=== PATIENT | male | born 1960 | race Caucasian/White ===

== ENCOUNTER → 2021-05-17 16:29 | Outpatient (CLI) | payer OTHER, SELFPAY ==
[2021-05-17 18:12] LABS: PSA,Total - Annual Screen 0.73 ng/mL (0.00-4.00)
== END ==
PROVIDERS: PCP Internal Medicine Infectious Disease; Visit Provider Urology
DX: Z12.5 Encounter for screening for malignant neoplasm of prostate (principal)
CPT/HCPCS: 36415; 84153; G0103

== ENCOUNTER 2022-04-07 04:18 | Inpatient (IN) | payer OTHER, SELFPAY ==
[2022-04-07] VITALS (7 sets, daily range): BP systolic 121–140; BP diastolic 79–97; PULSE 107–137; RESP 18–20; TEMP 36.3–37.3; O2SAT 97–99; BMI 42.3
--- NOTE | 2022-04-07 04:15 | US_ITS ---
STUDY: RENAL ULTRASOUND - COMPLETE REASON FOR EXAM: Male, 61 years old. MAXI on CKD TECHNIQUE: Ultrasound evaluation of the kidneys was performed with real-time and static hansen-scale imaging. COMPARISON: None. FINDINGS: RIGHT KIDNEY: Normal location of the right kidney, which is normal in size. The right kidney measures 12.9 cm x 5.2 cm x 5.3 cm. There is a normal cortex of the right kidney. The renal cortex measures 1.7 cm. There is no right renal mass or cyst. There are no right renal calculi. There is no right hydronephrosis. DISTAL RIGHT URETER: There is non-visualization of the distal right ureter. There is no demonstrated right ureterovesical junction calculus. There is a visualized right ureteral jet. LEFT KIDNEY: Normal location of the left kidney, which is normal in size. The left kidney measures 13.1 cm x 6.2 cm x 6.7 cm. There is a normal cortex of the left kidney. The renal cortex measures 2.0 cm. There is a 1.3 cm x 1.8 cm x 1.6 cm left renal cyst. There are no left renal calculi. There is no left hydronephrosis. DISTAL LEFT URETER: There is non-visualization of the distal left ureter. There is no demonstrated left ureterovesical junction calculus. There is a visualized left ureteral jet. BLADDER: The distended urinary bladder has a volume of 168 ml. There is a normal wall thickness of the distended urinary bladder. There is no demonstrated mass within the urinary bladder. There are no demonstrated bladder calculi. US/Kidney and Bladder IMPRESSION: There is a 1.3 cm x 1.8 cm x 1.6 cm left renal cyst. Electronically Signed: Sergio Pollard MD at 10:54 EDT ,
--- NOTE | 2022-04-07 04:15 | VDLE_ITS ---
Reason For Study: Pulmonary embolism RIGHT LEFT GSV is normal. GSV is normal. CFV is compressible, spontaneous, phasic, CFV is compressible, spontaneous, phasic, competent and demonstrates normal competent, and demonstrates normal augmentation. augmentation. FV is compressible, spontaneous, phasic, FV is compressible, spontaneous, phasic, competent and demonstrates normal competent and demonstrates normal augmentation. augmentation. POP V is compressible, spontaneous, phasic, POP V is compressible, spontaneous, phasic, competent and demonstrates normal competent and demonstrates normal augmentation. augmentation. T/P Trunk is compressible. T/P Trunk is compressible. PTV is compressible. PTV is compressible. RT PerV is compressible. LT PerV is compressible. Procedure This is a venous duplex using B-mode, color flow and spectral Doppler. Exam performed portable in patient room. A preliminary report was called and/or faxed to [facility]. VL/Venous Duplex US - Ezra Extrem Interpretation Summary No evidence for acute deep venous thrombosis bilateral lower extremities with p atent and compressible bilateral great saphenous veins. Ordering Physician: Kaykay Marshall Referring Physician: Basil Romero Performed By: Mikaela Hull RVT
[2022-04-07] MEDS: Acetaminophen 325 MG Tablet 650 MG PO ×2 (10:07→16:02)
[2022-04-07] MEDS: oxyCODONE 5 MG Tablet PO ×2 (10:07→16:02)
[2022-04-07] MEDS: 0.9% Normal Saline 1,000 ML 125 ML IV ×2 (10:10→19:26)
[2022-04-07 10:55] LABS: Urine Sodium 30 mmol/L (Not Establ.)
--- NOTE | 2022-04-07 11:17 | PCM.HP.STD ---
HPI - General General Date of Admission: 04/07/22 Date of Service: 04/07/22 Chief Complaint: Shortness of breath, mainly dyspnea on exertion, low-grade fever, generalized weakness and hematuria, direct admit from [facility] in ED HPI Narrative GAMA AGUILERA, is a 61 M who is being directly admitted in PCU from [facility] ED for generalized weakness, shortness of breath dyspnea on exertion, low-grade fever and generalized weakness for about 4 days. He also has blood in the urine for last 2 days. Patient had recent right hip replacement on 03/29/2022, surgical scar is healed, no discharge, no tenderness or hematoma. 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 He denies chest pain, tightness or pressure. Denies history of MS coronary artery disease or coronary angiogram or cardiac stent. No prior echo. Patient also having low-grade fever and has mild cough for 3 to 4 days. He has swelling of both dorsum of hand, forearm and elbow point. Patient has history of gout and is pearly white nodules on inside of right hand finger. Patient also has swelling of right great toe and ankle. Patient denies nausea vomiting diarrhea. No hematemesis, hematochezia or melena or bright red rectal bleed. Patient had history of hesitancy, difficulties initiation of urine, weak stream and has seen Dr. Burgos about a year ago. As per , he had cystoscopy and was normal. UA done in March shows WBC 11-15, 1+ urine bacteria and a 25. Patient denies burning micturition. Labs done in the troponin reviewed and discussed in assessment plan. Twelve-lead EKG no acute evidence of ischemia. The patient is further admitted in PCU. [facility] Medical History Chronic anemia CKD (chronic kidney disease), stage III HTN (hypertension) Morbid obesity Venous stasis Home Medications cholecalciferol (vitamin D3) 50 mcg (2,000 unit) tablet (Vitamin D3) 1 tab DAILY Check with primary doctor 04/07/22 [History Last Taken Unknown] furosemide 40 mg tablet 1 tab BID Check with primary doctor 04/07/22 [History Last Taken Unknown] losartan 50 mg tablet 1 tab DAILY Check with primary doctor 04/07/22 [History Last Taken Unknown] metolazone 5 mg tablet 1 tab DAILY Check with primary doctor 04/07/22 [History Last Taken Unknown] potassium chloride 10 mEq tablet,extended release 2 tab PO DAILY Check with primary doctor 04/07/22 [History Last Taken Unknown] sildenafil (pulm.hypertension) 20 mg tablet 1 tab DAILY Check with primary doctor 04/07/22 [History Last Taken Unknown] Allergy/AdvReac Type Severity Reaction Status Date / Time Sulfa (Sulfonamide Allergy Intermediate Hives Verified 04/07/22 04:09 Antibiotics) Family History Father Prostate cancer Diabetes Hypertension Grandfather Prostate cancer Mother Diabetes Hypertension Other Colon cancer Surgical History History of right hip replacement History of umbilical hernia repair Social History household members: spouse Smoking Status: Never smoker alcohol intake: never substance use type: does not use ROS ROS Narrative Constitutional: Reports fatigue and weakness. Morbid obesity. HEENT: Reports systems reviewed and no addt'l complaints, except as documented Respiratory/Chest: As mentioned in HPI Gastrointestinal: Denies coffee ground emesis, hematemesis or vomiting Genitourinary: Denies burning urination. Hematuria. History of lower Moshe tract symptoms as mentioned in HPI but no dysuria Musculoskeletal: Pain over both arms, right ankle. ROM limited. Recent right hip replacement. Neurologic: Denies seizure-like activity. No focal weakness. skin: No ulcer. No rash Endocrinology: Reports systems reviewed and no addt'l complaints, except as documented Hematologic/Lymphatic: Bilateral lymphedema. Leg swelling. Rest 14 ROS are negative except as mentioned in HPI Vital Signs Vital Signs Vital Signs: 04/07/22 09:05 Temperature 99.2 F H Temperature Source Oral Pulse Rate 132 H Respiratory Rate 19 H Blood Pressure 124/79 H Blood Pressure Mean 94 Blood Pressure Source Monitor Blood Pressure Position Semi-Fowlers Blood Pressure Location Right Arm Pulse Ox 99 Oxygen Delivery Method Room Air Weight Weight: 295 lb 6.711 oz Body Mass Index (BMI) 42.3 Physical Exam Narrative Physical exam General: Alert, Oriented x3, Cooperative, morbid obesity BMI 42.4 kg/m?. HEENT: Atraumatic, PERRLA, EOMI, Normocephalic Oral: Deep oropharyngeal structures not clearly visualized. No obvious ulcer Mucosal Lesions/ Ulcerations Neck: Supple, No JVD, Negative Carotid Bruits Lungs: Air entry diminished in bilateral lung bases. No crepitation/rhonchi Cardiovascular: Sinus tachycardia, Normal S1, Normal S2, No murmurs Abdomen: Abdominal binder present. History of incisional hernia repair. Bowel Sounds Present, Soft, Non Tender, flat abdomen : Recent decrease in urine output in last 2 days. No renal angle tenderness. No suprapubic tenderness. Extremities: Bilateral lower extremity pitting edema, Capillary Refill Less than 3 Seconds Skin: White chalky nodules over medial aspect of right third finger, right great toe. Musculoskeletal: Tenderness over hand, both elbow joints, right ankle and right great toe. Induration of both forearms. Status post right hip replacement, surgical scar well-healed Neurological: Cranial nerves II-XII grossly intact, DTR 2+/4 and Symmetrical, Neuro grossly intact Psych/Mental Status: flat affect Results Lab / Micro Data Labs: Laboratory Results - last 24 hr 04/07/22 10:24: Ur Random Sodium 30 04/07/22 10:24: Urine Creatinine 82.40 Radiology Impression Renal Ultrasound 04/07/22 04:15 IMPRESSION: There is a 1.3 cm x 1.8 cm x 1.6 cm left renal cyst. Electronically Signed: Sergio Pollard MD at 10:54 EDT , Assessment & Plan Assessment/Plan (1) MAXI (acute kidney injury): PLAN: This is a 61-year-old patient woman admitted directly from ED for multiple acute issues including shortness of breath, dyspnea on mild exertion, low-grade fever, generalized weakness and swelling, severe anemia and acute kidney injury on CKD: 1. Acute normocytic normochromic anemia with history of chronic anemia: In ED, hemoglobin 7.2, MCV 84, platelet 560,000. Patient has mild hematuria. Stool for occult blood negative. Patient had 1 unit of PRBC transfusion in [place] ED. labs CBC CMP are ordered. GI is consulted. No prior history of GI bleed, PUD or chronic GI condition. Protonix 40 mg IV twice daily. 2. Acute kidney injury on CKD stage III, unclear type: Suspected mostly due to diuretic furosemide, anemia or related to recent surgery. Admission BUN/creatinine 50/4.7, prior baseline about 1.8-2.3. IV fluid, hold nephrotoxic medications. Renal and bladder ultrasound. Urine random sodium 30. Kidney and bladder ultrasound done reported normal size of kidneys. Distended neobladder 168 mL. Normal wall thickness. No mass. Kidney and bladder ultrasound done reported normal size of kidneys. Distended neobladder 168 mL. Normal wall thickness. No mass. Electrical Controls Assembler is consulted 3. Dyspnea on exertion, generalized leg swelling edema on furosemide, suspicion of heart failure: 2D echo is ordered. Preliminary venous duplex of lower extremity negative for DVT. Patient has sinus tachycardia. VQ scan ordered. Modified Wells criteria for PE calculated, 3.0 moderate risk 2. VQ scan ordered. BNP ordered 4. Low-grade fever unclear etiology possible gout exacerbation: Patient does not have clear-cut focus of infection. UA shows WBC 11-15, 1+ urine bacteria nitrite negative, LE 25. As per , his fever is less than 100 Fahrenheit at home. Patient has history of gout. Started on Solu-Medrol 40 mg 1 dose and then prednisone 40 mg daily from tomorrow and low-dose allopurinol 100 mg daily. Patient has leukocytosis 12.7 thousand with left shift but may be from inflammatory reason. Chest x-ray right basilar atelectasis with no acute cardiopulmonary findings. CT with right hip showed no evidence of fluid collections, abscess or seroma. Mild right hip stranding. Patient had IV Rocephin 2 g empirically from ED physician. Repeat chest x-ray. Continue empiric ceftriaxone 2 g daily. Patient is vaccinated boosted with COVID-19. 5. Hypertension: Blood pressure in normal range. 6. Recent right hip replacement: PT and OT ordered. 7. Morbid obesity: BMI 42.4 kg/m?. Assistant Fitness Manager consult. Weight loss counseling done. 8. VTE prophylaxis: Pharmacological pulse contraindicated in view of acute anemia. Bilateral SCDs discontinue if platelet count drops less than 50,000 or hemoglobin less than 8 g% Living will/advanced directive/end of life care: Patient does have living will or advanced directive. His is power of workers compensation defense attorney for health. After discussion of benefits/risks procedures involved with full code, DNR CC arrest and DNR CC, the patient opted for full code. Patient and his do want artificial life support including intubation, tube feed, ventilator and/chest compression, central venous catheter, vasopressor and DC shock if needed Total time spent in [id number] encounter in discussion of advanced directive 16 minutes. Charges/Coding Multi Select Codes Visit Charges Visit Charges: 49502 Init Hosp Hospitalists' Procedures Procedures: 20403 Advncd Care Plan 30 Min
[2022-04-07 11:40] LABS: Absolute Lymphocyte Count 0.93 X10^3/uL (0.83-4.51); Absolute Neutrophil Count 11.8 X10^3/uL (2.0-7.7); Basophil# 0.03 X10^3/uL; Basophil% 0.2 % (0-1); Hematocrit 23.5 % (40-54); Hemoglobin 7.5 g/dL (13.0-16.5); Lymphocyte # 0.93 X10^3/ul (0.83-4.51); Lymphocyte % 6.7 % (19-41); Mean Corp Hgb Conc 31.9 g/dL (32-36); Mean Corpuscular Hgb 27.5 pg (27.0-32.0); Mean Corpuscular Volume 86.1 fL (80-94); Mean Platelet Vol. 8.6 fl (6.2-12.0); Monocyte% 7.2 % (0-10); NRBC Flagged by Analyzer 0 % (0-5); Neutrophil # 11.77 X10^3/uL (2.7-7.7); Neutrophil % 84.5 % (47-70); Platelet Count 408 K/mm3 (150-450); RBC Distribution Width CV 16.2 % (11.6-14.6); RBC Distribution Width SD 50.8 fl (35.1-43.9); Red Blood Count 2.73 M/mm3 (4.6-6.2); White Blood Count 13.9 K/mm3 (4.4-11.0)
--- NOTE | 2022-04-07 11:53 | NM_ITS ---
CLINICAL: Male, 61 years old. Intermediate suspicion of PE -- SHORT OF BREATH, RECENT HIP REPLACEMENT -- FEVER -- BLOOD IN URINE NUCLEAR VENTILATION/PERFUSION - LUNG TECHNIQUE: The patient was administered 5.2 mCi of Tc MAA followed by a perfusion lung scan. The patient was administered 50 mCi of Tc DTPA aerosol followed by a ventilation lung scan. Comparison made to prior chest radiograph dated . COMPARISON STUDIES : Comparison is made with prior chest radiograph dated 04/07/2022. FINDINGS: The pulmonary perfusion study demonstrates uniform perfusion throughout both lung alarcon. There are no demonstrated segmental or subsegmental perfusion defects The ventilation study demonstrates uniform ventilation throughout both lung alarcon. There are no segmental or subsegmental ventilation abnormalities. NM/Lung Scan Vent/Perf IMPRESSION: Normal 99m Tc MAA pulmonary perfusion Tc DTPA aerosol ventilation imaging survey, according to revised PIOPED interpretive criteria. Electronically Signed: Sergio Pollard MD at 13:14 EDT ,
[2022-04-07 11:57] LABS: ALB/GLOB Ratio 0.4 RATIO (0.9-2.4); AST(SGOT) 16 U/L (15-37); Alanine Aminotransfer ALT/SGPT 11 U/L (16-61); Albumin, Serum 1.9 g/dL (3.2-5.0); Alkaline Phosphatase 112 U/L (45-117); Anion Gap 13 (5-15); BUN 50 mg/dL (7-18); BUN/Creat Ratio 10.5 RATIO (10-20); Chloride 100 mmol/L (98-107); Creatinine, Serum 4.76 mg/dL (0.70-1.30); EST Glomerular Filtration Rate 13 mL/min (>60); Est Glom Filt Rate - Afr Amer 16 mL/min (>60); Estimated Creatinine Clearance 16.61 ml/min; Globulin 4.6 g/dL (2.2-4.2); Glucose 138 mg/dL (74-106); Potassium 3.6 mmol/L (3.5-5.1); Protein, Total 6.5 g/dL (6.4-8.2); Sodium Level 131 mmol/L (136-145)
[2022-04-07 11:58] LABS: Troponin-I HS 20 pg/mL (3.0-78.0)
[2022-04-07 12:19] LABS: Procalcitonin 1.89 ng/mL (0.00-0.09)
[2022-04-07 12:34] LABS: BNP,B-Type NATRIURETIC PEPTIDE 179.5 pg/mL (0-100)
--- NOTE | 2022-04-07 13:01 | RAD_ITS ---
STUDY: X-RAY CHEST REASON FOR EXAM: Male, 61 years old. Fever TECHNIQUE: Single AP portable view of the chest. COMPARISON: None. FINDINGS: EKG electrodes are seen. Mild elevation of the right hemidiaphragm. There is no demonstrated pleural abnormality. Normal size heart. Normal mediastinum and nargis. Normal visualized pulmonary arteries. There is atherosclerotic tortuosity of the aortic arch and descending thoracic aorta. There are diffuse degenerative changes of the visualized thoracic spine. Normal visualized ribs, clavicles, and shoulders. There is no demonstrated abnormality of the visualized soft tissue structures of the upper abdomen. RAD/Chest 1 View (Portable) IMPRESSION: No acute abnormality is seen. Electronically Signed: Sergio Pollard MD at 13:17 EDT ,
--- NOTE | 2022-04-07 14:15 | CASEMGMT ---
CHARLENE GONZALEZ assessment: Face to Face with patient for initial transition planning/care coordination assessment. CHARLENE GONZALEZ introduced self and role at [facility], pt/ voice understanding and consent to assessment. Pt is sitting up in bed in no distress on room air. Pt falls to sleep when not stimulated verbally and answers most questions for pt.? Care providers, pharmacy,?and demographics verified/updated. ? Presentation: Pt direct admit from [facility] for SOB, weakness, fever Admitting dx: MAXI, anemia, fever PCP: Nick Specialists: Ortho, pt s/p hip replacement 5 weeks ago Preferred Pharmacy: [facility] Insurance: [employer] Prescription Benefit:?[employer] Living Will/HPOA: Pt does have LW/HPOA and is aware that they are not on file at [facility]. states that she is pt's HPOA. LNOK: Mora Alessio, Living Arrangements: Pt lives with in 1 story home and states no concerns at home. Pt is independent with ADL's. Transportation: Pt drives self and states no transportation concerns. DME/HHC: Pt has the following DME: cane, WW, crutches, grab bars, and shower chair. states no need for any further DME and states pt had not been using these anymore up until this week. Pt had [facility] s/p recent surgery and has not been to SNF. states no concerns with pt going home at time of discharge. 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 Pt does not smoke cigarettes or drink ETOH. voices no further concerns/needs. CM to follow for any further discharge planning/needs. Advised pt/ to ask for CM if any further questions/concerns/needs arise, voices understanding. Pt Goal: Home Plan: [place] CHARLENE GONZALEZ
[2022-04-07] MEDS: Allopurinol 100 MG Tablet PO (14:57)
[2022-04-07 15:09] LABS: Troponin-I HS 19 pg/mL (3.0-78.0)
--- NOTE | 2022-04-07 15:43 | CON.PCM.RE_ITS ---
Assessment & Plan Assessment/Plan (1) MAXI (acute kidney injury): (2) Acute anemia: (3) FUO (fever of unknown origin): (4) Acidosis: (5) Hyponatremia: PLAN: Plan Assessment Very pleasant 61-year-old gentleman underlying history of hypertension with multiple hernia surgery admitted to the hospital due to myalgia, low-grade fever. Nephrology is consulted for acute kidney injury #1 acute kidney injury on chronic kidney disease -No available labs were reviewed but documented prior serum creatinine was 1.8 mg/dL prior to admission -Currently serum creatinine is up to 4.5 mg/dL with an EGFR of 13 mils per minute. This is in conjunction with what appears to be gross hematuria according to patient and -Does have some mild uremic symptoms mainly being fatigue #2 volume -Patient was on multiple diuretics at home according to his edema is much improved. Chest x-ray is unremarkable Plan -Patient has acute kidney injury with mild symptoms of uremia. His decline from history is rather very rapid. He has hematuria in conjunction with a serum albumin level of 1.9. This raises possibility of acute GN versus nephrotic syndrome -We will send complements, phospholipase A2 receptor antibody in conjunction with ANCA's and anti-GBM -Repeat urinalysis with urine protein creatinine ratio -Repeat bladder scan might need Warren catheter for accurate I's and O's -If no improvement in renal function patient will need renal placement therapy followed by renal biopsy on Sunday for definitive diagnosis Discussed with in detail. All questions were answered Please call [phone] with any concerns HPI Consult Data Date of Consult: 04/07/22 HPI Narrative Reason for Consultation: Acute kidney injury on chronic kidney disease HPI Narrative: GAMA AGUILERA, is a 61 M who presents from outside hospital due to constellation of generalized weakness, low-grade fever in conjunction with hematuria. 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 Apparently patient was doing relatively well until about 2 weeks ago. He states that he has been having intermittent hematuria for about 1 month. Weakness myalgia poor appetite has been going on over the past few weeks. In the past he did have hematuria and was seen by urology who did a cystoscopy apparently was unremarkable. In reviewing outside records it appears that his serum creatinine prior was 1.8 mg/dL daphney to 4.5 mg/dL at outside hospital and today creatinine of 4.7 mg/dL His urine output is very marginal. Currently denies any chest discomfort. Complains of arm being swollen [facility] Medical History Chronic anemia CKD (chronic kidney disease), stage III HTN (hypertension) Morbid obesity Venous stasis Home Medications cholecalciferol (vitamin D3) 50 mcg (2,000 unit) tablet (Vitamin D3) 1 tab DAILY Check with primary doctor 04/07/22 [History Last Taken Unknown] furosemide 40 mg tablet 1 tab BID Check with primary doctor 04/07/22 [History Last Taken Unknown] losartan 50 mg tablet 1 tab DAILY Check with primary doctor 04/07/22 [History Last Taken Unknown] metolazone 5 mg tablet 1 tab DAILY Check with primary doctor 04/07/22 [History Last Taken Unknown] potassium chloride 10 mEq tablet,extended release 2 tab PO DAILY Check with primary doctor 04/07/22 [History Last Taken Unknown] sildenafil (pulm.hypertension) 20 mg tablet 1 tab DAILY Check with primary doctor 04/07/22 [History Last Taken Unknown] Allergy/AdvReac Type Severity Reaction Status Date / Time Sulfa (Sulfonamide Allergy Intermediate Hives Verified 04/07/22 04:09 Antibiotics) Family History Father Prostate cancer Diabetes Hypertension Grandfather Prostate cancer Mother Diabetes Hypertension Other Colon cancer Surgical History History of right hip replacement History of umbilical hernia repair Social History household members: spouse Smoking Status: Never smoker alcohol intake: never substance use type: does not use ROS ROS Narrative 12 review system is negative other than stated above Physical Exam Narrative Patient is awake fatigued ill-appearing able to follow some simple commands Normocephalic atraumatic extra muscles intact Oral mucosa slightly dry Neck is supple Breath sounds are diminished S1-S2 tachycardic No Warren catheter chronic skin changes in lower extremity Does have abdominal binder No focal deficit Lab / Micro Data Attestation: I reviewed the patient's lab results. Result Diagrams: 04/07/22 11:35 04/07/22 11:35 Labs: Laboratory Results - last 24 hr 04/07/22 10:24: Ur Random Sodium 30 04/07/22 10:24: Urine Creatinine 82.40 04/07/22 11:35: WBC 13.9 H, RBC 2.73 L, Hgb 7.5 L, Hct 23.5 L, MCV 86.1, MCH 27.5, MCHC 31.9 L, RDW Std Deviation 50.8 H, RDW Coeff of Singh 16.2 H, Plt Count 408, MPV 8.6, Immature Gran % (Auto) 1.400 H, Neut % (Auto) 84.5 H, Lymph % ( Auto) 6.7 L, [place] % (Auto) 7.2, Eos % (Auto) 0.0, Baso % (Auto) 0.2, Absolute Neuts (auto) 11.8 H, Absolute Lymphs (auto) 0.93, Nucleated RBC % 0 04/07/22 11:35: Sodium 131 L, Potassium 3.6, Chloride 100, Carbon Dioxide 18.0 L , Anion Gap 13, BUN 50 H, Creatinine 4.76 H, Estim Creat Clear Calc 16.61, Est GFR (MDRD) Af Amer 16 L, Est GFR (MDRD) Non-Af 13 L, BUN/Creatinine Ratio 10.5, Glucose 138 H, Calcium 9.0, Total Bilirubin 0.70, AST 16, ALT 11 L, Alkaline Phosphatase 112, Total Protein 6.5, Albumin 1.9 L, Globulin 4.6 H, Albumin/Globulin Ratio 0.4 L 04/07/22 11:35: Procalcitonin 1.89 H 04/07/22 11:35: Troponin I High Sens 20 04/07/22 11:35: B-Natriuretic Peptide 179.5 H 04/07/22 13:50: Troponin I High Sens 19 Radiology Impression Renal Ultrasound 04/07/22 04:15 IMPRESSION: There is a 1.3 cm x 1.8 cm x 1.6 cm left renal cyst. Electronically Signed: Sergio Pollard MD at 10:54 EDT , Venous Doppler Study 04/07/22 04:15 Interpretation Summary No evidence for acute deep venous thrombosis bilateral lower extremities with patent and compressible bilateral great saphenous veins. Ordering Physician: Kaykay Marshall Referring Physician: Basil Romero Performed By: Mikaela Hull RVT Lung Scan-VQ NM 04/07/22 11:53 IMPRESSION: Normal 99m Tc MAA pulmonary perfusion Tc DTPA aerosol ventilation imaging survey, according to revised PIOPED interpretive criteria. Electronically Signed: Sergio Pollard MD at 13:14 EDT , Chest X-Ray 04/07/22 13:01 IMPRESSION: No acute abnormality is seen. Electronically Signed: Sergio Pollard MD at 13:17 EDT ,
--- NOTE | 2022-04-07 15:55 | VDUE_ITS ---
Reason For Study: SWELLING Right Proximal Right jugular vein is spontaneous, widely patent, phasic, with no intraluminal echogenicity noted. Right subclavian vein is spontaneous, widely patent, phasic, with no intraluminal echogenicity noted. Right Lower Arm Right radial vein is compressible. Right ulnar vein is compressible. Right Arm Right axillary vein is spontaneous, patent, phasic, competent, compressible and demonstrates augmentation. Right brachial vein is compressible. Right cephalic vein is compressible. Right basilic vein is compressible. VL/Venous Duplex US, Unilateral Interpretation Summary Deep veins of the right upper extremity are patent and compressible segmentally . There is no evidence of deep vein thrombosis. The superficial veins of the right upper extr emity, the basilic and cephalic veins, are patent and compressible. There is no evidence of right upper extremity superficial thrombophlebitis involving the veins imaged. Ordering Physician: Ernesto Cain Referring Physician: Kaykay Marshall Performed By: Hanane Peters, CALI, RVT ?
[2022-04-07 16:47] LABS: Hematocrit 24.4 % (40-54); Hemoglobin 7.8 g/dL (13.0-16.5)
[2022-04-07 17:22] LABS: CPK Total, Creatine Kinase 59 U/L (39-308); Phosphorus 5.9 mg/dL (2.5-4.9); Troponin-I HS 20 pg/mL (3.0-78.0); Uric Acid 11.5 mg/dL (3.5-7.2)
[2022-04-07 22:17] LABS: Hematocrit 23.4 % (40-54); Hemoglobin 7.4 g/dL (13.0-16.5)
[2022-04-08] VITALS (12 sets, daily range): BP systolic 128–154; BP diastolic 86–94; PULSE 79–119; RESP 16–20; TEMP 36.7–37.1; O2SAT 94–100
[2022-04-08 05:59] LABS: Absolute Lymphocyte Count 1.26 X10^3/uL (0.83-4.51); Absolute Neutrophil Count 12.8 X10^3/uL (2.0-7.7); Basophil# 0.01 X10^3/uL; Basophil% 0.1 % (0-1); Hematocrit 22.8 % (40-54); Hemoglobin 7.3 g/dL (13.0-16.5); Lymphocyte # 1.26 X10^3/ul (0.83-4.51); Lymphocyte % 8.4 % (19-41); Mean Corpuscular Hgb 28.1 pg (27.0-32.0); Mean Corpuscular Volume 87.7 fL (80-94); Mean Platelet Vol. 8.9 fl (6.2-12.0); Monocyte# 0.81 X10^3/uL; Monocyte% 5.4 % (0-10); NRBC Flagged by Analyzer 0 % (0-5); Neutrophil # 12.79 X10^3/uL (2.7-7.7); Platelet Count 418 K/mm3 (150-450); RBC Distribution Width SD 51.8 fl (35.1-43.9)
[2022-04-08 06:33] LABS: ALB/GLOB Ratio 0.4 RATIO (0.9-2.4); AST(SGOT) 16 U/L (15-37); Alanine Aminotransfer ALT/SGPT 14 U/L (16-61); Albumin, Serum 1.7 g/dL (3.2-5.0); Alkaline Phosphatase 119 U/L (45-117); Anion Gap 12 (5-15); BUN 61 mg/dL (7-18); BUN/Creat Ratio 11.9 RATIO (10-20); Calcium,Total 9.1 mg/dL (8.5-10.1); Chloride 101 mmol/L (98-107); Creatinine, Serum 5.12 mg/dL (0.70-1.30); EST Glomerular Filtration Rate 12 mL/min (>60); Est Glom Filt Rate - Afr Amer 15 mL/min (>60); Estimated Creatinine Clearance 15.45 ml/min; Globulin 4.7 g/dL (2.2-4.2); Glucose 123 mg/dL (74-106); Potassium 4.2 mmol/L (3.5-5.1); Protein, Total 6.4 g/dL (6.4-8.2); Sodium Level 131 mmol/L (136-145)
--- NOTE | 2022-04-08 09:20 | PCM.PN.HOSP ---
Subjective Subjective Follow-up for multiple acute medical conditions severe anemia, generalized swelling, shortness of breath, acute kidney injury and possible gouty exacerbation Objective Data Objective Data Vital Signs: Vital Signs Temp Pulse Resp BP Pulse Ox O2 Del Method 98.0 F 98 20 H 128/94 H 98 Room Air 04/08/22 08:28 04/08/22 08:28 04/08/22 08:28 04/08/22 08:28 04/08/22 08:28 04/08/22 08:28 Oxygen Delivery Method Room Air Weight: 296 lb 15.402 oz Body Mass Index (BMI) 42.3 Intake & Output: Intake and Output for Last 24 Hours 04/06/22 04/07/22 04/08/22 23:59 23:59 23:59 Intake Total 2326.25 / 2326.25 776.75 / 776.75 Output Total 450 / 450 Balance 2326.25 / 2326.25 326.75 / 326.75 Lab / Micro Data Result Diagrams: 04/08/22 05:17 04/08/22 05:17 Labs: Laboratory Results - last 24 hr 04/07/22 10:24: Ur Random Sodium 04/07/22 10:24: Urine Creatinine 82.40 04/07/22 11:35: WBC 13.9 H, RBC 2.73 L, Hgb 7.5 L, Hct 23.5 L, MCV 86.1, MCH 27.5, MCHC 31.9 L, RDW Std Deviation 50.8 H, RDW Coeff of Singh 16.2 H, Plt Count 408, MPV 8.6, Immature Gran % (Auto) 1.400 H, Neut % (Auto) 84.5 H, Lymph % (Auto) 6.7 L, [place] % (Auto) 7.2, Eos % (Auto) 0.0, Baso % (Auto) 0.2, Absolute Neuts (auto) 11.8 H, Absolute Lymphs (auto) 0.93, Nucleated RBC % 0 04/07/22 11:35: Sodium 131 L, Potassium 3.6, Chloride 100, Carbon Dioxide 18.0 L, Anion Gap 13, BUN 50 H, Creatinine 4.76 H, Estim Creat Clear Calc 16.61, Est GFR (MDRD) Af Amer 16 L, Est GFR (MDRD) Non-Af 13 L, BUN/Creatinine Ratio 10.5, Glucose 138 H, Calcium 9.0, Total Bilirubin 0.70, AST 16, ALT 11 L, Alkaline Phosphatase 112, Total Protein 6.5, Albumin 1.9 L, Globulin 4.6 H, Albumin/Globulin Ratio 0.4 L 04/07/22 11:35: Procalcitonin 1.89 H 04/07/22 11:35: Troponin I High Sens 20 04/07/22 11:35: B-Natriuretic Peptide 179.5 H 04/07/22 13:50: Troponin I High Sens 19 04/07/22 14:10: COVID-19 (TAE) Negative 04/07/22 16:30: Troponin I High Sens 20 04/07/22 16:30: Hgb 7.8 L, Hct 24.4 L 04/07/22 16:30: Uric Acid 11.5 H, Phosphorus 5.9 H, Total Creatine Kinase 59 04/07/22 22:00: Hgb 7.4 L, Hct 23.4 L 04/08/22 05:17: WBC 15.0 H, RBC 2.60 L, Hgb 7.3 L, Hct 22.8 L, MCV 87.7, MCH 28.1, MCHC 32.0, RDW Std Deviation 51.8 H, RDW Coeff of Singh 16.0 H, Plt Count 418, MPV 8.9, Immature Gran % (Auto) 1.100 H, Neut % (Auto) 85.0 H, Lymph % (Auto) 8.4 L, [place] % (Auto) 5.4, Eos % (Auto) 0.0, Baso % (Auto) 0.1, Absolute Neuts (auto) 12.8 H, Absolute Lymphs (auto) 1.26, Nucleated RBC % 0 04/08/22 05:17: Sodium 131 L, Potassium 4.2, Chloride 101, Carbon Dioxide 18.0 L, Anion Gap 12, BUN 61 H, Creatinine 5.12 H, Estim Creat Clear Calc 15.45, Est GFR (MDRD) Af Amer 15 L, Est GFR (MDRD) Non-Af 12 L, BUN/Creatinine Ratio 11.9, Glucose 123 H, Calcium 9.1, Total Bilirubin 0.30, AST 16, ALT 14 L, Alkaline Phosphatase 119 H, Total Protein 6.4, Albumin 1.7 L, Globulin 4.7 H, Albumin/Globulin Ratio 0.4 L Micro: Microbiology 04/07/22 14:10 Mucosa - Nasopharyngeal Respiratory Panel (PCR) - Final Radiography Diagnostic Testing: Radiology Impression Renal Ultrasound 04/07/22 04:15 IMPRESSION: There is a 1.3 cm x 1.8 cm x 1.6 cm left renal cyst. Electronically Signed: Sergio Pollard MD at 10:54 EDT , Venous Doppler Study 04/07/22 04:15 Interpretation Summary No evidence for acute deep venous thrombosis bilateral lower extremities with patent and compressible bilateral great saphenous veins. Ordering Physician: Kaykay Marshall Referring Physician: Basil Romero Performed By: Mikaela Hull Giana Lung Scan-VQ NM 04/07/22 11:53 IMPRESSION: Normal 99m Tc MAA pulmonary perfusion Tc DTPA aerosol ventilation imaging survey, according to revised PIOPED interpretive criteria. Electronically Signed: Sergio Pollard MD at 13:14 EDT , Chest X-Ray 04/07/22 13:01 IMPRESSION: No acute abnormality is seen. Electronically Signed: Sergio Pollard MD at 13:17 EDT , Physical Exam Narrative mild improvement in shortness of breath. Upper extremities are still swollen. Venous duplex upper extremity ordered. Urine output class, Warren catheter ordered Physical exam General: Alert, Oriented x3, Cooperative, morbid obesity BMI 42.4 kg/m?. HEENT: Atraumatic, PERRLA, EOMI, Normocephalic Oral: Deep oropharyngeal structures not clearly visualized. No obvious ulcer Mucosal Lesions/ Ulcerations Neck: Supple, No JVD, Negative Carotid Bruits Lungs: Air entry diminished in bilateral lung bases. No crepitation/rhonchi Cardiovascular: Sinus tachycardia, Normal S1, Normal S2, No murmurs Abdomen: Abdominal binder present. History of incisional hernia repair. Bowel Sounds Present, Soft, Non Tender, flat abdomen : Recent decrease in urine output in last 2 days. No renal angle tenderness. No suprapubic tenderness. Extremities: Bilateral lower extremity pitting edema, Capillary Refill Less than 3 Seconds Skin: White chalky nodules over medial aspect of right third finger, right great toe. Musculoskeletal: Tenderness over hand, forearms, both elbow joints, right ankle and right great toe. Induration of both forearms. Status post right hip replacement, surgical scar well-healed Neurological: Cranial nerves II-XII grossly intact, DTR 2+/4 and Symmetrical, Neuro grossly intact Psych/Mental Status: flat affect Assessment & Plan Assessment/Plan (1) MAXI (acute kidney injury): PLAN: This is a 61-year-old patient woman admitted directly from ED for multiple acute issues including shortness of breath, dyspnea on mild exertion, low-grade fever, generalized weakness and swelling, severe anemia and acute kidney injury on CKD: 1. Acute normocytic normochromic anemia with history of chronic anemia: In ED, hemoglobin 7.2, MCV 84, platelet 560,000. Patient has mild hematuria. Stool for occult blood negative. Patient had 1 unit of PRBC transfusion in [place] ED. labs CBC CMP are ordered. GI is consulted. No prior history of GI bleed, PUD or chronic GI condition. Protonix 40 mg IV twice daily. 04/08: Hemoglobin is stable between 7 to 8 g%. No acute external bleeding. Discussed with the GI. No acute indication for transfusion until hemoglobin drops less than 7 2. Acute kidney injury on CKD stage III, unclear type: Suspected mostly due to diuretic furosemide, anemia or related to recent surgery. Admission BUN/creatinine 50/4.7, prior baseline about 1.8-2.3. IV fluid, hold nephrotoxic medications. Renal and bladder ultrasound. Urine random sodium 30. Kidney and bladder ultrasound done reported normal size of kidneys. Distended neobladder 168 mL. Normal wall thickness. No mass. Kidney and bladder ultrasound done reported normal size of kidneys. Distended neobladder 168 mL. Normal wall thickness. No mass. Wire Border Assembler is consulted 04/08: Discussed with the jig fitter. Suspicion of RPGN. Urine for protein, creatinine and osmolality ordered. Warren cath patient ordered. SPEP and immunofixation pending. Urine random protein 218 mg, protein creatinine ratio 2.4 g. UA done in ED, WBC 11-15, mild hematuria. Repeat UA ordered. Discussed with the jig fitter. Possible RPGN, plan for kidney biopsy on Sunday. 3. Dyspnea on exertion, generalized leg swelling edema on furosemide, suspicion of heart failure: 2D echo is ordered. venous duplex of lower extremity negative for DVT. Patient has sinus tachycardia. VQ scan ordered. Modified Wells criteria for PE calculated, 3.0 moderate risk 2. BNP 179 04/08: VQ scan reported normal. Venous duplex upper extremities ordered. 4. Low-grade fever unclear etiology possible gout exacerbation: Patient does not have clear-cut focus of infection. UA shows WBC 11-15, 1+ urine bacteria nitrite negative, LE 25. As per , his fever is less than 100 Fahrenheit at home. Patient has history of gout. Started on Solu-Medrol 40 mg 1 dose and then prednisone 40 mg daily from tomorrow and low-dose allopurinol 100 mg daily. Patient has leukocytosis 12.7 thousand with left shift but may be from inflammatory reason. Chest x-ray right basilar atelectasis with no acute cardiopulmonary findings. CT with right hip showed no evidence of fluid collections, abscess or seroma. Mild right hip stranding. Patient had IV Rocephin 2 g empirically from ED physician. Repeat chest x-ray. Continue empiric ceftriaxone 2 g daily. Patient is vaccinated boosted with COVID-19. 04/08: Uric acid is high. Phosphorus 5.9. Allopurinol dose increased 200 mg twice daily. 5. Hypertension: Blood pressure in normal range. 6. Recent right hip replacement: PT and OT ordered. 7. Morbid obesity: BMI 42.4 kg/m?. Aircraft Systems Repairer consult. Weight loss counseling done. 8. VTE prophylaxis: Pharmacological pulse contraindicated in view of acute anemia. Bilateral SCDs discontinue if platelet count drops less than 50,000 or hemoglobin less than 8 g% Total time of the visit including total time spent in counseling or coordination of care, (more than 50% of the total time, spent in obtaining medical information from nurses and other ancillary care providers,explaining to the patient about labs, imaging, diagnosis and management), discussion with consultants jig fitter and patient access associate, review of labs and imaging is 45 minutes. Living will/advanced directive/end of life care: Patient does have living will or advanced directive. His is power of sales and in home delivery specialist for health. After discussion of benefits/risks procedures involved with full code, DNR CC arrest and DNR CC, the patient opted for full code. Patient and his do want artificial life support including intubation, tube feed, ventilator and/chest compression, central venous catheter, vasopressor and DC shock if needed Charges/Coding Visit Charges Inpatient E&M: 84090 [facility] Hosp L3
--- NOTE | 2022-04-08 10:51 | DCINST_ITS ---
Discharge Instructions Diet Discharge Diet: No restrictions Activity Discharge Activity: Return to Normal Activity and May Not Drive Follow Up Care Test Results: Test results from this visit will be discussed in further detail at your follow- up appointment, if applicable. Discharge Plan Admission Admit Date/Time: 04/07/22 04:18 Attending Provider: Grzegorz Ortiz Primary Care Provider: Basil Romero Consulting Providers: Kaykay Marshall ; Ernesto Cain Discharge Orders/Prescriptions Prescriptions: No Action losartan 50 mg tablet 1 tab DAILY Label Comments: 1 tablet by mouth once a day furosemide 40 mg tablet 1 tab BID Label Comments: 1 tablet by mouth twice a day metolazone 5 mg tablet 1 tab DAILY Label Comments: TAKE 1 TABLET BY MOUTH ONCE DAILY potassium chloride 10 mEq tablet extended release 2 tab PO DAILY Label Comments: 2 tablet by mouth once a day sildenafil (pulm.hypertension) 20 mg tablet 1 tab DAILY Label Comments: TAKE 1 TABLET BY MOUTH NEEDED cholecalciferol (vitamin D3) [Vitamin D3] 50 mcg (2,000 unit) tablet 1 tab DAILY Label Comments: 1 tablet by mouth once a day Referrals / Follow Up: Basil Romero MD [Primary Care Provider] -
[2022-04-08] MEDS: Allopurinol 100 MG Tablet PO ×2 (10:54→15:54)
[2022-04-08] MEDS: Lidocaine Jelly 2% 20 ML Syringe (URO-JET) 1 APPLIC TOPICAL (10:54)
[2022-04-08] MEDS: predniSONE 20 MG Tablet 40 MG PO (10:54)
[2022-04-08] MEDS: 0.9% Saline Lock 10 ML Syringe IV ×2 (11:34→21:09)
[2022-04-08 12:11] LABS: Protein, Urine (Random) 218.2 mg/dL (<11.9); Protein:Creat Ratio 2474 mg/g CRE (0-200); Urine Chloride 26 mmol/L (Not Establ.); Urine Sodium 25 mmol/L (Not Establ.)
[2022-04-08 12:12] LABS: Protein, Urine (Random) 218.2 mg/dL (<11.9)
[2022-04-08 12:13] LABS: Osmolality, Urine 342 mOsm/KG
--- NOTE | 2022-04-08 13:11 | PN.RENAL_ITS ---
Subjective Subjective Follow-up acute kidney injury chronic kidney disease -No acute events overnight, Warren catheter placed -No improvement renal function Objective Data Objective Data Vital Signs: Vital Signs Temp Pulse Resp BP Pulse Ox O2 Del Method 98.0 F 98 20 H 128/94 H 98 Room Air 04/08/22 08:28 04/08/22 08:28 04/08/22 08:28 04/08/22 08:28 04/08/22 08:28 04/08/22 08:28 Oxygen Delivery Method Room Air Weight: 134.7 kg Body Mass Index (BMI) 42.3 Intake & Output: Intake and Output for Last 24 Hours 04/06/22 04/07/22 04/08/22 23:59 23:59 23:59 Intake Total 2326.25 / 2326.25 886.75 / 886.75 Output Total 450 / 450 Balance 2326.25 / 2326.25 436.75 / 436.75 Lab / Micro Data Attestation: I reviewed the patient's lab results. Result Diagrams: 04/08/22 05:17 04/08/22 05:17 Labs: Laboratory Results - last 24 hr 04/07/22 11:17: U Random Total Protein 218.2 H, Ur Random Sodium 25, Urine Creatinine 88.20, Protein/Creatinin Ratio 2474 H, Urine Potassium 42.0, Urine Chloride 26 04/07/22 13:50: Troponin I High Sens 19 04/07/22 14:10: COVID-19 (TAE) Negative 04/07/22 16:30: Troponin I High Sens 20 04/07/22 16:30: Hgb 7.8 L, Hct 24.4 L 04/07/22 16:30: Uric Acid 11.5 H, Phosphorus 5.9 H, Total Creatine Kinase 59 04/07/22 22:00: Hgb 7.4 L, Hct 23.4 L 04/08/22 05:17: WBC 15.0 H, RBC 2.60 L, Hgb 7.3 L, Hct 22.8 L, MCV 87.7, MCH 28.1, MCHC 32.0, RDW Std Deviation 51.8 H, RDW Coeff of Singh 16.0 H, Plt Count 418, MPV 8.9, Immature Gran % (Auto) 1.100 H, Neut % (Auto) 85.0 H, Lymph % (Auto) 8.4 L, [place] % (Auto) 5.4, Eos % (Auto) 0.0, Baso % (Auto) 0.1, Absolute Neuts (auto) 12.8 H, Absolute Lymphs (auto) 1.26, Nucleated RBC % 0 04/08/22 05:17: Sodium 131 L, Potassium 4.2, Chloride 101, Carbon Dioxide 18.0 L , Anion Gap 12, BUN 61 H, Creatinine 5.12 H, Estim Creat Clear Calc 15.45, Est GFR (MDRD) Af Amer 15 L, Est GFR (MDRD) Non-Af 12 L, BUN/Creatinine Ratio 11.9, Glucose 123 H, Calcium 9.1, Total Bilirubin 0.30, AST 16, ALT 14 L, Alkaline Phosphatase 119 H, Total Protein 6.4, Albumin 1.7 L, Globulin 4.7 H, Albumin/Globulin Ratio 0.4 L 04/08/22 11:17: Urine Osmolality 342, U Random Total Protein 218.2 H, Urine Creatinine 91.50 Micro: Microbiology 04/07/22 10:24 Urine, Clean Catch Urine Culture - Preliminary Culture exhibits no growth. 04/07/22 14:10 Mucosa - Nasopharyngeal Respiratory Panel (PCR) - Final Radiography Diagnostic Testing: Radiology Impression Venous Doppler Study 04/07/22 04:15 Interpretation Summary No evidence for acute deep venous thrombosis bilateral lower extremities with patent and compressible bilateral great saphenous veins. Ordering Physician: Kaykay Marshall Referring Physician: Basil Romero Performed By: Mikaela Hull RVT Lung Scan-VQ NM 04/07/22 11:53 IMPRESSION: Normal 99m Tc MAA pulmonary perfusion Tc DTPA aerosol ventilation imaging survey, according to revised PIOPED interpretive criteria. Electronically Signed: Sergio Pollard MD at 13:14 EDT , Chest X-Ray 04/07/22 13:01 IMPRESSION: No acute abnormality is seen. Electronically Signed: Sergio Pollard MD at 13:17 EDT , Physical Exam Narrative Awake responsive answers questions appropriately follows commands S1-S2 regular Breath sounds are equal Abdomen distended Right upper extremity swollen Warren catheter present with dark yellow urine Assessment & Plan Assessment/Plan (1) MAXI (acute kidney injury): (2) Acute anemia: (3) FUO (fever of unknown origin): (4) Acidosis: (5) Hyponatremia: PLAN: Plan Assessment Very pleasant 61-year-old gentleman underlying history of hypertension with multiple hernia surgery admitted to the hospital due to myalgia, low-grade fever. Nephrology is consulted for acute kidney injury #1 acute kidney injury on chronic kidney disease -No available labs were reviewed but documented prior serum creatinine was 1.8 mg/dL prior to admission -Currently serum creatinine is up to 4.5 mg/dL with an EGFR of 13 mils per minute. This is in conjunction with what appears to be gross hematuria according to patient and -Does have some mild uremic symptoms mainly being fatigue -Serum creatinine worsened to 5.1 mg/dL today -GN work-up sent awaiting results #2 volume -Not expanded on exam #3 anemia -Hemoglobin 7.3, paraproteinemia pending #4 acidemia -Mild secondary to renal dysfunction #5 hyperuricemia -Should improve with improvement renal function #6 mild hyponatremia -Again secondary to acute kidney injury asymptomatic Plan -No major improvement in renal function -We will plan a renal biopsy on Sunday followed by renal placement therapy Discussed with in detail. All questions were answered Please call [phone] with any concerns
--- NOTE | 2022-04-08 14:25 | ECHOCS_ITS ---
Reason For Study: CHF Procedure This was a 2D Doppler, Color Flow transthoracic echocardiogram. The study was technically difficult. Contrast injection was performed. Exam performed portable in patient room. Left Ventricle Normal LV size. Left ventricular systolic function is normal. The estimated ejection fraction is 60 %. No regional wall motion abnormalities noted. Right Ventricle Normal RV size. Normal systolic function. Atria Normal left atrium. Normal right atrium. Mitral Valve Mitral valve not well visualized. Tricuspid Valve Normal tricuspid valve. Aortic Valve The aortic valve is not well visualized. Pulmonic Valve The pulmonic valve is not well visualized. Great Vessels Normal aortic root. The pulmonary is not well visualized. Pericardium/Pleural No pericardial effusion. Medication Diluted definity 2ml given slow IV push to enhance endocardial definition. MMode/2D Measurements & Calculations Ao root diam: 3.8 cm LAV(MOD-sp2): 66.2 ml LVAd ap4: 40.1 cm2 LVLd ap4: 8.7 cm EDV(MOD-sp4): 146.4 ml EDV(sp4-el): 157.3 ml LVAs ap4: 28.4 cm2 LVLs ap4: 8.3 cm ESV(MOD-sp4): 79.3 ml ESV(sp4-el): 82.5 ml EF(MOD-sp4): 45.9 % EF(sp4-el): 47.6 % SV(MOD-sp4): 67.1 ml SV(sp4-el): 74.8 ml LA dimension(2D): 4.5 cm Doppler Measurements & Calculations MV E max blas: 155.7 cm/sec Ao V2 max: 177.8 cm/sec LV V1 max: 130.5 cm/sec Ao max P.7 mmHg LV V1 max P.8 mmHg Ao V2 mean: 125.9 cm/sec LV V1 mean P.6 mmHg Ao mean P.2 mmHg LV V1 mean: 86.4 cm/sec Ao V2 VTI: 28.3 cm LV V1 VTI: 24.9 cm PA V2 max: 113.8 cm/sec ECHO/Echo Complete W/ Contrast Interpretation Summary Normal LV size. Left ventricular systolic function is normal. The estimated ejection fraction is 60 %. Contrast injection was performed. The study was technically limited. The study was technically difficult. Ordering Physician: Grzegorz Ortiz Referring Physician: Kaykay Marshall Performed By: Liya Whitley RCS
--- NOTE | 2022-04-08 16:39 | PCM.CONS.GEN ---
Assessment & Plan Assessment/Plan (1) Acute anemia: PLAN: The differential diagnosis for acute anemia would be hemolysis, gastrointestinal loss secondary to AVMs, gastritis associated with hypoalbuminemia, atrophic gastritis secondary to weight loss, less likely autoimmune disease such as celiac sprue. He should undergo an upper endoscopy and possibly capsule endoscopy and colonoscopy to evaluate his GI tract. He was explained alternatives, risk, benefits including outstanding bleeding, infection, sepsis, perforation, need for emergent . He will have an ASA of 3. HPI Consult Data Date of Consult: 04/08/22 HPI Narrative Reason for Consultation: Anemia HPI Narrative: GAMA AGUILERA, is a 61 M who presented from an outside hospital with generalized weakness, shortness of breath dyspnea on exertion, low-grade fever and generalized weakness for about 4 days.? He did also complained of hematuria.? Patient had recent right hip replacement on 03/29/2022, surgical scar is healed, no discharge, no tenderness or hematoma. He has a past medical history of hypertension, uncontrolled gout, CKD stage III, pulmonary hypertension from unknown cause (he does not have a previous echocardiogram), and anemia. He has been having low-grade fevers and intermittent cough for the last few days. He was COVID-negative. His main complaint is that he is having a lot of swelling on all extremities. Denies history of [place] coronary artery disease or coronary angiogram or cardiac stent.? Patient denies nausea vomiting diarrhea.? No hematemesis, hematochezia or melena or bright red rectal bleed.? Patient had history of hesitancy, difficulties initiation of urine, weak stream and has seen Dr. Burgos about a year ago.? As per , he had cystoscopy and was normal.? UA done in March shows WBC 11-15, 1+ urine bacteria and a 25.? Patient denies burning micturition.? I was consulted to do the patient worsening anemia. [facility] Medical History Chronic anemia CKD (chronic kidney disease), stage III HTN (hypertension) Morbid obesity Venous stasis Home Medications cholecalciferol (vitamin D3) 50 mcg (2,000 unit) tablet (Vitamin D3) 1 tab DAILY Check with primary doctor 04/07/22 [History Last Taken Unknown] furosemide 40 mg tablet 1 tab BID Check with primary doctor 04/07/22 [History Last Taken Unknown] losartan 50 mg tablet 1 tab DAILY Check with primary doctor 04/07/22 [History Last Taken Unknown] metolazone 5 mg tablet 1 tab DAILY Check with primary doctor 04/07/22 [History Last Taken Unknown] potassium chloride 10 mEq tablet,extended release 2 tab PO DAILY Check with primary doctor 04/07/22 [History Last Taken Unknown] sildenafil (pulm.hypertension) 20 mg tablet 1 tab DAILY Check with primary doctor 04/07/22 [History Last Taken Unknown] Allergy/AdvReac Type Severity Reaction Status Date / Time Sulfa (Sulfonamide Allergy Intermediate Hives Verified 04/07/22 04:09 Antibiotics) Family History Father Prostate cancer Diabetes Hypertension Grandfather Prostate cancer Mother Diabetes Hypertension Other Colon cancer Surgical History History of right hip replacement History of umbilical hernia repair Social History household members: spouse Smoking Status: Never smoker alcohol intake: never substance use type: does not use ROS ROS Narrative Constitutional: Reports fatigue and weakness. Morbid obesity. HEENT: Reports systems reviewed and no addt'l complaints, except as documented Respiratory/Chest: As mentioned in HPI Gastrointestinal: Denies coffee ground emesis, hematemesis or vomiting Genitourinary: Denies burning urination. Hematuria. History of lower [place] tract symptoms as mentioned in HPI but no dysuria Musculoskeletal: Pain over both arms, right ankle. ROM limited. Recent right hip replacement. Neurologic: Denies seizure-like activity. No focal weakness. skin: No ulcer. No rash Endocrinology: Reports systems reviewed and no addt'l complaints, except as documented Hematologic/Lymphatic: Bilateral lymphedema. Leg swelling. Rest 14 ROS are negative except as mentioned in HPI Physical Exam Narrative Awake responsive answers questions appropriately follows commands S1-S2 regular Breath sounds are equal Abdomen distended Right upper extremity swollen Warren catheter present with dark yellow urine Lab / Micro Data Result Diagrams: 04/08/22 05:17 04/08/22 05:17 Labs: Laboratory Results - last 24 hr 04/07/22 11:17: U Random Total Protein 218.2 H, Ur Random Sodium 25, Urine Creatinine 88.20, Protein/Creatinin Ratio 2474 H, Urine Potassium 42.0, Urine Chloride 26 04/07/22 14:10: COVID-19 (TAE) Negative 04/07/22 16:30: Troponin I High Sens 20 04/07/22 16:30: Hgb 7.8 L, Hct 24.4 L 04/07/22 16:30: Uric Acid 11.5 H, Phosphorus 5.9 H, Total Creatine Kinase 59 04/07/22 22:00: Hgb 7.4 L, Hct 23.4 L 04/08/22 05:17: WBC 15.0 H, RBC 2.60 L, Hgb 7.3 L, Hct 22.8 L, MCV 87.7, MCH 28.1, MCHC 32.0, RDW Std Deviation 51.8 H, RDW Coeff of Singh 16.0 H, Plt Count 418, MPV 8.9, Immature Gran % (Auto) 1.100 H, Neut % (Auto) 85.0 H, Lymph % (Auto) 8.4 L, [place] % (Auto) 5.4, Eos % (Auto) 0.0, Baso % (Auto) 0.1, Absolute Neuts (auto) 12.8 H, Absolute Lymphs (auto) 1.26, Nucleated RBC % 0 04/08/22 05:17: Sodium 131 L, Potassium 4.2, Chloride 101, Carbon Dioxide 18.0 L, Anion Gap 12, BUN 61 H, Creatinine 5.12 H, Estim Creat Clear Calc 15.45, Est GFR (MDRD) Af Amer 15 L, Est GFR (MDRD) Non-Af 12 L, BUN/Creatinine Ratio 11.9, Glucose 123 H, Calcium 9.1, Total Bilirubin 0.30, AST 16, ALT 14 L, Alkaline Phosphatase 119 H, Total Protein 6.4, Albumin 1.7 L, Globulin 4.7 H, Albumin/Globulin Ratio 0.4 L 04/08/22 11:17: Urine Osmolality 342, U Random Total Protein 218.2 H, Urine Creatinine 91.50 Micro: Microbiology 04/07/22 10:24 Urine, Clean Catch Urine Culture - Preliminary Culture exhibits no growth. 04/07/22 14:10 Mucosa - Nasopharyngeal Respiratory Panel (PCR) - Final Charges/Coding Visit Charges Inpatient E&M: 59275 Init Hosp L2
[2022-04-09] VITALS (17 sets, daily range): BP systolic 127–149; BP diastolic 82–99; PULSE 92–119; RESP 16–20; TEMP 36.4–37; O2SAT 95–99; BMI 42.6; BMI 43.5
--- NOTE | 2022-04-09 05:55 | EKG12_ITS ---
Test Reason : AM EKG Blood Pressure : / mmHG Vent. Rate : 108 BPM Atrial Rate : 108 BPM P-R Int : 178 ms QRS Dur : 090 ms QT Int : 320 ms P-R-T Axes : 056 000 033 degrees QTc Int : 428 ms Sinus tachycardia Otherwise normal ECG When compared with ECG of 03-JAN-2004 07:49, No significant change was found Confirmed by RITU JENNINGS, MILTON ([id number]), purchase request editor KRISTAN HERNANDEZ ([id number]) on 04/11/2022 10:12:46 AM Referred By: Kaykay Marshall Confirmed By:MILTON CHANEY MD
[2022-04-09 06:45] LABS: Absolute Lymphocyte Count 2.12 X10^3/uL (0.83-4.51); Absolute Neutrophil Count 13.6 X10^3/uL (2.0-7.7); Basophil# 0.02 X10^3/uL; Basophil% 0.1 % (0-1); Hematocrit 22.9 % (40-54); Hemoglobin 7.3 g/dL (13.0-16.5); Lymphocyte # 2.12 X10^3/ul (0.83-4.51); Lymphocyte % 12.4 % (19-41); Mean Corp Hgb Conc 31.9 g/dL (32-36); Mean Corpuscular Hgb 27.4 pg (27.0-32.0); Mean Corpuscular Volume 86.1 fL (80-94); Mean Platelet Vol. 8.6 fl (6.2-12.0); Monocyte% 6.4 % (0-10); NRBC Flagged by Analyzer 0 % (0-5); Neutrophil # 13.56 X10^3/uL (2.7-7.7); Platelet Count 491 K/mm3 (150-450); RBC Distribution Width CV 15.9 % (11.6-14.6); RBC Distribution Width SD 50.2 fl (35.1-43.9); Red Blood Count 2.66 M/mm3 (4.6-6.2); White Blood Count 17.2 K/mm3 (4.4-11.0)
[2022-04-09 07:27] LABS: ALB/GLOB Ratio 0.4 RATIO (0.9-2.4); AST(SGOT) 24 U/L (15-37); Alanine Aminotransfer ALT/SGPT 22 U/L (16-61); Albumin, Serum 1.7 g/dL (3.2-5.0); Alkaline Phosphatase 99 U/L (45-117); Anion Gap 12 (5-15); BUN 76 mg/dL (7-18); Calcium,Total 8.6 mg/dL (8.5-10.1); Chloride 103 mmol/L (98-107); Creatinine, Serum 5.06 mg/dL (0.70-1.30); EST Glomerular Filtration Rate 12 mL/min (>60); Est Glom Filt Rate - Afr Amer 15 mL/min (>60); Estimated Creatinine Clearance 15.63 ml/min; Globulin 4.3 g/dL (2.2-4.2); Glucose 105 mg/dL (74-106); Potassium 3.7 mmol/L (3.5-5.1); Sodium Level 132 mmol/L (136-145)
[2022-04-09] MEDS: 0.9% Saline Lock 10 ML Syringe IV ×4 (08:17→17:36)
[2022-04-09] MEDS: oxyCODONE 5 MG Tablet PO ×2 (08:17→13:11)
[2022-04-09] MEDS: Acetaminophen 325 MG Tablet 650 MG PO ×2 (08:17→13:11)
--- NOTE | 2022-04-09 09:16 | VDUE_ITS ---
Reason For Study: swelling Right Proximal Left Proximal Right jugular vein is spontaneous, widely Left jugular vein is spontaneous, widely patent, phasic, with no intraluminal patent, phasic, with no intraluminal echogenicity noted. echogenicity noted. Right subclavian vein is spontaneous, widely Left subclavian vein is spontaneous, widely patent, phasic, with no intraluminal patent, phasic, with no intraluminal echogenicity noted. echogenicity noted. Right Lower Arm Left Arm Right radial vein is compressible. Left axillary vein is spontaneous, patent, Right ulnar vein is compressible. phasic, competent, compressible and Right Arm demonstrates augmentation. Right axillary vein is spontaneous, patent, Left brachial vein is compressible. phasic, competent, compressible and Left cephalic vein is compressible. demonstrates augmentation. Left basilic vein is compressible. Right brachial vein is compressible. Left Lower Arm Right cephalic vein is compressible. Left radial vein is compressible. Right basilic vein is compressible. Left ulnar vein is compressible. Prelim to the pt's RN. VL/Venous Duplex US - Ezra Extrem Interpretation Summary No evidence for acute deep vein thrombosis bilateral upper extremities with pat ent and compressible bilateral cephalic and basilic veins Ordering Physician: Grzegorz Ortiz Performed By: Jose Manuel Hamm RVT ?
[2022-04-09 09:52] LABS: Platelet Count 541 K/mm3 (150-450); RET-HE 27.1 pg (30-35); Reticulocyte Count 1.24 % (0.5-1.5)
[2022-04-09] MEDS: Lactated Ringers 1,000 ML 15 ML IV (10:15)
[2022-04-09 10:27] LABS: Ferritin 1759 ng/mL (26-388); Iron 49 ug/dL (65-175); Iron Binding Capacity,Total 154 ug/dL (250-450); PERCENT IRON SATURATION 31.8 % (15.0-55.0)
--- NOTE | 2022-04-09 10:33 | OP.EGD_ITS ---
Patient Name: Nicholas Mccallum Procedure Date: 04/09/2022 10:00 AM Date of : 1960 Age: 61 Procedure: Upper GI endoscopy Indications: Iron deficiency anemia Providers: Ralph Romero DO Referring MD: Kaykay Marshall Medicines: Monitored Anesthesia Care Patient Profile: This is a 61 year old male. Refer to note in patient chart for documentation of history and physical. Complications: No immediate complications. Procedure: Pre-Anesthesia Assessment: - Prior to the procedure, a History and Physical was performed, and patient medications and allergies were reviewed. The risks and benefits of the procedure and the sedation options and risks were discussed with the patient. All questions were answered and informed consent was obtained. Patient identification and proposed procedure were verified by the physician in the pre-procedure area. Mental Status Examination: alert and oriented. Airway Examination: normal oropharyngeal airway and neck mobility. Respiratory Examination: clear to auscultation. CV Examination: normal. Prophylactic Antibiotics: The patient does not require prophylactic antibiotics. Prior Anticoagulants: The patient has taken no previous anticoagulant or antiplatelet agents. After reviewing the risks and benefits, the patient was deemed in satisfactory condition to undergo the procedure. The anesthesia plan was to use moderate sedation / analgesia (conscious sedation). Immediately prior to administration of medications, the patient was re-assessed for adequacy to receive sedatives. The heart rate, respiratory rate, oxygen saturations, blood pressure, adequacy of pulmonary ventilation, and response to care were monitored throughout the procedure. The physical status of the patient was re-assessed after the procedure. After obtaining informed consent, the endoscope was passed under direct vision. Throughout the procedure, the patient's blood pressure, pulse, and oxygen saturations were monitored continuously. The gastroscope was introduced through the mouth, and advanced to the second part of duodenum. The upper GI endoscopy was accomplished without difficulty. The patient tolerated the procedure well. Scope In: 10:24:59 AM Scope Out: 10:27:30 AM Total Procedure Duration Time 0 hours 2 minutes 31 seconds Findings: The examined esophagus was normal. Localized mildly erythematous mucosa without bleeding was found in the prepyloric region of the stomach. Localized mildly erythematous mucosa without active bleeding and with no stigmata of bleeding was found in the duodenal bulb. Impression: - Normal esophagus. - Erythematous mucosa in the prepyloric region of the stomach. - Erythematous duodenopathy. - No specimens collected. Recommendation: - Return patient to hospital [facility] for ongoing care. - Resume previous diet. - Continue present medications. Procedure Code(s): --- Professional --- 88365, Esophagogastroduodenoscopy, flexible, transoral; diagnostic, including collection of specimen(s) by brushing or washing, when performed (separate procedure) CPT copyright 2017 [employer]. All rights reserved. The codes documented in this report are preliminary and upon loan processor review may be revised to meet current compliance requirements. Ralph Romero DO 04/09/2022 10:33:01 AM This report has been signed electronically. Number of Addenda: 1 Note Initiated On: 04/09/2022 10:00 AM Addendum Number: 1 Addendum Date: 06/14/2022 6:02:52 AM MAC was used as sedation for this procedure. Ralph Romero DO 06/14/2022 6:03:00 AM This report has been signed electronically.
--- NOTE | 2022-04-09 10:35 | OP.CCLET_ITS ---
06/14/2022 Basil Romero [address] [place] [address] Re : Upper GI endoscopy procedure for Nicholas Mccallum Dear Dr. Romero This procedure was performed on Saturday, April 09, 2022. My impressions and recommendations are as follows: Impressions : - Normal esophagus. - Erythematous mucosa in the prepyloric region of the stomach. - Erythematous duodenopathy. - No specimens collected. Recommendations : - Return patient to hospital [facility] for ongoing care. - Resume previous diet. - Continue present medications. My findings are described in the full procedure note, which is enclosed. If I can be of further assistance, please feel free to contact me at . Sincerely, Ralph Romero, 04/09/2022 10:33:01 AM This report has been signed electronically.
[2022-04-09] MEDS: Allopurinol 100 MG Tablet PO ×2 (12:12→17:29)
[2022-04-09] MEDS: predniSONE 20 MG Tablet 40 MG PO (12:12)
--- NOTE | 2022-04-09 13:19 | PN.HOSP_ITS ---
Subjective Subjective Follow-up for multiple acute issues including acute anemia, acute kidney failure on CKD, musculoskeletal pain. Patient went for EGD the morning. Shortness of breath mild better. Patient complain of pain in lower legs and forearms. Knee and ankle joint pain. No chest pain Objective Data Objective Data Vital Signs: Vital Signs Temp Pulse Resp BP Pulse Ox O2 Del Method O2 Flow Rate 97.6 F L 112 H 18 129/83 H 96 Room Air 2 04/09/22 11:04/09/22 11:04/09/22 11:04/09/22 11:04/09/22 11:04/09/22 11:04/09/22 10:50 Oxygen Flow Rate (L/min) 2 Oxygen Delivery Method Room Air Weight: 303 lb 5.697 oz Body Mass Index (BMI) 43.5 Intake & Output: Intake and Output for Last 24 Hours 04/07/22 04/08/22 04/09/22 23:59 23:59 23:59 Intake Total 2326.25 / 2326.25 1586.75 / 1586.75 880 / 880 Output Total 1750 / 1750 1750 / 1750 Balance 2326.25 / 2326.25 -163.25 / -163.25 -870 / -870 Lab / Micro Data Result Diagrams: 04/09/22 06:33 04/09/22 06:33 Labs: Laboratory Results - last 24 hr 04/09/22 06:33: WBC 17.2 H, RBC 2.66 L, Hgb 7.3 L, Hct 22.9 L, MCV 86.1, MCH 27.4, MCHC 31.9 L, RDW Std Deviation 50.2 H, RDW Coeff of Singh 15.9 H, Plt Count 491 H, MPV 8.6, Immature Gran % (Auto) 2.100 H, Neut % (Auto) 79.0 H, Lymph % (Auto) 12.4 L, [place] % (Auto) 6.4, Eos % (Auto) 0.0, Baso % (Auto) 0.1, Absolute Neuts (auto) 13.6 H, Absolute Lymphs (auto) 2.12, Nucleated RBC % 0 04/09/22 06:33: Sodium 132 L, Potassium 3.7, Chloride 103, Carbon Dioxide 17.0 L , Anion Gap 12, BUN 76 H, Creatinine 5.06 H, Estim Creat Clear Calc 15.63, Est GFR (MDRD) Af Amer 15 L, Est GFR (MDRD) Non-Af 12 L, BUN/Creatinine Ratio 15.0, Glucose 105, Calcium 8.6, Total Bilirubin 0.30, AST 24, ALT 22, Alkaline Phosphatase 99, Total Protein 6.0 L, Albumin 1.7 L, Globulin 4.3 H, Albumin/Globulin Ratio 0.4 L 04/09/22 06:33: Retic Count 1.24, Immature Retic Fraction 34.70 H, Retic Hgb Equivalent 27.1 L 04/09/22 06:33: Iron 49 L, TIBC 154 L, Iron Saturation 31.8, Ferritin 1759 H Micro: Microbiology 04/07/22 10:24 Urine, Clean Catch Urine Culture - Final Culture exhibits no growth. 04/07/22 14:00 Blood Culture (Wb) - Right Hand Blood Culture - Preliminary No growth in 48 hours. 04/07/22 13:50 Blood Culture (Wb) - Right Forearm Blood Culture - Preliminar y No growth in 48 hours. 04/09/22 03:45 Stool Stool Occult Blood (JOVAN) - Final 04/07/22 14:10 Mucosa - Nasopharyngeal Respiratory Panel (PCR) - Final Radiography Diagnostic Testing: Radiology Impression Venous Doppler Study 04/07/22 15:55 Interpretation Summary Deep veins of the right upper extremity are patent and compressible segmentally. There is no evidence of deep vein thrombosis. The superficial veins of the right upper extremity, the basilic and cephalic veins, are patent and compressible. There is no evidence of right upper extremity superficial thrombophlebitis involving the veins imaged. Ordering Physician: Ernesto Cain Referring Physician: Kaykay Marshall Performed By: Hanane Peters, RDCS, RVT ? Physical Exam Narrative mild improvement in shortness of breath. Upper extremities are still swollen. Venous duplex upper extremity ordered. Urine output class, Warren catheter. UOP: 1750 ml Physical exam General: Alert, Oriented x3, Cooperative, morbid obesity BMI 42.4 kg/m?. HEENT: Atraumatic, PERRLA, EOMI, Normocephalic Oral: Deep oropharyngeal structures not clearly visualized. No obvious ulcer Mucosal Lesions/ Ulcerations Neck: Supple, No JVD, Negative Carotid Bruits Lungs: Air entry diminished in bilateral lung bases. No crepitation/rhonchi Cardiovascular: Sinus tachycardia, Normal S1, Normal S2, No murmurs Abdomen: Abdominal binder present. History of incisional hernia repair. Bowel Sounds Present, Soft, Non Tender, flat abdomen : Recent decrease in urine output in last 2 days. No renal angle tenderness. No suprapubic tenderness. Extremities: Bilateral lower extremity pitting edema, Capillary Refill Less than 3 Seconds Skin: White chalky nodules over medial aspect of right third finger, right great toe. Musculoskeletal: Tenderness over hand, forearms, both elbow joints, right ankle and right great toe. Forearms are softer. Status post right hip replacement, surgical scar well-healed Neurological: Cranial nerves II-XII grossly intact, DTR 2+/4 and Symmetrical, Neuro grossly intact Psych/Mental Status: flat affect Assessment & Plan Assessment/Plan (1) MAXI (acute kidney injury): PLAN: This is a 61-year-old patient woman admitted directly from ED for multiple acute issues including shortness of breath, dyspnea on mild exertion, low-grade fever, generalized weakness and swelling, severe anemia and acute kidney injury on CKD: 1. Acute normocytic normochromic anemia with history of chronic anemia: In ED, hemoglobin 7.2, MCV 84, platelet 560,000. Patient has mild hematuria. Stool for occult blood negative. Patient had 1 unit of PRBC transfusion in [place] ED. labs CBC CMP are ordered. GI is consulted. No prior history of GI bleed, PUD or chronic GI condition. Protonix 40 mg IV twice daily. 04/08: Hemoglobin is stable between 7 to 8 g%. No acute external bleeding. Discussed with the GI. No acute indication for transfusion until hemoglobin drops less than 7 04/09: Hemoglobin 7.3. Iron profile suggestive of anemia of chronic disease/chronic kidney disease. Immature reticulocyte fraction high. Patient given IV iron. Underwent EGD which shows erythematous mucosa and duodenopathy. Continue PPI. 2. Acute kidney injury on CKD stage III, unclear type: Suspected mostly due to diuretic furosemide, anemia or related to recent surgery. Admission BUN/creatinine 50/4.7, prior baseline about 1.8-2.3. IV fluid, hold nephrotoxic medications. Renal and bladder ultrasound. Urine random sodium 30. Kidney and bladder ultrasound done reported normal size of kidneys. Distended neobladder 168 mL. Normal wall thickness. No mass. Kidney and bladder ultrasound done reported normal size of kidneys. Distended neobladder 168 mL. Normal wall thickness. No mass. Screw Remover is consulted 04/08: Discussed with the medical engineer. Suspicion of RPGN. Urine for protein, creatinine and osmolality ordered. Warren cath patient ordered. SPEP and immunofixation pending. Urine random protein 218 mg, protein creatinine ratio 2.4 g. UA done in ED, WBC 11-15, mild hematuria. Repeat UA ordered. Discussed with the medical engineer. Possible RPGN, plan for kidney biopsy on Sunday. 04/09: No significant decrease in creatinine. Bicarb is low, 17. Started on sodium bicarbonate tablet. 3. Dyspnea on exertion, generalized leg swelling edema on furosemide, suspicion of heart failure: 2D echo is ordered. venous duplex of lower extremity negative for DVT. Patient has sinus tachycardia. VQ scan ordered. Modified Wells criteria for PE calculated, 3.0 moderate risk 2. BNP 179 04/08: VQ scan reported normal. Venous duplex upper extremities ordered. 04/09: Venous duplex of right upper extremity reported normal with no evidence of DVT or superficial thrombophlebitis of basilic vein or cephalin veins. Echo pending 4. Low-grade fever unclear etiology possible gout exacerbation: Patient does not have clear-cut focus of infection. UA shows WBC 11-15, 1+ urine bacteria nitrite negative, LE 25. As per , his fever is less than 100 Fahrenheit at home. Patient has history of gout. Started on Solu-Medrol 40 mg 1 dose and then prednisone 40 mg daily from tomorrow and low-dose allopurinol 100 mg daily. Patient has leukocytosis 12.7 thousand with left shift but may be from inflammatory reason. Chest x-ray right basilar atelectasis with no acute cardiopulmonary findings. CT with right hip showed no evidence of fluid collections, abscess or seroma. Mild right hip stranding. Patient had IV Rocephin 2 g empirically from ED physician. Repeat chest x-ray. Continue empiric ceftriaxone 2 g daily. Patient is vaccinated boosted with COVID-19. 04/08: Uric acid is high. Phosphorus 5.9. Allopurinol dose increased 100 mg twice daily. 04/09) dose increased to 100 mg 3 times daily 5. Hypertension: Blood pressure in normal range. 6. Recent right hip replacement: PT and OT ordered. 7. Morbid obesity: BMI 42.4 kg/m?. Loading Supervisor consult. Weight loss counseling done. 8. VTE prophylaxis: Pharmacological pulse contraindicated in view of acute anemia. Bilateral SCDs discontinue if platelet count drops less than 50,000 or hemoglobin less than 8 g% Total time of the visit including total time spent in counseling or coordination of care, (more than 50% of the total time, spent in obtaining medical in formation from nurses and other ancillary care providers,explaining to the patient about labs, imaging, diagnosis and management), discussion with consultants medical engineer and talent acquisition coordinator, review of labs and imaging is 45 minutes. Living will/advanced directive/end of life care: Patient does have living will or advanced directive. His is power of estate attorney for health. After discus bishop of benefits/risks procedures involved with full code, DNR CC arrest and DNR CC, the patient opted for full code. Patient and his do want artificial life support including intubation, tube feed, ventilator and/chest compression, central venous catheter, vasopressor and DC shock if needed Charges/Coding Visit Charges Inpatient E&M: 34598 [facility] L3
[2022-04-09 15:16] LABS: Mucous, Urine 0 SEEN /hpf (<or=2+)
[2022-04-09 15:18] LABS: Color, Urine Yellow (Yellow); Glucose, Dipstick Normal (Normal); Ketone-Dipstick Negative (Negative); Leukocyte Esterase-Dipstick 25 /ul (Negative); Nitrite-Dipstick Negative (Negative); Occult Blood-Urine 250 /ul (Negative); Protein-Dipstick 100 mg/dl (Negative); Specific Gravity, Urine 1.015 (1.002-1.030); Urine Bilirubin Dipstick Negative (Negative); Urine Clarity Cloudy (Clear); Urine Urobilinogen Normal (Normal)
[2022-04-09 15:42] LABS: Bacteria 2+ /hpf (None Seen); Coarse Granular Cast 10-25 SEEN /lpf (0-5 /lpf); Red Blood Cells-Urine 50-100 SEEN /hpf (0-5); Squamous Epithelial Cells - UA 0-5 SEEN /hpf (0-5); White Blood Cells 25-50 SEEN /hpf (0-5)
[2022-04-09] MEDS: Sodium Bicarbonate 650 MG Tablet PO ×3 (15:42→21:26)
[2022-04-09] MEDS: HYDROmorphone 1 MG/ML Syringe IV (17:28)
[2022-04-09] MEDS: Ondansetron 4 MG/2 ML Vial IV (17:36)
--- NOTE | 2022-04-09 17:40 | PN.RENAL_ITS ---
Subjective Subjective chart reviewed -no improvement in renal function -non oliguric -plan would to proceed with renal biopsy for definitive diagnosis -subnephrotic range proteinuria, GN workup still pending -supportive care, and possible need of CRYSTAL REPORT DEVELOPER early next week -will follow please call [phone] with any concerns Objective Data Objective Data Vital Signs: Vital Signs Temp Pulse Resp BP Pulse Ox O2 Del Method O2 Flow Rate 98.0 F 112 H 18 138/84 H 96 Room Air 2 04/09/22 17:25 04/09/22 17:25 04/09/22 17:25 04/09/22 17:25 04/09/22 17:25 04/09/22 17:25 04/09/22 10:50 Oxygen Flow Rate (L/min) 2 Oxygen Delivery Method Room Air Weight: 137.6 kg Body Mass Index (BMI) 43.5 Intake & Output: Intake and Output for Last 24 Hours 04/07/22 04/08/22 04/09/22 23:59 23:59 23:59 Intake Total 2326.25 / 2326.25 1586.75 / 1586.75 1150 / 1150 Output Total 1750 / 1750 1750 / 1750 Balance 2326.25 / 2326.25 -163.25 / -163.25 -600 / -600 Lab / Micro Data Result Diagrams: 04/09/22 06:33 04/09/22 06:33 Labs: Laboratory Results - last 24 hr 04/08/22 11:17: Urine Color Yellow, Urine Clarity Cloudy, Urine pH 5.0, Ur Specific [place] 1.015, Urine Protein 100 H, Urine Glucose (UA) Normal, Urine Ketones Negative, Urine Occult Blood 250 H, Urine Nitrite Negative, Urine Bilirubin Negative, Urine Urobilinogen Normal, Ur Leukocyte Esterase 25 H, Urine RBC 50-100 SEEN, Urine WBC 25-50 SEEN, Ur Squamous Epith Cells 0-5 SEEN, Urine Bacteria 2+, Coarse Granular Casts 10-25 SEEN, Urine Mucus 0 SEEN 04/09/22 06:33: WBC 17.2 H, RBC 2.66 L, Hgb 7.3 L, Hct 22.9 L, MCV 86.1, MCH 27.4, MCHC 31.9 L, RDW Std Deviation 50.2 H, RDW Coeff of Singh 15.9 H, Plt Count 491 H, MPV 8.6, Immature Gran % (Auto) 2.100 H, Neut % (Auto) 79.0 H, Lymph % (Auto) 12.4 L, [place] % (Auto) 6.4, Eos % (Auto) 0.0, Baso % (Auto) 0.1, Absolute Neuts (auto) 13.6 H, Absolute Lymphs (auto) 2.12, Nucleated RBC % 0 04/09/22 06:33: Sodium 132 L, Potassium 3.7, Chloride 103, Carbon Dioxide 17.0 L , Anion Gap 12, BUN 76 H, Creatinine 5.06 H, Estim Creat Clear Calc 15.63, Est GFR (MDRD) Af Amer 15 L, Est GFR (MDRD) Non-Af 12 L, BUN/Creatinine Ratio 15.0, Glucose 105, Calcium 8.6, Total Bilirubin 0.30, AST 24, ALT 22, Alkaline Phosphatase 99, Total Protein 6.0 L, Albumin 1.7 L, Globulin 4.3 H, Albumin/Globulin Ratio 0.4 L 04/09/22 06:33: Retic Count 1.24, Immature Retic Fraction 34.70 H, Retic Hgb Equivalent 27.1 L 04/09/22 06:33: Iron 49 L, TIBC 154 L, Iron Saturation 31.8, Ferritin 1759 H Micro: Microbiology 04/07/22 10:24 Urine, Clean Catch Urine Culture - Final Culture exhibits no growth. 04/07/22 14:00 Blood Culture (Wb) - Right Hand Blood Culture - Preliminary No growth in 48 hours. 04/07/22 13:50 Blood Culture (Wb) - Right Forearm Blood Culture - Preliminary No growth in 48 hours. 04/09/22 03:45 Stool Stool Occult Blood (JOVAN) - Final 04/07/22 14:10 Mucosa - Nasopharyngeal Respiratory Panel (PCR) - Final
[2022-04-10] VITALS (18 sets, daily range): BP systolic 129–161; BP diastolic 84–107; PULSE 88–124; RESP 16–27; TEMP 36.4–37.2; O2SAT 96–100
[2022-04-10 06:25] LABS: Absolute Lymphocyte Count 1.79 X10^3/uL (0.83-4.51); Absolute Neutrophil Count 11.3 X10^3/uL (2.0-7.7); Basophil# 0.02 X10^3/uL; Basophil% 0.1 % (0-1); Hematocrit 22.7 % (40-54); Hemoglobin 7.1 g/dL (13.0-16.5); Lymphocyte # 1.79 X10^3/ul (0.83-4.51); Lymphocyte % 12.5 % (19-41); Mean Corp Hgb Conc 31.3 g/dL (32-36); Mean Corpuscular Hgb 27.2 pg (27.0-32.0); Mean Platelet Vol. 8.9 fl (6.2-12.0); Monocyte# 0.87 X10^3/uL; Monocyte% 6.1 % (0-10); NRBC Flagged by Analyzer 0 % (0-5); Neutrophil # 11.28 X10^3/uL (2.7-7.7); Neutrophil % 78.5 % (47-70); Platelet Count 520 K/mm3 (150-450); RBC Distribution Width CV 16.1 % (11.6-14.6); RBC Distribution Width SD 51.1 fl (35.1-43.9); Red Blood Count 2.61 M/mm3 (4.6-6.2); White Blood Count 14.4 K/mm3 (4.4-11.0)
[2022-04-10 06:52] LABS: ALB/GLOB Ratio 0.4 RATIO (0.9-2.4); AST(SGOT) 32 U/L (15-37); Alanine Aminotransfer ALT/SGPT 35 U/L (16-61); Albumin, Serum 1.7 g/dL (3.2-5.0); Alkaline Phosphatase 135 U/L (45-117); Anion Gap 12 (5-15); BUN 76 mg/dL (7-18); BUN/Creat Ratio 16.6 RATIO (10-20); Calcium,Total 8.9 mg/dL (8.5-10.1); Chloride 103 mmol/L (98-107); Creatinine, Serum 4.59 mg/dL (0.70-1.30); EST Glomerular Filtration Rate 14 mL/min (>60); Est Glom Filt Rate - Afr Amer 17 mL/min (>60); Estimated Creatinine Clearance 17.23 ml/min; Globulin 4.3 g/dL (2.2-4.2); Glucose 90 mg/dL (74-106); Potassium 3.9 mmol/L (3.5-5.1); Sodium Level 135 mmol/L (136-145)
--- NOTE | 2022-04-10 07:45 | CT_ITS ---
PROCEDURE: ULTRASOUND GUIDED RANDOM RENAL BIOPSY. CLINICAL HISTORY: Male, 61 years old presenting with acute renal injury. MAXI -- ORDER CHANGED FROM U/S PER RADIOLOGIST PREFERENCE requested CONSENT: Time-Out Called: Yes Consent form signed: YES PT-PTT Levels Checked: Yes PROCEDURE: CT-guided percutaneous right renal biopsy. CONSENT: Informed, written consent was obtained from the patient, prior to procedure and following discussion of risks, benefits, alternatives and personnel. Patient oriented dose modulation technique utilized. SEDATION: VERSED 2 mg and FENTANYL 100 mcg intravenous. PERFORMING PHYSICIAN: Rogelio Lowery MD The procedure, risks, alternatives and complications were explained to the patient and written informed consent was obtained. Patient was positioned supine on the CT table. A timeout procedure was obtained. Limited axial CT images of the abdomen were obtained and demonstrated bilateral kidneys, the decision was made to biopsy the lower pole of the right kidney.. An access site was marked on the patient''s skin overlying the posterolateral aspect of the lower pole of the right kidney after which the overlying skin was prepared in standard, sterile fashion. The skin was anesthetized with lidocaine and a small skin incision was made. Under CT fluoroscopic guidance a 17-gauge coaxial introducer needle was intermittently advanced into the lower pole of the right kidney. An 18 gauge coaxial core biopsy needle was then inserted through the needle and 5 core biopsy specimens were obtained and sent to lab for analysis. Bleeding ensued after the last biopsy. Gelfoam embolization of the biopsy site and access tract was then performed after which the access needle was removed and sterile dressing was applied. Follow-up imaging demonstrated no significant progression of the perirenal hematoma, prominent increased attenuation in the perirenal space and the posterior aspect of the right kidney consistent to the Gelfoam. Follow-up hemoglobin and hematocrit levels will be obtained. The patient tolerated the procedure well with no immediate complications and was transferred to recovery in stable condition. CT/Biopsy/Inj or Needle Placement IMPRESSION: Technically successful random percutaneous CT biopsy of the lower pole of the right kidney, five 18-gauge core biopsy specimens obtained and sent to lab for analysis. Electronically Signed: Rogelio Lowery MD at 13:48 EDT Reading Location ID and State: [facility] / [place] Tel , Service support ,
[2022-04-10] MEDS: 0.9% Saline Lock 10 ML Syringe IV (07:56)
[2022-04-10] MEDS: HYDROmorphone 0.5 MG/0.5 ML SYRINGE IV (07:56)
[2022-04-10] MEDS: predniSONE 20 MG Tablet 40 MG PO (07:57)
[2022-04-10] MEDS: Allopurinol 100 MG Tablet PO ×3 (07:57→17:10)
[2022-04-10] MEDS: Sodium Bicarbonate 650 MG Tablet PO ×4 (07:57→20:35)
[2022-04-10] MEDS: Ondansetron 4 MG/2 ML Vial IV (08:02)
[2022-04-10 09:07] LABS: International Normalized Ratio 1.3; Prothrombin Time (Protime)PT. 15.9 SECONDS (11.7-14.9)
[2022-04-10 09:08] LABS: Partial Thromboplast Time 38.2 Seconds (24.1-36.2)
[2022-04-10] MEDS: fentaNYL 100 MCG/2 ML Ampul IV ×2 (10:55→11:10)
[2022-04-10] MEDS: Midazolam 2 MG/2 ML Syringe IV ×2 (10:55→11:10)
[2022-04-10] MEDS: Lidocaine 2% (10 ml mdv) 10 ML Vial 8 ML INFILT (11:10)
--- NOTE | 2022-04-10 11:30 | KID_PTH ---
PATIENT: GAMA AGUILERA LOC: [facility] U#:[id number] AGE/SX: 61/M ROOM: [facility] RE04/07/[address]: Dr. Grzegorz Ortiz MD : 1960 BED: 1 DIS: 04/13/2022 SPEC #: [id number] RECD: 04/10/22 12:09 STATUS: ED REChelo #: [id number] NATALIE: 04/10/22 11:[address]: Ernesto Cain DEPT: SURGICAL PATHOLOGY RECD BY: Yocasta Thompson ENTERED: 04/10/22 12:20 SP TYPE: KIDNEY OTHR DR: MD Dr. Sergio Newby MD Dr. Prakash Chand, MD Dr. Vinh Nguyen, MD Dr. Yasser Omran, MD Tissues: Kidney, NOS Procedures: Electron Microscopy (ACH) Fluorescent Antibody (ACH) Sp St Grp II Kidney (ACH) Kidney Biopsy (ACH) Fluorescent antibody (ACH) add'l Comments: @ Ordering doctor for ADELAIDE edited from to @ by JESSICA at 04/11/2215 @ Submitting doctor edited from to @ by JESSICA at 04/11/22 0915 HEADER OPERATION: CT-guided left kidney biopsy PRE-OP DIAGNOSIS: Acute kidney injury TISSUE SUBMITTED: Kidney 18-gauge core x5 MICROSCOPIC DIAGNOSIS Left kidney, CT-guided biopsies: Focal increased mesangium with granular IgA and C3 immunofluorescence and paramesangial deposits. Mild interstitial fibrosis. Thickened arterioles. See comment. COMMENT Correlate clinically with history and onset of symptoms. Correlate with any serologies. The findings of IgA ad C3 mesangial immunofluorescence with paramesangial deposits are supportive of IgA nephropathy. Winn classification scaring is essentially zero and shows no evidence of significant endocapillary proliferation, segmental scarring or crescent formation. Mesangial expansion is in less than 50% of glomeruli. Interstitial fibrosis is less than 25%. CLINICAL INFORMATION: CT-guided left kidney biopsy. Acute kidney injury. 61-year-old with underlying hypertension, admitted due to myalgia and low-grade fever. Serum creatinine up to 4.6. Gross hematuria. Venous stasis, morbid obesity, chronic anemia, chronic kidney disease stage III. 1.8 cm left renal cyst. MICROSCOPIC DESCRIPTION Light microscopy examined with H&E, PAS, Miles silver and trichrome stains yields renal cortex with 20 glomeruli. The majority of the glomeruli show open capillary loops. There is focal mesangial expansion. There is no evidence of significant global glomerulosclerosis. No evidence of significant segmental scarring or crescent formation. The interstitium shows mild patchy lymphocytic infiltrate. The trichrome stain shows approximately 15% cortical fibrosis. There is focal associated tubule atrophy. The tubules show mild injury. Examination of the vessels/arterioles shows intimal layer thickening. There is no evidence of vasculitis. Congo red stain shows no evidence of amyloid deposition or accumulation. There is focal renal capsule. Special stain positive controls are reviewed and deemed adequate. Slides reviewed with Dr. Benedict who concurs. IMMUNOFLUORESCENCE: Tissue frozen and submitted for immunofluorescence evaluation yields 5 glomeruli. IgA and C3 show 2+ granular glomerular mesangial signal. There is background glomerular and cortex signal with IgG and albumin. Landen, lambda, IgM, C1q. and fibrin are negative. Positive and negative immunofluorescence controls are reviewed and deemed adequate. ELECTRON MICROSCOPY: Toluidine blue semithin sections yields three open glomeruli. Ultrastructure examination shows scattered paramesangial and mesangial deposits. There is mild associated mesangial matrix expansion. The podocyte foot processes show hypertrophic and microvillous changes. The glomerular basement membrane shows areas of variable thickening and convolution all changes. Tubules show mild degenerative change. GROSS DESCRIPTION The specimen is sent entirely to [facility] for diagnosis. Received in polytransport medium in a conical tube labeled with the patient?s name, medical record number and designation ?CT-guided left kidney biopsy? are four cores of ludwig renal tissue measuring from 1.1 cm in length up to 1.8 cm in length; each approximately 0.1 cm in width. Glomeruli are seen under the dissecting microscope. The specimen is divided for electron microscopy, immunofluorescence and light microscopy.
[2022-04-10 12:40] LABS: Hematocrit 23.6 % (40-54); Hemoglobin 7.4 g/dL (13.0-16.5)
[2022-04-10 14:12] LABS: ANTINUCLEAR ANTIBODIES DIRECT Negative (Negative)
[2022-04-10 15:03] LABS: Hematocrit 25.6 % (40-54); Hemoglobin 8.1 g/dL (13.0-16.5)
[2022-04-10] MEDS: oxyCODONE 5 MG Tablet PO (15:15)
[2022-04-11] VITALS (10 sets, daily range): BP systolic 130–150; BP diastolic 63–97; PULSE 89–123; RESP 16–18; TEMP 36.4–37.2; O2SAT 96–98
[2022-04-11] MEDS: HYDROmorphone 0.5 MG/0.5 ML SYRINGE IV ×4 (01:27→22:08)
[2022-04-11] MEDS: oxyCODONE 5 MG Tablet PO ×4 (03:26→23:54)
[2022-04-11] MEDS: Acetaminophen 325 MG Tablet 650 MG PO ×3 (04:42→15:49)
[2022-04-11 06:28] LABS: Hematocrit 22.7 % (40-54); Hemoglobin 7.3 g/dL (13.0-16.5); Mean Corp Hgb Conc 32.2 g/dL (32-36); Mean Corpuscular Hgb 27.5 pg (27.0-32.0); Mean Corpuscular Volume 85.7 fL (80-94); Mean Platelet Vol. 8.5 fl (6.2-12.0); POSITIVE COUNT YES; POSITIVE MORPHOLOGY YES; Platelet Count 496 K/mm3 (150-450); RBC Distribution Width CV 16.2 % (11.6-14.6); RBC Distribution Width SD 50.7 fl (35.1-43.9); Red Blood Count 2.65 M/mm3 (4.6-6.2); White Blood Count 15.6 K/mm3 (4.4-11.0)
[2022-04-11 06:39] LABS: Differential Indicated MANUAL DIFF
[2022-04-11 06:46] LABS: Lymphocyte 13 % (19-41); Monocyte 5 % (0-10); Myelocyte 2 % (0-0); Neutrophil-Segmented 80 % (47-70); Platelet Estimate ADEQUATE (ADEQ); Total Cells Counted 100 (MANUAL DIFF)
[2022-04-11 06:47] LABS: Absolute Lymphocyte Count 2.03 X10^3/uL (0.83-4.51); Absolute Neutrophil Count 12.5 X10^3/uL (2.0-7.7); Hypochromasia 1+; Lymphocyte # 2.03 X10^3/ul (0.83-4.51)
[2022-04-11 07:02] LABS: Albumin, Serum 1.7 g/dL (3.2-5.0); BUN 72 mg/dL (7-18); BUN/Creat Ratio 18.3 RATIO (10-20); Calcium,Total 8.7 mg/dL (8.5-10.1); Chloride 102 mmol/L (98-107); Creatinine, Serum 3.94 mg/dL (0.70-1.30); EST Glomerular Filtration Rate 17 mL/min (>60); Est Glom Filt Rate - Afr Amer 20 mL/min (>60); Estimated Creatinine Clearance 20.07 ml/min; Glucose 102 mg/dL (74-106); Phosphorus 4.8 mg/dL (2.5-4.9); Potassium 3.4 mmol/L (3.5-5.1); Sodium Level 134 mmol/L (136-145)
[2022-04-11] MEDS: Sodium Bicarbonate 650 MG Tablet PO ×3 (08:27→22:08)
[2022-04-11] MEDS: predniSONE 20 MG Tablet 40 MG PO (08:27)
[2022-04-11] MEDS: Allopurinol 100 MG Tablet PO ×4 (08:27→18:04)
[2022-04-11] MEDS: 0.9% Saline Lock 10 ML Syringe IV ×2 (08:28→22:09)
--- NOTE | 2022-04-11 10:31 | PCM.PN.REN ---
Subjective Subjective Following for MAXI Patient is resting in bed, at bedside. No overnight events. Denies any complaints. States he was thirsty yesterday and drank around 5 pitchers of water and ice. No nausea, vomiting or diarrhea. States has okay appetite. Objective Data Objective Data Vital Signs: Vital Signs Temp Pulse Resp BP Pulse Ox O2 Del Method O2 Flow Rate 98.3 F 123 H 18 130/63 H 96 Room Air 2 04/11/22 09:10 04/11/22 09:10 04/11/22 09:10 04/11/22 09:10 04/11/22 09:10 04/11/22 09:10 04/09/22 10:50 Oxygen Flow Rate (L/min) 2 Oxygen Delivery Method [1150] Room Air Oxygen Delivery Method [1145] Room Air Oxygen Delivery Method [10] Room Air Oxygen Delivery Method [9] Room Air Oxygen Delivery Method [8] Room Air Oxygen Delivery Method [7] Room Air Oxygen Delivery Method [6] Room Air Oxygen Delivery Method [5] Room Air Oxygen Delivery Method [4] Room Air Oxygen Delivery Method [3] Room Air Oxygen Delivery Method [2] Room Air Oxygen Delivery Method [1 ( Room Air Initial Baseline)] Oxygen Delivery Method Room Air Weight: 136.9 kg Body Mass Index (BMI) 43.5 Intake & Output: Intake and Output for Last 24 Hours 04/09/22 04/10/22 04/11/22 23:59 23:59 23:59 Intake Total 1620 / 1680 980 / 980 160 / 160 Output Total 2300 / 3400 4025 / 4025 600 / 600 Balance -680 / -1720 -3045 / -3045 -440 / -440 Lab / Micro Data Result Diagrams: 04/11/22 06:10 04/11/22 06:10 Labs: Laboratory Results - last 24 hr 04/08/22 05:17: EARLE Screen Negative, GOLDEN-1 Antibody Not Reportable, SS-A/Ro IgG Antibody Not Reportable, SS-B/La IgG Antibody Not Reportable, Sm (Salvador) Antibody Not Reportable, PRESSURE TESTER OPERATOR Antibody Not Reportable, Scl-70 Scleroderma Ab Not Reportable, Double Strand DNA Ab Not Reportable, Centromere B Antibody Not Reportable 04/10/22 12:30: Hgb 7.4 L, Hct 23.6 L 04/10/22 14:51: Hgb 8.1 L, Hct 25.6 L 04/11/22 06:10: WBC 15.6 H, RBC 2.65 L, Hgb 7.3 L, Hct 22.7 L, MCV 85.7, MCH 27.5, MCHC 32.2, RDW Std Deviation 50.7 H, RDW Coeff of Singh 16.2 H, Plt Count 496 H, MPV 8.5, Neut % (Auto) Not Reportable, Absolute Neuts (auto) 12.5 H, Absolute Lymphs (auto) 2.03, Total Counted 100, Neutrophils % (Manual) 80 H, Lymphocytes % (Manual) 13 L, Monocytes % (Manual) 5, Myelocytes % 2 H, Diff Path Review January, Platelet Estimate ADEQUATE, Hypochromasia 1+ 04/11/22 06:10: Sodium 134 L, Potassium 3.4 L, Chloride 102, Carbon Dioxide 19.0 L, BUN 72 H, Creatinine 3.94 H, Estim Creat Clear Calc 20.07, Est GFR (MDRD) Af Amer 20 L, Est GFR (MDRD) Non-Af 17 L, BUN/Creatinine Ratio 18.3, Glucose 102, Calcium 8.7, Phosphorus 4.8, Albumin 1.7 L Micro: Microbiology 04/07/22 10:24 Urine, Clean Catch Urine Culture - Final Culture exhibits no growth. 04/07/22 14:00 Blood Culture (Wb) - Right Hand Blood Culture - Preliminary No growth in 48 hours. 04/07/22 13:50 Blood Culture (Wb) - Right Forearm Blood Culture - Preliminary No growth in 48 hours. 04/09/22 03:45 Stool Stool Occult Blood (JOVAN) - Final 04/07/22 14:10 Mucosa - Nasopharyngeal Respiratory Panel (PCR) - Final Radiography Diagnostic Testing: Radiology Impression Echocardiogram 04/08/22 14:25 Interpretation Summary Normal LV size. Left ventricular systolic function is normal. The estimated ejection fraction is 60 %. Contrast injection was performed. The study was technically limited. The study was technically difficult. Ordering Physician: Grzegorz Ortiz Referring Physician: Kaykay Marshall Performed By: Liya Whitley RCS Biopsy CT 04/10/22 07:45 IMPRESSION: Technically successful random percutaneous CT biopsy of the lower pole of the right kidney, five 18-gauge core biopsy specimens obtained and sent to lab for analysis. Electronically Signed: Rogelio Lowery MD at 13:48 EDT , Physical Exam Narrative Alert and oriented x3, no apparent distress S1-S2 regular Breath sounds clear anteriorly and posteriorly. No wheezes, rhonchi or rales noted Abdomen distended, soft, positive bowel sounds Edema noted bilateral lower legs and feet. Trace edema noted bilateral hands Coffey catheter present with clear yellow urine Assessment & Plan Assessment/Plan (1) MAXI (acute kidney injury): (2) Acute anemia: (3) FUO (fever of unknown origin): (4) Acidosis: (5) Hyponatremia: PLAN: Plan Assessment Very pleasant 61-year-old gentleman underlying history of hypertension with multiple hernia surgeries admitted to the hospital due to myalgia, low-grade fever. Nephrology is consulted for acute kidney injury #1 acute kidney injury on chronic kidney disease -No available labs were reviewed but documented serum creatinine was 1.8 mg/dL prior to admission -Serum creatinine peaked 5.12 mg/dL on 04/08 and today his creatinine has improved to 3.94 mg/dL. Per patient's patient had gross hematuria at home. -GN work-up sent awaiting results #2 volume -Overall acceptable. Per patient's he is on multiple diuretics at home. Patient does have some edema in his lower legs and feet but per patient and this is better than what it has been in the past. Currently diuretics are on hold. -Per I&O patient is net negative 2Liters -Bps acceptable, not on any antihypertensives #3 anemia -Hemoglobin 7.3, paraproteinemia pending #4 acidemia -Mild secondary to renal dysfunction #5 hyperuricemia -Uric acid was 11.5. Should improve with improvement renal function. On prednisone and allopurinol #6 mild hyponatremia -secondary to acute kidney injury, asymptomatic. Sodium 134 Plan -Overall there has been some improvement in kidney function. Creatinine peaked 5.12mgdL and today is 3.94 mg/dL, estimated GFR 17 mL/min. Patient has good urine output, 4 L urine output yesterday. Patient has Coffey. 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 -continue holding lasix, losartan and metolazone -Patient had kidney biopsy on 04/10. Results pending. -UA on 04/08 occult blood 250, protein 100. Urine protein/creatinine ratio 2.4 g. -EARLE screen is negative, rest of serologies pending. -can do voiding trials and remove coffey -blood cultures and urine cx no growth to date -Reviewed plan with patient and . Questions answered. -Discussed with Dr. Ortiz.
[2022-04-11] MEDS: Potassium Chloride Oral Tablet 20 MEQ 40 MEQ PO (11:18)
--- NOTE | 2022-04-11 13:13 | NURSING ---
Gave report to Bonita CHANG
--- NOTE | 2022-04-11 14:32 | PCM.PN.HOSP ---
Subjective Subjective Patient came to bed after renal biopsy, left side. Seen and examined. Patient making about 2.3 L of urine output. Objective Data Objective Data Vital Signs: Vital Signs Temp Pulse Resp BP Pulse Ox O2 Del Method O2 Flow Rate 98.3 F 123 H 18 130/63 H 96 Room Air 2 04/11/22 09:10 04/11/22 09:10 04/11/22 09:10 04/11/22 09:10 04/11/22 09:10 04/11/22 09:10 04/09/22 10:50 Oxygen Flow Rate (L/min) 2 Oxygen Delivery Method [1150] Room Air Oxygen Delivery Method [1145] Room Air Oxygen Delivery Method [10] Room Air Oxygen Delivery Method [9] Room Air Oxygen Delivery Method [8] Room Air Oxygen Delivery Method [7] Room Air Oxygen Delivery Method [6] Room Air Oxygen Delivery Method [5] Room Air Oxygen Delivery Method [4] Room Air Oxygen Delivery Method [3] Room Air Oxygen Delivery Method [2] Room Air Oxygen Delivery Method [1 ( Room Air Initial Baseline)] Oxygen Delivery Method Room Air Weight: 301 lb 13.005 oz Body Mass Index (BMI) 43.5 Intake & Output: Intake and Output for Last 24 Hours 04/09/22 04/10/22 04/11/22 23:59 23:59 23:59 Intake Total 1620 / 1680 980 / 980 660 / 660 Output Total 2300 / 3400 4025 / 4025 1250 / 1250 Balance -680 / -1720 -3045 / -3045 -590 / -590 Lab / Micro Data Result Diagrams: 04/11/22 06:10 04/11/22 06:10 Labs: Laboratory Results - last 24 hr 04/08/22 05:17: GOLDEN-1 Antibody Not Reportable, SS-A/Ro IgG Antibody Not Reportable, SS-B/La IgG Antibody Not Reportable, Sm (Salvador) Antibody Not Reportable, CREWMAN ARMOURED PERSONNEL CARRIER M113 Antibody Not Reportable, Scl-70 Scleroderma Ab Not Reportable, Double Strand DNA Ab Not Reportable, Centromere B Antibody Not Reportable 04/10/22 14:51: Hgb 8.1 L, Hct 25.6 L 04/11/22 06:10: WBC 15.6 H, RBC 2.65 L, Hgb 7.3 L, Hct 22.7 L, MCV 85.7, MCH 27.5, MCHC 32.2, RDW Std Deviation 50.7 H, RDW Coeff of Singh 16.2 H, Plt Count 496 H, MPV 8.5, Neut % (Auto) Not Reportable, Absolute Neuts (auto) 12.5 H, Absolute Lymphs (auto) 2.03, Total Counted 100, Neutrophils % (Manual) 80 H, Lymphocytes % (Manual) 13 L, Monocytes % (Manual) 5, Myelocytes % 2 H, Diff Path Review January foll, Platelet Estimate ADEQUATE, Hypochromasia 1+ 04/11/22 06:10: Sodium 134 L, Potassium 3.4 L, Chloride 102, Carbon Dioxide 19.0 L, BUN 72 H, Creatinine 3.94 H, Estim Creat Clear Calc 20.07, Est GFR (MDRD) Af Amer 20 L, Est GFR (MDRD) Non-Af 17 L, BUN/Creatinine Ratio 18.3, Glucose 102, Calcium 8.7, Phosphorus 4.8, Albumin 1.7 L Micro: Microbiology 04/07/22 10:24 Urine, Clean Catch Urine Culture - Final Culture exhibits no growth. 04/07/22 14:00 Blood Culture (Wb) - Right Hand Blood Culture - Preliminary No growth in 48 hours. 04/07/22 13:50 Blood Culture (Wb) - Right Forearm Blood Culture - Preliminary No growth in 48 hours. 04/09/22 03:45 Stool Stool Occult Blood (JOVAN) - Final 04/07/22 14:10 Mucosa - Nasopharyngeal Respiratory Panel (PCR) - Final Radiography Diagnostic Testing: Radiology Impression Echocardiogram 04/08/22 14:25 Interpretation Summary Normal LV size. Left ventricular systolic function is normal. The estimated ejection fraction is 60 %. Contrast injection was performed. The study was technically limited. The study was technically difficult. Ordering Physician: Grzegorz Ortiz Referring Physician: Kaykay Marshall Performed By: Liya Whitley RCS Physical Exam Narrative mild improvement in shortness of breath. Upper extremities are still swollen. Venous duplex upper extremity ordered. Urine output class, Warren catheter. UOP: 1750 ml Physical exam General: Alert, Oriented x3, Cooperative, morbid obesity BMI 42.4 kg/m?. HEENT: Atraumatic, PERRLA, EOMI, Normocephalic Oral: Deep oropharyngeal structures not clearly visualized. No obvious ulcer Mucosal Lesions/ Ulcerations Neck: Supple, No JVD, Negative Carotid Bruits Lungs: Air entry diminished in bilateral lung bases. No crepitation/rhonchi Cardiovascular: Sinus tachycardia, Normal S1, Normal S2, No murmurs Abdomen: Abdominal binder present. History of incisional hernia repair. Bowel Sounds Present, Soft, Non Tender, flat abdomen : Urine dark yellow about 2.3 L. Left renal biopsy dressing is dry. Mild tenderness. No hematoma. Extremities: Bilateral lower extremity pitting edema, Capillary Refill Less than 3 Seconds Skin: White chalky nodules over medial aspect of right third finger, right great toe. Musculoskeletal: Tenderness over hand, forearms, both elbow joints, right ankle and right great toe. Very restricted ROM at knee and hip joints. Forearms are softer. Status post right hip replacement, surgical scar well-healed Neurological: Cranial nerves II-XII grossly intact, DTR 2+/4 and Symmetrical, Neuro grossly intact Psych/Mental Status: flat affect Assessment & Plan Assessment/Plan (1) MAXI (acute kidney injury): PLAN: This is a 61-year-old patient woman admitted directly from ED for multiple acute issues including shortness of breath, dyspnea on mild exertion, low-grade fever, generalized weakness and swelling, severe anemia and acute kidney injury on CKD: 1. Acute normocytic normochromic anemia with history of chronic anemia: In ED, hemoglobin 7.2, MCV 84, platelet 560,000. Patient has mild hematuria. Stool for occult blood negative. Patient had 1 unit of PRBC transfusion in [place] ED. labs CBC CMP are ordered. GI is consulted. No prior history of GI bleed, PUD or chronic GI condition. Protonix 40 mg IV twice daily. 04/08: Hemoglobin is stable between 7 to 8 g%. No acute external bleeding. Discussed with the GI. No acute indication for transfusion until hemoglobin drops less than 7 04/09: Hemoglobin 7.3. Iron profile suggestive of anemia of chronic disease/chronic kidney disease. Immature reticulocyte fraction high. Patient given IV iron. Underwent EGD which shows erythematous mucosa and duodenopathy. Continue PPI. 04/10: Hemoglobin 8.1. No active bleeding. 2. Acute kidney injury on CKD stage III, unclear type: Suspected mostly due to diuretic furosemide, anemia or related to recent surgery. Admission BUN/creatinine 50/4.7, prior baseline about 1.8-2.3. IV fluid, hold nephrotoxic medications. Renal and bladder ultrasound. Urine random sodium 30. Kidney and bladder ultrasound done reported normal size of kidneys. Distended neobladder 168 mL. Normal wall thickness. No mass. Kidney and bladder ultrasound done reported normal size of kidneys. Distended neobladder 168 mL. Normal wall thickness. No mass. Coding Technician is consulted 04/08: Discussed with the senior quality technician. Suspicion of RPGN. Urine for protein, creatinine and osmolality ordered. Warren cath patient ordered. SPEP and immunofixation pending. Urine random protein 218 mg, protein creatinine ratio 2.4 g. UA done in ED, WBC 11-15, mild hematuria. Repeat UA ordered. Discussed with the senior quality technician. Possible RPGN, plan for kidney biopsy on Sunday. 04/09: No significant decrease in creatinine. Bicarb is low, 17. Started on sodium bicarbonate tablet. 04/10: Patient making good amount of urine about 2.3 L. Discussed with the senior quality technician. Does not think patient will need renal replacement therapy. 3. Dyspnea on exertion, generalized leg swelling edema on furosemide, suspicion of heart failure: 2D echo is ordered. venous duplex of lower extremity negative for DVT. Patient has sinus tachycardia. VQ scan ordered. Modified Wells criteria for PE calculated, 3.0 moderate risk 2. BNP 179 04/08: VQ scan reported normal. Venous duplex upper extremities ordered. 04/09: Venous duplex of right upper extremity reported normal with no evidence of DVT or superficial thrombophlebitis of basilic vein or cephalin veins. 04/10: Echo EF 60%. Technically difficult study. 4. Low-grade fever unclear etiology possible gout exacerbation: Patient does not have clear-cut focus of infection. UA shows WBC 11-15, 1+ urine bacteria nitrite negative, LE 25. As per , his fever is less than 100 Fahrenheit at home. Patient has history of gout. Started on Solu-Medrol 40 mg 1 dose and then prednisone 40 mg daily from tomorrow and low-dose allopurinol 100 mg daily. Patient has leukocytosis 12.7 thousand with left shift but may be from inflammatory reason. Chest x-ray right basilar atelectasis with no acute cardiopulmonary findings. CT with right hip showed no evidence of fluid collections, abscess or seroma. Mild right hip stranding. Patient had IV Rocephin 2 g empirically from ED physician. Repeat chest x-ray. Continue empiric ceftriaxone 2 g daily. Patient is vaccinated boosted with COVID-19. 04/08: Uric acid is high. Phosphorus 5.9. Allopurinol dose increased 100 mg twice daily. 04/09 dose increased to 100 mg 3 times daily 5. Hypertension: Blood pressure in normal range. 6. Recent right hip replacement: PT and OT ordered. 7. Morbid obesity: BMI 42.4 kg/m?. Center Maker Hand consult. Weight loss counseling done. 8. VTE prophylaxis: Pharmacological pulse contraindicated in view of acute anemia. Bilateral SCDs discontinue if platelet count drops less than 50,000 or hemoglobin less than 8 g% Total time of the visit including total time spent in counseling or coordination of care, (more than 50% of the total time, spent in obtaining medical information from nurses and other ancillary care providers,explaining to the patient about labs, imaging, diagnosis and management), discussion with consultants senior quality technician and facilities project manager, review of labs and imaging is 45 minutes. Living will/advanced directive/end of life care: Patient does have living will or advanced directive. His is power of litigation attorney associate for health. After discussion of benefits/risks procedures involved with full code, DNR CC arrest and DNR CC, the patient opted for full code. Patient and his do want artificial life support including intubation, tube feed, ventilator and/chest compression, central venous catheter, vasopressor and DC shock if needed Charges/Coding Visit Charges Inpatient E&M: 12651 Subs Hosp L2
--- NOTE | 2022-04-11 14:42 | PCM.PN.HOSP ---
Subjective Subjective Follow-up for acute kidney injury, shortness of breath and generalized swelling and musculoskeletal pain. Objective Data Objective Data Vital Signs: Vital Signs Temp Pulse Resp BP Pulse Ox O2 Del Method O2 Flow Rate 98.3 F 123 H 18 130/63 H 96 Room Air 2 04/11/22 09:10 04/11/22 09:10 04/11/22 09:10 04/11/22 09:10 04/11/22 09:10 04/11/22 09:10 04/09/22 10:50 Oxygen Flow Rate (L/min) 2 Oxygen Delivery Method [1150] Room Air Oxygen Delivery Method [1145] Room Air Oxygen Delivery Method [10] Room Air Oxygen Delivery Method [9] Room Air Oxygen Delivery Method [8] Room Air Oxygen Delivery Method [7] Room Air Oxygen Delivery Method [6] Room Air Oxygen Delivery Method [5] Room Air Oxygen Delivery Method [4] Room Air Oxygen Delivery Method [3] Room Air Oxygen Delivery Method [2] Room Air Oxygen Delivery Method [1 ( Room Air Initial Baseline)] Oxygen Delivery Method Room Air Weight: 301 lb 13.005 oz Body Mass Index (BMI) 43.5 Intake & Output: Intake and Output for Last 24 Hours 04/09/22 04/10/22 04/11/22 23:59 23:59 23:59 Intake Total 1620 / 1680 980 / 980 660 / 660 Output Total 2300 / 3400 4025 / 4025 1250 / 1250 Balance -680 / -1720 -3045 / -3045 -590 / -590 Lab / Micro Data Result Diagrams: 04/11/22 06:10 04/11/22 06:10 Labs: Laboratory Results - last 24 hr 04/08/22 05:17: GOLDEN-1 Antibody Not Reportable, SS-A/Ro IgG Antibody Not Reportable, SS-B/La IgG Antibody Not Reportable, Sm (Salvador) Antibody Not Reportable, CORN PRESS OPERATOR Antibody Not Reportable, Scl-70 Scleroderma Ab Not Reportable, Double Strand DNA Ab Not Reportable, Centromere B Antibody Not Reportable 04/10/22 14:51: Hgb 8.1 L, Hct 25.6 L 04/11/22 06:10: WBC 15.6 H, RBC 2.65 L, Hgb 7.3 L, Hct 22.7 L, MCV 85.7, MCH 27.5, MCHC 32.2, RDW Std Deviation 50.7 H, RDW Coeff of Singh 16.2 H, Plt Count 496 H, MPV 8.5, Neut % (Auto) Not Reportable, Absolute Neuts (auto) 12.5 H, Absolute Lymphs (auto) 2.03, Total Counted 100, Neutrophils % (Manual) 80 H, Lymphocytes % (Manual) 13 L, Monocytes % (Manual) 5, Myelocytes % 2 H, Diff Path Review May foll, Platelet Estimate ADEQUATE, Hypochromasia 1+ 04/11/22 06:10: Sodium 134 L, Potassium 3.4 L, Chloride 102, Carbon Dioxide 19.0 L, BUN 72 H, Creatinine 3.94 H, Estim Creat Clear Calc 20.07, Est GFR (MDRD) Af Amer 20 L, Est GFR (MDRD) Non-Af 17 L, BUN/Creatinine Ratio 18.3, Glucose 102, Calcium 8.7, Phosphorus 4.8, Albumin 1.7 L Micro: Microbiology 04/07/22 10:24 Urine, Clean Catch Urine Culture - Final Culture exhibits no growth. 04/07/22 14:00 Blood Culture (Wb) - Right Hand Blood Culture - Preliminary No growth in 48 hours. 04/07/22 13:50 Blood Culture (Wb) - Right Forearm Blood Culture - Preliminary No growth in 48 hours. 04/09/22 03:45 Stool Stool Occult Blood (JOVAN) - Final 04/07/22 14:10 Mucosa - Nasopharyngeal Respiratory Panel (PCR) - Final Radiography Diagnostic Testing: Radiology Impression Echocardiogram 04/08/22 14:25 Interpretation Summary Normal LV size. Left ventricular systolic function is normal. The estimated ejection fraction is 60 %. Contrast injection was performed. The study was technically limited. The study was technically difficult. Ordering Physician: Grzegorz Ortiz Referring Physician: Kaykay Marshall Performed By: Liya Whitley RCS Physical Exam Narrative Urine output, about 4 L. Decrease in creatinine. Mild improvement in shortness of breath. Patient still has pain. Physical exam General: Alert, Oriented x3, Cooperative, morbid obesity BMI 42.4 kg/m?. HEENT: Atraumatic, PERRLA, EOMI, Normocephalic Oral: Deep oropharyngeal structures not clearly visualized. No obvious ulcer Mucosal Lesions/ Ulcerations Neck: Supple, No JVD, Negative Carotid Bruits Lungs: Air entry diminished in bilateral lung bases. No crepitation/rhonchi Cardiovascular: Sinus tachycardia, Normal S1, Normal S2, No murmurs Abdomen: Abdominal binder present. History of incisional hernia repair. Bowel Sounds Present, Soft, Non Tender, flat abdomen : Urine clear. Left renal biopsy dressing is dry. No tenderness. No hematoma. Extremities: Bilateral lower extremity pitting edema, Capillary Refill Less than 3 Seconds Skin: White chalky nodules over medial aspect of right third finger, right great toe. Musculoskeletal: Tenderness over hand, forearms, both elbow joints, right ankle and right great toe. Very restricted ROM at knee and hip joints. Forearms are softer. Status post right hip replacement, surgical scar well-healed Neurological: Cranial nerves II-XII grossly intact, DTR 2+/4 and Symmetrical, Neuro grossly intact Psych/Mental Status: flat affect Assessment & Plan Assessment/Plan (1) MAXI (acute kidney injury): PLAN: This is a 61-year-old patient woman admitted directly from ED for multiple acute issues including shortness of breath, dyspnea on mild exertion, low-grade fever, generalized weakness and swelling, severe anemia and acute kidney injury on CKD: 1. Acute normocytic normochromic anemia with history of chronic anemia: In ED, hemoglobin 7.2, MCV 84, platelet 560,000. Patient has mild hematuria. Stool for occult blood negative. Patient had 1 unit of PRBC transfusion in [place] ED. labs CBC CMP are ordered. GI is consulted. No prior history of GI bleed, PUD or chronic GI condition. Protonix 40 mg IV twice daily. 04/08: Hemoglobin is stable between 7 to 8 g%. No acute external bleeding. Discussed with the GI. No acute indication for transfusion until hemoglobin drops less than 7 04/09: Hemoglobin 7.3. Iron profile suggestive of anemia of chronic disease/chronic kidney disease. Immature reticulocyte fraction high. Patient given IV iron. Underwent EGD which shows erythematous mucosa and duodenopathy. Continue PPI. 04/10: Hemoglobin 8.1. No active bleeding. 04/11: Hemoglobin decreased to 7.3. No acute bleeding possible decreased after kidney biopsy. 2. Acute kidney injury on CKD stage III, unclear type: Suspected mostly due to diuretic furosemide, anemia or related to recent surgery. Admission BUN/creatinine 50/4.7, prior baseline about 1.8-2.3. IV fluid, hold nephrotoxic medications. Renal and bladder ultrasound. Urine random sodium 30. Kidney and bladder ultrasound done reported normal size of kidneys. Distended neobladder 168 mL. Normal wall thickness. No mass. Kidney and bladder ultrasound done reported normal size of kidneys. Distended neobladder 168 mL. Normal wall thickness. No mass. Information Clerk is consulted 04/08: Discussed with the milking system installer. Suspicion of RPGN. Urine for protein, creatinine and osmolality ordered. Warren cath patient ordered. SPEP and immunofixation pending. Urine random protein 218 mg, protein creatinine ratio 2.4 g. UA done in ED, WBC 11-15, mild hematuria. Repeat UA ordered. Discussed with the milking system installer. Possible RPGN, plan for kidney biopsy on Sunday. 04/09: No significant decrease in creatinine. Bicarb is low, 17. Started on sodium bicarbonate tablet. 04/10: Patient making good amount of urine about 2.3 L. Discussed with the milking system installer. Does not think patient will need renal replacement therapy. 04/11: Patient had good urine output about 4 L probably is drinking a lot of water. Discussed to restrict fluid intake to about 1.5 L as patient is swollen. Decrease in creatinine. K3.4 replaced. 3. Acute on chronic HFpEF due to morbid obesity and hypertension, nonischemic cardiomyopathy.: 2D echo is ordered. venous duplex of lower extremity negative for DVT. Patient has sinus tachycardia. VQ scan ordered. Modified Wells criteria for PE calculated, 3.0 moderate risk 2. BNP 179 04/08: VQ scan reported normal. Venous duplex upper extremities ordered. 04/09: Venous duplex of right upper extremity reported normal with no evidence of DVT or superficial thrombophlebitis of basilic vein or cephalin veins. 04/10: Echo EF 60%. Technically difficult study. Probably, patient has acute on chronic HFpEF 04/11: No need for diuresis as patient is making good amount of urine. 4. Low-grade fever unclear etiology possible gout exacerbation: Patient does not have clear-cut focus of infection. UA shows WBC 11-15, 1+ urine bacteria nitrite negative, LE 25. As per , his fever is less than 100 Fahrenheit at home. Patient has history of gout. Started on Solu-Medrol 40 mg 1 dose and then prednisone 40 mg daily from tomorrow and low-dose allopurinol 100 mg daily. Patient has leukocytosis 12.7 thousand with left shift but may be from inflammatory reason. Chest x-ray right basilar atelectasis with no acute cardiopulmonary findings. CT with right hip showed no evidence of fluid collections, abscess or seroma. Mild right hip stranding. Patient had IV Rocephin 2 g empirically from ED physician. Repeat chest x-ray. Continue empiric ceftriaxone 2 g daily. Patient is vaccinated boosted with COVID-19. 04/08: Uric acid is high. Phosphorus 5.9. Allopurinol dose increased 100 mg twice daily. 04/09 dose increased to 100 mg 3 times daily 04/10: With improvement in creatinine and creatinine clearance, increase allopurinol to 200 mg 3 times daily 5. Hypertension: Blood pressure in normal range. 6. Recent right hip replacement: PT and OT ordered. 7. Morbid obesity: BMI 42.4 kg/m?. Payroll Tax Analyst consult. Weight loss counseling done. 8. VTE prophylaxis: Pharmacological pulse contraindicated in view of acute anemia. Bilateral SCDs discontinue if platelet count drops less than 50,000 or hemoglobin less than 8 g% Total time of the visit including total time spent in counseling or coordination of care, (more than 50% of the total time, spent in obtaining medical information from nurses and other ancillary care providers,explaining to the patient about labs, imaging, diagnosis and management), discussion with consultants milking system installer and evp marketing, review of labs and imaging is 45 minutes. Living will/advanced directive/end of life care: Patient does have living will or advanced directive. His is power of deputy prosecuting attorney for health. After discussion of benefits/risks procedures involved with full code, DNR CC arrest and DNR CC, the patient opted for full code. Patient and his do want artificial life support including intubation, tube feed, ventilator and/chest compression, central venous catheter, vasopressor and DC shock if needed Charges/Coding Visit Charges Inpatient E&M: 80196 Subs Hosp L2
[2022-04-12] VITALS (11 sets, daily range): BP systolic 128–155; BP diastolic 69–101; PULSE 70–118; RESP 16–20; TEMP 36.6–36.8; O2SAT 96–99
[2022-04-12] MEDS: HYDROmorphone 0.5 MG/0.5 ML SYRINGE IV ×2 (03:45→12:41)
[2022-04-12 05:42] LABS: Hematocrit 21.6 % (40-54); Hemoglobin 7.1 g/dL (13.0-16.5); Mean Corp Hgb Conc 32.9 g/dL (32-36); Mean Platelet Vol. 8.6 fl (6.2-12.0); POSITIVE COUNT YES; POSITIVE MORPHOLOGY YES; Platelet Count 481 K/mm3 (150-450); RBC Distribution Width CV 16.3 % (11.6-14.6); RBC Distribution Width SD 50.4 fl (35.1-43.9); Red Blood Count 2.54 M/mm3 (4.6-6.2); White Blood Count 16.9 K/mm3 (4.4-11.0)
[2022-04-12 05:47] LABS: Differential Indicated MANUAL DIFF
[2022-04-12 06:07] LABS: Lymphocyte 17 % (19-41); Metamyelocyte 3 % (0-1); Monocyte 5 % (0-10); Myelocyte 5 % (0-0); Neutrophil-Segmented 70 % (47-70); Total Cells Counted 100 (MANUAL DIFF)
[2022-04-12 06:08] LABS: Hypochromasia 1+; Platelet Estimate SLT INC (ADEQ)
[2022-04-12 06:09] LABS: Absolute Lymphocyte Count 2.87 X10^3/uL (0.83-4.51); Absolute Neutrophil Count 11.8 X10^3/uL (2.0-7.7); Lymphocyte # 2.87 X10^3/ul (0.83-4.51)
[2022-04-12 06:13] LABS: Anion Gap 11 (5-15); BUN 73 mg/dL (7-18); BUN/Creat Ratio 22.6 RATIO (10-20); Calcium,Total 8.5 mg/dL (8.5-10.1); Chloride 102 mmol/L (98-107); Creatinine, Serum 3.23 mg/dL (0.70-1.30); EST Glomerular Filtration Rate 21 mL/min (>60); Est Glom Filt Rate - Afr Amer 25 mL/min (>60); Estimated Creatinine Clearance 24.48 ml/min; Glucose 93 mg/dL (74-106); Potassium 3.6 mmol/L (3.5-5.1); Sodium Level 134 mmol/L (136-145)
[2022-04-12] MEDS: oxyCODONE 5 MG Tablet PO ×4 (06:48→21:33)
[2022-04-12] MEDS: Acetaminophen 325 MG Tablet 650 MG PO ×4 (07:25→21:33)
[2022-04-12] MEDS: Sodium Bicarbonate 650 MG Tablet PO ×4 (07:26→21:34)
[2022-04-12] MEDS: Allopurinol 100 MG Tablet PO ×3 (07:26→17:20)
[2022-04-12] MEDS: predniSONE 20 MG Tablet 40 MG PO (07:26)
--- NOTE | 2022-04-12 11:25 | CASEMGMT ---
Per therapy notes, pt is needed assist to even roll in bed and max assist 1-2 for EOB and standing. This RN CM to room to discuss discharge plan and pt/family are agreeable to rehab at discharge. Pt/ provided list of SNF providers including quality and resource use data and consistent with the pt's preferred geographic region, medical needs, and insurance network. provided lists for [facility] and CM to f/u. SStcamden RN CM
--- NOTE | 2022-04-12 11:46 | PCM.PN.REN ---
Subjective Subjective Following for MAXI on CKD Resting in bed. No overnight events. Denies any complaints today. and daughter at bedside. Objective Data Objective Data Vital Signs: Vital Signs Temp Pulse Resp BP Pulse Ox O2 Del Method O2 Flow Rate 98.1 F 113 H 16 133/89 H 98 Room Air 2 04/12/22 11:30 04/12/22 11:30 04/12/22 11:30 04/12/22 11:30 04/12/22 11:30 04/12/22 11:30 04/09/22 10:50 Oxygen Flow Rate (L/min) 2 Oxygen Delivery Method [1150] Room Air Oxygen Delivery Method [1145] Room Air Oxygen Delivery Method [10] Room Air Oxygen Delivery Method [9] Room Air Oxygen Delivery Method [8] Room Air Oxygen Delivery Method [7] Room Air Oxygen Delivery Method [6] Room Air Oxygen Delivery Method [5] Room Air Oxygen Delivery Method [4] Room Air Oxygen Delivery Method [3] Room Air Oxygen Delivery Method [2] Room Air Oxygen Delivery Method [1 ( Room Air Initial Baseline)] Oxygen Delivery Method Room Air Weight: 135.7 kg Body Mass Index (BMI) 43.5 Intake & Output: Intake and Output for Last 24 Hours 04/10/22 04/11/22 04/12/22 23:59 23:59 23:59 Intake Total 980 / 980 1160 / 1160 700 / 700 Output Total 4025 / 4025 2100 / 2850 3100 / 3100 Balance -3045 / -3045 -940 / -1690 -2400 / -2400 Lab / Micro Data Result Diagrams: 04/12/22 05:18 04/12/22 05:18 Labs: Laboratory Results - last 24 hr 04/10/22 12:30: Blood Type A POSITIVE, Antibody Screen NEGATIVE, Crossmatch See Detail 04/12/22 05:18: Sodium 134 L, Potassium 3.6, Chloride 102, Carbon Dioxide 21.0, Anion Gap 11, BUN 73 H, Creatinine 3.23 H, Estim Creat Clear Calc 24.48, Est GFR (MDRD) Af Amer 25 L, Est GFR (MDRD) Non-Af 21 L, BUN/Creatinine Ratio 22.6 H, Glucose 93, Calcium 8.5 04/12/22 05:18: WBC 16.9 H, RBC 2.54 L, Hgb 7.1 L, Hct 21.6 L, MCV 85.0, MCH 28.0, MCHC 32.9, RDW Std Deviation 50.4 H, RDW Coeff of Singh 16.3 H, Plt Count 481 H, MPV 8.6, Neut % (Auto) Not Reportable, Absolute Neuts (auto) 11.8 H, Absolute Lymphs (auto) 2.87, Total Counted 100, Neutrophils % (Manual) 70, Lymphocytes % (Manual) 17 L, Monocytes % (Manual) 5, Metamyelocytes % 3 H, Myelocytes % 5 H, Diff Path Review January foll, Platelet Estimate SLT INC, Hypochromasia 1+ Micro: Microbiology 04/07/22 10:24 Urine, Clean Catch Urine Culture - Final Culture exhibits no growth. 04/07/22 14:00 Blood Culture (Wb) - Right Hand Blood Culture - Preliminary No growth in 48 hours. 04/07/22 13:50 Blood Culture (Wb) - Right Forearm Blood Culture - Preliminary No growth in 48 hours. 04/09/22 03:45 Stool Stool Occult Blood (JOVAN) - Final 04/07/22 14:10 Mucosa - Nasopharyngeal Respiratory Panel (PCR) - Final Physical Exam Narrative Alert and oriented x3, no apparent distress S1-S2 regular Breath sounds clear anteriorly and posteriorly. No wheezes, rhonchi or rales noted Abdomen distended, soft, positive bowel sounds Edema noted bilateral lower legs and feet. Improved edema to bilateral hands Coffey catheter present with clear yellow urine Assessment & Plan Assessment/Plan (1) MAXI (acute kidney injury): (2) Acute anemia: (3) FUO (fever of unknown origin): (4) Acidosis: (5) Hyponatremia: PLAN: Plan Assessment Very pleasant 61-year-old gentleman underlying history of hypertension with multiple hernia surgeries admitted to the hospital due to myalgia, low-grade fever. Nephrology is consulted for acute kidney injury #1 acute kidney injury on chronic kidney disease -No available labs were reviewed but documented serum creatinine was 1.8-2.3 mg/dL prior to admission -Serum creatinine peaked 5.12 mg/dL on 04/08 and today his creatinine has improved to 3.94 mg/dL. Per patient's patient had gross hematuria at home. -GN work-up sent awaiting results #2 volume -Overall acceptable. Per patient's he is on multiple diuretics at home. Patient does have some edema in his lower legs and feet but per patient and this is better than what it has been in the past. Currently diuretics are on hold. -Bps acceptable, not on any antihypertensives -?Acute on chronic HFpEF due to morbid obesity and hypertension, nonischemic cardiomyopathy, 2D echo EF 60%, difficult study ? #3 anemia -Hemoglobin 7.1, paraproteinemia pending. Stool occult blood negative #4 acidemia -Mild secondary to renal dysfunction. on oral bicarb #5 hyperuricemia -Uric acid was 11.5. Should improve with improvement renal function. On prednisone and allopurinol #6 mild hyponatremia -secondary to acute kidney injury, asymptomatic. Sodium 134 Plan -Overall there has been improvement in kidney function without needing PEDIATRIC RADIOLOGIST. Creatinine peaked 5.12mgdL and today is 3.23 mg/dL, estimated GFR 21 mL/min. Patient has good urine output, 3L urine output so far today. Patient was drinking ~5L water a day but states has now cut back on fluid/ice intake. Patient has Coffey. At this time there is no acute indication for PEDIATRIC RADIOLOGIST as kidney function improving, no hyperkalemia, bicarb acceptable, and patient is nonoliguric. Patient is net negative ~5 L per I's and O. Not on IVF or diuretics. -continue holding lasix, losartan and metolazone -Patient had kidney biopsy on 04/10. Results pending. -UA on 04/08 occult blood 250, protein 100. Urine protein/creatinine ratio 2.4 g. -EARLE screen is negative, rest of serologies pending. -can do voiding trials and remove coffey today. -blood cultures and urine cx no growth to date -Getting PRBC today and now on full liquid diet -Reviewed plan with patient and . Questions answered. -discharge planning in progress to [facility] for rehab when stable for hospital discharge. Will arrange for hospital follow-up. -Discussed with Dr. Ortiz.
[2022-04-12 12:15] LABS: Pathologist Review Reviewed
[2022-04-12 12:19] LABS: Pathologist Review Reviewed
[2022-04-12] MEDS: 0.9% Saline Lock 10 ML Syringe IV ×2 (12:41→13:38)
--- NOTE | 2022-04-12 13:00 | CASEMGMT ---
Social Work Note SW in to speak with pt and pt's family. Pt and pt's family agreeable to [facility]. SW asked for another choice and pt's states there are no other choices. DMITRY provided referral to Giss[facility] with TCU. Gisselle states TCU is able to accept pt and will submit for pre-cert. DMITRY updated pt and pt's that TCU is able to accept pt and pre-cert has been submitted. Plan: TCU pending pre-cert Mikaela Weston CASH APPLICATIONS MANAGER, LOADING MANAGER
[2022-04-12] MEDS: Bisacodyl 10 MG Suppository RC (17:13)
[2022-04-12] MEDS: Senna/Docusate Sodium 1 Tablet 2 TABLET PO ×2 (17:18→21:32)
[2022-04-12] MEDS: Polyethylene Glycol 3350 17 GM PACKET PO (17:18)
--- NOTE | 2022-04-12 18:30 | PN.HOSP_ITS ---
Subjective Subjective Follow-up for acute kidney injury Objective Data Objective Data Vital Signs: Vital Signs Temp Pulse Resp BP Pulse Ox O2 Del Method O2 Flow Rate 97.9 F 112 H 16 155/98 H 98 Room Air 2 04/12/22 15:00 04/12/22 15:00 04/12/22 15:00 04/12/22 15:00 04/12/22 15:00 04/12/22 15:00 04/09/22 10:50 Oxygen Flow Rate (L/min) 2 Oxygen Delivery Method [1150] Room Air Oxygen Delivery Method [1145] Room Air Oxygen Delivery Method [10] Room Air Oxygen Delivery Method [9] Room Air Oxygen Delivery Method [8] Room Air Oxygen Delivery Method [7] Room Air Oxygen Delivery Method [6] Room Air Oxygen Delivery Method [5] Room Air Oxygen Delivery Method [4] Room Air Oxygen Delivery Method [3] Room Air Oxygen Delivery Method [2] Room Air Oxygen Delivery Method [1 ( Room Air Initial Baseline)] Oxygen Delivery Method Room Air Weight: 299 lb 2.676 oz Body Mass Index (BMI) 43.5 Intake & Output: Intake and Output for Last 24 Hours 04/10/22 04/11/22 04/12/22 23:59 23:59 23:59 Intake Total 980 / 980 1160 / 1160 1389.17 / 1389.17 Output Total 4025 / 4025 2100 / 2850 3850 / 3850 Balance -3045 / -3045 -940 / -1690 -2460.83 / -2460.83 Lab / Micro Data Result Diagrams: 04/12/22 05:18 04/12/22 05:18 Labs: Laboratory Results - last 24 hr 04/10/22 12:30: Blood Type A POSITIVE, Antibody Screen NEGATIVE, Crossmatch See Detail 04/11/22 06:10: Diff Path Review Reviewed 04/12/22 05:18: Sodium 134 L, Potassium 3.6, Chloride 102, Carbon Dioxide 21.0, Anion Gap 11, BUN 73 H, Creatinine 3.23 H, Estim Creat Clear Calc 24.48, Est GFR (MDRD) Af Amer 25 L, Est GFR (MDRD) Non-Af 21 L, BUN/Creatinine Ratio 22.6 H, Glucose 93, Calcium 8.5 04/12/22 05:18: WBC 16.9 H, RBC 2.54 L, Hgb 7.1 L, Hct 21.6 L, MCV 85.0, MCH 28.0, MCHC 32.9, RDW Std Deviation 50.4 H, RDW Coeff of Singh 16.3 H, Plt Count 481 H, MPV 8.6, Neut % (Auto) Not Reportable, Absolute Neuts (auto) 11.8 H, Absolute Lymphs (auto) 2.87, Total Counted 100, Neutrophils % (Manual) 70, Lymphocytes % (Manual) 17 L, Monocytes % (Manual) 5, Metamyelocytes % 3 H, Myelocytes % 5 H, Diff Path Review Reviewed, Platelet Estimate SLT INC, Hypochromasia 1+ Micro: Microbiology 04/07/22 14:00 Blood Culture (Wb) - Right Hand Blood Culture - Final No growth in 5 days. 04/07/22 13:50 Blood Culture (Wb) - Right Forearm Blood Culture - Final No growth in 5 days. 04/07/22 10:24 Urine, Clean Catch Urine Culture - Final Culture exhibits no growth. 04/09/22 03:45 Stool Stool Occult Blood (JOVAN) - Final 04/07/22 14:10 Mucosa - Nasopharyngeal Respiratory Panel (PCR) - Final Physical Exam Narrative Urine output, about 2 L. Decrease in creatinine. Mild improvement in shortness of breath. Patient has improvement in the swelling and musculoskeletal pain Physical exam General: Alert, Oriented x3, Cooperative, morbid obesity BMI 42.4 kg/m?. HEENT: Atraumatic, PERRLA, EOMI, Normocephalic Oral: Deep oropharyngeal structures not clearly visualized. No obvious ulcer Mucosal Lesions/ Ulcerations Neck: Supple, No JVD, Negative Carotid Bruits Lungs: Air entry diminished in bilateral lung bases. No crepitation/rhonchi Cardiovascular: Sinus tachycardia, Normal S1, Normal S2, No murmurs Abdomen: Abdominal binder present. History of incisional hernia repair. Bowel Sounds Present, Soft, Non Tender, flat abdomen : Urine clear. Left renal biopsy dressing is dry. No tenderness. No hematoma. Extremities: Bilateral lower extremity and upper extremity pitting edema, improving. Capillary Refill Less than 3 Seconds Skin: White chalky nodules over medial aspect of right third finger, right great toe. Musculoskeletal: Mild tenderness over hand, forearms, both elbow joints, right ankle and right great toe. Very restricted ROM at knee and hip joints. Forea lalitha are softer. Status post right hip replacement, surgical scar well-healed Neurological: Cranial nerves II-XII grossly intact, DTR 2+/4 and Symmetrical, Neuro grossly intact Psych/Mental Status: flat affect Assessment & Plan Assessment/Plan (1) MAXI (acute kidney injury): PLAN: This is a 61-year-old patient woman admitted directly from ED for multiple acute issues including shortness of breath, dyspnea on mild exertion, low-grade fever, generalized weakness and swelling, severe anemia and acute kidney injury on CKD: 1. Acute normocytic normochromic anemia with history of chronic anemia: In ED, hemoglobin 7.2, MCV 84, platelet 560,000. Patient has mild hematuria. Stool for occult blood negative. Patient had 1 unit of PRBC transfusion in [place] ED. labs CBC CMP are ordered. GI is consulted. No prior history of GI bleed, PUD or chronic GI condition. Protonix 40 mg IV twice daily. 04/08: Hemoglobin is stable between 7 to 8 g%. No acute external bleeding. Discussed with the GI. No acute indication for transfusion until hemoglobin drops less than 7 04/09: Hemoglobin 7.3. Iron profile suggestive of anemia of chronic disease/chronic kidney disease. Immature reticulocyte fraction high. Patient given IV iron. Underwent EGD which shows erythematous mucosa and duodenopathy. Continue PPI. 04/10: Hemoglobin 8.1. No active bleeding. 04/11: Hemoglobin decreased to 7.3. No acute bleeding possible decreased after kidney biopsy. 04/12: Hemoglobin decreasing trend. Today 7.1 g%. 1 unit of PRBC transfusion ordered. No obvious bleeding. 2. Acute kidney injury on CKD stage III, unclear type: Suspected mostly due to diuretic furosemide, anemia or related to recent surgery. Admission BUN/creatin ine 50/4.7, prior baseline about 1.8-2.3. IV fluid, hold nephrotoxic medications. Renal and bladder ultrasound. Urine random sodium 30. Kidney and bladder ultrasound done reported normal size of kidneys. Distended neobladder 168 mL. Normal wall thickness. No mass. Kidney and bladder ultrasound done reported normal size of kidneys. Distended neobladder 168 mL. Normal wall thickness. No mass. Dye Range Operator Cloth is consulted 04/08: Discussed with the global clinical leader. Suspicion of RPGN. Urine for protein, creatinine and osmolality ordered. Warren cath patient ordered. SPEP and immunofixation pending. Urine random protein 218 mg, protein creatinine ratio 2.4 g. UA done in ED, WBC 11-15, mild hematuria. Repeat UA ordered. Discussed with the global clinical leader. Possible RPGN, plan for kidney biopsy on Sunday. 04/09: No significant decrease in creatinine. Bicarb is low, 17. Started on sodium bicarbonate tablet. 04/10: Patient making good amount of urine about 2.3 L. Discussed with the nep hrologist. Does not think patient will need renal replacement therapy. 04/11: Patient had good urine output about 4 L probably is drinking a lot of water. Discussed to restrict fluid intake to about 1.5 L as patient is swollen. Decrease in creatinine. K3.4 replaced. 04/12: Further decrease in creatinine. Patient making good amount of urine about 2 to 4 L daily. Discussed with patient's daughter at the bedside patient does not require [employer] B[employer]ER or kidney transplant as she was concerned for his MAXI. Discussed with the global clinical leader. 3. Acute on chronic HFpEF due to morbid obesity and hypertension, nonischemic cardiomyopathy.: 2D echo is ordered. venous duplex of lower extremity negative for DVT. Patient has sinus tachycardia. VQ scan ordered. Modified Wells criteria for PE calculated, 3.0 moderate risk 2. BNP 179 04/08: VQ scan reported normal. Venous duplex upper extremities ordered. 04/09: Venous duplex of right upper extremity reported normal with no evidence of DVT or superficial thrombophlebitis of basilic vein or cephalin veins. 04/10: Echo EF 60%. Technically difficult study. Probably, patient has acute on chronic HFpEF 04/11: No need for diuresis as patient is making good amount of urine. 4. Low-grade fever unclear etiology possible gout exacerbation: Patient does not have clear-cut focus of infection. UA shows WBC 11-15, 1+ urine bacteria n itrite negative, LE 25. As per , his fever is less than 100 Fahrenheit at home. Patient has history of gout. Started on Solu-Medrol 40 mg 1 dose and then prednisone 40 mg daily from tomorrow and low-dose allopurinol 100 mg daily. Patient has leukocytosis 12.7 thousand with left shift but may be from inflammatory reason. Chest x-ray right basilar atelectasis with no acute cardiopulmonary findings. CT with right hip showed no evidence of fluid collections, abscess or seroma. Mild right hip stranding. Patient had IV Rocephin 2 g empirically from ED physician. Repeat chest x-ray. Continue empiric ceftriaxone 2 g daily. Patient is vaccinated boosted with COVID-19. 04/08: Uric acid is high. Phosphorus 5.9. Allopurinol dose increased 100 mg twice daily. 04/09 dose increased to 100 mg 3 times daily 04/11: Discussed with pharmacist and patient creatinine clearance/allopurinol 100 mg 3 times daily 5. Hypertension: Blood pressure in normal range. 6. Recent right hip replacement: PT and OT ordered. 7. Morbid obesity: BMI 42.4 kg/m?. Radio Program Checker consult. Weight loss counseli ng done. 8. VTE prophylaxis: Pharmacological pulse contraindicated in view of acute anemia. Bilateral SCDs discontinue if platelet count drops less than 50,000 or hemoglobin less than 8 g% Total time of the visit including total time spent in counseling or coordination of care, (more than 50% of the total time, spent in obtaining medical information from nurses and other ancillary care providers,explaining to the patient about labs, imaging, diagnosis and management), discussion with consult ants global clinical leader and consumer loan underwriter, review of labs and imaging is 45 minutes. Living will/advanced directive/end of life care: Patient does have living will or advanced directive. His is power of trust and estates attorney for health. After discussion of benefits/risks procedures involved with full code, DNR CC arrest and DNR CC, the patient opted for full code. Patient and his do want artificial life support including intubation, tube feed, ventilator and/chest compression, central venous catheter, vasopressor and DC shock if needed Charges/Coding Visit Charges Inpatient E&M: 97612 Subs Hosp L2
[2022-04-13 03:00] VITALS: BP 127/80; PULSE 99; RESP 18; TEMP 36.7; O2SAT 99
[2022-04-13] MEDS: Acetaminophen 325 MG Tablet 650 MG PO ×3 (05:20→13:35)
[2022-04-13] MEDS: oxyCODONE 5 MG Tablet PO ×3 (05:20→13:34)
[2022-04-13 06:35] LABS: Hematocrit 24.5 % (40-54); Hemoglobin 7.9 g/dL (13.0-16.5); Mean Corp Hgb Conc 32.2 g/dL (32-36); Mean Corpuscular Volume 86.9 fL (80-94); Mean Platelet Vol. 8.3 fl (6.2-12.0); POSITIVE COUNT YES; POSITIVE MORPHOLOGY YES; Platelet Count 492 K/mm3 (150-450); RBC Distribution Width SD 50.4 fl (35.1-43.9); Red Blood Count 2.82 M/mm3 (4.6-6.2); White Blood Count 17.8 K/mm3 (4.4-11.0)
[2022-04-13 06:37] LABS: Differential Indicated MANUAL DIFF
[2022-04-13 06:59] LABS: Anion Gap 9 (5-15); BUN 70 mg/dL (7-18); BUN/Creat Ratio 24.6 RATIO (10-20); Calcium,Total 8.9 mg/dL (8.5-10.1); Chloride 105 mmol/L (98-107); Creatinine, Serum 2.84 mg/dL (0.70-1.30); EST Glomerular Filtration Rate 24 mL/min (>60); Est Glom Filt Rate - Afr Amer 29 mL/min (>60); Estimated Creatinine Clearance 27.85 ml/min; Glucose 88 mg/dL (74-106); Potassium 3.4 mmol/L (3.5-5.1); Sodium Level 137 mmol/L (136-145)
[2022-04-13 07:00] VITALS: PULSE 95
[2022-04-13 07:05] LABS: Metamyelocyte 3 % (0-1); Neutrophil-Band 0 % (0-5); Neutrophil-Segmented 70 % (47-70); Total Cells Counted 100 (MANUAL DIFF)
[2022-04-13 07:06] LABS: Eosinophil 1 % (0-5); Lymphocyte 15 % (19-41); Monocyte 3 % (0-10); Myelocyte 8 % (0-0)
[2022-04-13 07:07] LABS: Platelet Estimate SLT INC (ADEQ)
[2022-04-13 07:08] LABS: Absolute Neutrophil Count 12.5 X10^3/uL (2.0-7.7); Anisocytosis RARE; Hypochromasia 1+; Microcytosis RARE; Neutrophil # 12.45 X10^3/uL (2.7-7.7)
[2022-04-13 07:09] LABS: Absolute Lymphocyte Count 2.27 X10^3/uL (0.83-4.51); Lymphocyte # 2.27 X10^3/ul (0.83-4.51)
[2022-04-13 08:36] LABS: AST(SGOT) 30 U/L (15-37); Alanine Aminotransfer ALT/SGPT 39 U/L (16-61); Albumin, Serum 1.8 g/dL (3.2-5.0); Alkaline Phosphatase 125 U/L (45-117); Bilirubin, Direct 0.15 mg/dL (0.00-0.30); Protein, Total 5.8 g/dL (6.4-8.2); Uric Acid 9.3 mg/dL (3.5-7.2)
[2022-04-13] MEDS: predniSONE 10 MG Tablet 30 MG PO (08:48)
[2022-04-13] MEDS: Senna/Docusate Sodium 1 Tablet 2 TABLET PO (08:49)
[2022-04-13] MEDS: Polyethylene Glycol 3350 17 GM PACKET PO (08:49)
[2022-04-13] MEDS: Sodium Bicarbonate 650 MG Tablet PO ×2 (08:51→13:34)
[2022-04-13 08:53] VITALS: BP 143/80; PULSE 121; RESP 16; TEMP 36.8; O2SAT 96
--- NOTE | 2022-04-13 09:04 | CASEMGMT ---
Addendum entered by Mikaela Weston 04/13/22 09:59: SW updated physician that pt can discharge to TCU today. Pt to discharge to TCU today. DMITRY updated Gisselle with TCU. Plan: TCU today Original Note: Social Work Note SW received message from Gisselle with TCU stating pt was approved for TCU and must admit by 04/14. Mikaela Weston ASSISTANT ANALYST, EDUCATIONAL TECHNOLOGIST
[2022-04-13] MEDS: Allopurinol 100 MG Tablet PO ×2 (09:31→13:34)
--- NOTE | 2022-04-13 10:40 | PCM.TXEXTCAR ---
Diet Diet Order/Speech Therapy: 04/11/22 17:06 Diet: Full Liquid Is pt able to select menu?: Yes Diet Comments: 2000 rena Routine Orders/Code Status Suppository Type: Dulcolax 10mg Suppository Frequency: Daily PRN Routine Lab Work: CBC (weekly) and BMP (EVERY 3 DAYS until Kidney function normal) Code Status: Full Code Wound(s) lt flank: Wound Type: kidney biopsy site Therapies Weight Bearing: Weight bearing as tolerated Extremity Affected:: Bilateral Lower Physical Therapy: Eval and Treat Occupational Therapy: Eval and Treat Speech Therapy: Eval and Treat Problem/Diagnosis (1) MAXI (acute kidney injury): Status: Acute Code(s): N17.9 - Acute kidney failure, unspecified Allergies/Procedures Done in Hospital Allergies Sulfa (Sulfonamide Antibiotics) Allergy (Intermediate, Verified 04/07/22 04:09) Hives Type of Care/Length of Stay Estimated LOS: Convalescent Care Less Than 30 days Type of Care Needed: Skilled Rehab Potential: Good Prognosis: Good Additional Orders/Day of Discharge Day of Discharge: 04/13/22 Dietary and Speech Recommendations Dietitian Recommendations/Changes: recommend advance diet as tolerated to cardiac Discharge Plan Admission Admit Date/Time: 04/07/22 04:18 Primary Reason for Your Visit: Acute kidney injury, severe anemia, arthritis, gout Attending Provider: Grzegorz Ortiz Primary Care Provider: Basil Romero Consulting Providers: Kaykay Marshall ; Ernesto Cain ; Sergio Pollard Instructions Patient Instructions: NABILA international student counselor Instructions for Kidney Biopsy Discharge Orders/Prescriptions Prescriptions: New sodium bicarbonate 650 mg Tablet 650 mg PO TID Qty: 0 0RF sennosides-docusate sodium [Stool Softener-Stimulant Laxat] 8.6-50 mg Tablet 2 tab PO BID Qty: 0 0RF polyethylene glycol 3350 17 gram Powder In Packet 17 g PO DAILY Qty: 0 0RF acetaminophen [Tylenol] 325 mg Tablet 650 mg PO Q4H PRN PRN (Reason: Fever, pain 1-10) Qty: 0 0RF albuterol sulfate 2.5 mg /3 mL (0.083 %) Solution For Nebulization 2.5 mg inhalation Q2H PRN PRN (Reason: Dyspnea, wheezing) Qty: 0 0RF allopurinol 100 mg Tablet 100 mg PO TIDCM Qty: 0 0RF Rx Instructions: Uptitrate if kidney function returns to normal. prednisone 10 mg tablet 10 mg PO DAILY Qty: 25 0RF Rx Instructions: 30 mg for 4 days, 20 mg for 4 days, and 10 mg for 5 days Continued potassium chloride 10 mEq tablet extended release 2 tab PO DAILY Label Comments: 2 tablet by mouth once a day sildenafil (pulm.hypertension) 20 mg tablet 1 tab DAILY Label Comments: TAKE 1 TABLET BY MOUTH NEEDED cholecalciferol (vitamin D3) [Vitamin D3] 50 mcg (2,000 unit) tablet 1 tab DAILY Label Comments: 1 tablet by mouth once a day Held losartan 50 mg tablet 1 tab DAILY Hold Instructions: Hold until kidney function returns normal Label Comments: 1 tablet by mouth once a day Discontinued furosemide 40 mg tablet 1 tab BID Label Comments: 1 tablet by mouth twice a day metolazone 5 mg tablet 1 tab DAILY Label Comments: TAKE 1 TABLET BY MOUTH ONCE DAILY Referrals / Follow Up: Basil Romero MD [Primary Care Provider] - Charges/Coding Visit Charges Inpatient E&M: 46883 Disch Hosp
--- NOTE | 2022-04-13 10:48 | PCM.DC.SUM ---
Providers Date of Admission: 04/07/22 Date of Discharge: 04/13/22 Primary Care Physician: Dr. Basil Romero MD Consultations 04/07/22 04:23 Consult: Gastroenterology Routine Consulting Provider: [facility] Reason for Consult: Acute anemia, 12.2-->7.2, guiac neg, recent R TH with normal CT, ? source EMERGENT Consult: No MD Notified: Yes Date Notified: 04/07/22 Time Notified: 06:30 Method of Notification: Text 04/07/22 09:33 Consult: Nephrology Routine Consulting Provider: Ernesto Cain Reason for Consult: MAXI on CKD stage III, Txf from [facility], recent RTHR, worsened after. EMERGENT Consult: No Notified: Yes Date Notified: 04/07/22 Time Notified: 09:33 Method of Notification: Answering Service 04/10/22 07:46 Consult: Interventional Radiology Routine Consulting Provider: Sergio Pollard Reason for Consult: KIDNEY BIOPSY EMERGENT Consult: No MD Notified: Yes Date Notified: 04/10/22 Time Notified: 07:46 Method of Notification: Verbal Comments:: METHOD OF NOTIFICATION VIA [employer] ORDER Reason For Visit: ACUTE KIDNEY INJURY, ANEMIA FUO Diagnosis Discharge Diagnosis (1) MAXI (acute kidney injury): Status: Acute Code(s): N17.9 - Acute kidney failure, unspecified Medications at Discharge Home Medications cholecalciferol (vitamin D3) 50 mcg (2,000 unit) tablet (Vitamin D3) 1 tab DAILY Check with primary doctor 04/07/22 losartan 50 mg tablet 1 tab DAILY Check with primary doctor 04/07/22 potassium chloride 10 mEq tablet,extended release 2 tab PO DAILY Check with primary doctor 04/07/22 sildenafil (pulm.hypertension) 20 mg tablet 1 tab DAILY Check with primary doctor 04/07/22 acetaminophen 325 mg tablet (Tylenol) 650 mg PO Q4H PRN PRN Fever, pain 1-10 #0 tabs 04/13/22 albuterol sulfate 2.5 mg/3 mL (0.083 %) solution for nebulization 2.5 mg (3 mL) inhalation Q2H PRN PRN Dyspnea, wheezing #0 mL 04/13/22 allopurinol 100 mg tablet 100 mg PO TIDCM #0 tabs 08/04/22 ascorbic acid (vitamin C) 500 mg tablet 500 mg PO BID #60 tabs 04/13/22 ferrous sulfate 325 mg (65 mg iron) tablet,delayed release 325 mg PO QODAY #30 tabs 04/13/22 pantoprazole 40 mg tablet,delayed release (Protonix) 40 mg PO DAILY #30 tabs 04/13/22 polyethylene glycol 3350 17 gram oral powder packet 17 g PO DAILY #0 ea 04/13/22 prednisone 10 mg tablet 10 mg PO DAILY #25 tabs 04/13/22 sennosides 8.6 mg-docusate sodium 50 mg tablet (Stool Softener-Stimulant Laxative) 2 tab PO BID #0 tabs 04/13/22 sodium bicarbonate 650 mg tablet 650 mg PO TID #0 tabs 04/13/22 Hospital Course Summary of Care Provided Hospital Course: This is a 61-year-old patient woman admitted directly from ED for multiple acute issues including shortness of breath, dyspnea on mild exertion, low-grade fever, generalized weakness and swelling, severe anemia and acute kidney injury on CKD: 1.? Acute normocytic normochromic anemia with history of chronic anemia: In ED, hemoglobin 7.2, MCV 84, platelet 560,000.? Patient has mild hematuria.? Stool for occult blood negative.? Patient had 1 unit of PRBC transfusion in [facility]. labs CBC CMP are ordered.? GI is consulted.? No prior history of GI bleed, PUD or chronic GI condition.? Protonix 40 mg IV twice daily. Iron profile suggestive of anemia of chronic disease/chronic kidney disease.? Immature reticulocyte fraction high.? Patient given IV iron.? Underwent EGD which shows erythematous mucosa and duodenopathy.? Continue PPI. Patient hemoglobin usually between 7 to 8 g but dropped to 7.1 g on 04/12 and 1 unit of PRBC transfusion was done this for total 2 units transfusion. Repeat hemoglobin 7.9 g/dL. 2.? Acute kidney injury on CKD stage III, unclear type: Suspected mostly due to diuretic furosemide, anemia or related to recent surgery.? Admission BUN/creatinine 50/4.7, prior baseline about 1.8-2.3.? IV fluid, hold nephrotoxic medications.? Renal and bladder ultrasound.? Urine random sodium 30. Kidney and bladder ultrasound done reported normal size of kidneys.? Distended neobladder 168 mL.? Normal wall thickness.? No mass. Kidney and bladder ultrasound done reported normal size of kidneys.? Distended neobladder 168 mL.? Normal wall thickness.? No mass.? Economic Specialist is consulted 04/08: Discussed with the litigation docket manager and he discussed with pathologist although pathology report is not available. Still patient has IgA nephropathy. Patient had similar episode of hematuria about a year ago so probably has history of IgA nephropathy with flareup. Continue bicarb. Patient kidney function is persistently improving and patient making about 2 to 4 L of urine daily. Continue prednisone for gout prophylaxis but also for IgA nephropathy flareup too. Monitor kidney function, BMP twice a week in TCU. Continue follow-up with litigation docket manager 3. ? Acute on chronic HFpEF due to morbid obesity and hypertension, nonischemic cardiomyopathy.: 2D echo is ordered. venous duplex of lower extremity negative for DVT.? Patient has sinus tachycardia.? VQ scan ordered. Modified Wells criteria for PE calculated, 3.0 moderate risk 2.? BNP 179 04/08: VQ scan reported normal.? Venous duplex upper extremities ordered. 04/09: Venous duplex of right upper extremity reported normal with no evidence of DVT or superficial thrombophlebitis of basilic vein or cephalin veins. 04/10: Echo EF 60%.? Technically difficult study.? Probably, patient has acute on chronic HFpEF 04/13: Patient is having good spontaneous diuresis. 4.? Low-grade fever unclear etiology possible gout exacerbation, UTI ruled out: Patient does not have clear-cut focus of infection.? UA shows WBC 11-15, 1+ urine bacteria nitrite negative, LE 25.? As per , his fever is less than 100 Fahrenheit at home.? Patient has history of gout.? Started on Solu-Medrol 40 mg 1 dose and then prednisone 40 mg daily from tomorrow and low-dose allopurinol 100 mg daily.? Patient has leukocytosis 12.7 thousand with left shift but may be from inflammatory reason.? Chest x-ray right basilar atelectasis with no acute cardiopulmonary findings.? CT with right hip showed no evidence of fluid collections, abscess or seroma.? Mild right hip stranding.? Patient had IV Rocephin 2 g empirically from ED physician.? Repeat chest x-ray.? Continue empiric ceftriaxone 2 g daily.? Patient is vaccinated boosted with COVID-19. Uric acid is high. Phosphorus 5.9. Continue allopurinol dose increased 100 mg twice daily. 5.? Hypertension: Blood pressure in normal range. 6.? Recent right hip replacement: PT and OT ordered. 7.? Morbid obesity: BMI 42.4 kg/m?.? V Groove Cutter consult.? Weight loss counseling done. Total time spent in [id number] encounter with history taking, physical exam, labs review, review of imaging and discussion of assessment and plan with the patient: 50 minutes patient has severe pain in left knee more than right knee. X-ray of left knee shows tricompartmental arthritis. VTE prophylaxis: Pharmacological pulse contraindicated in view of acute anemia.? Bilateral SCDs discontinue if platelet count drops less than 50,000 or hemoglobin less than 8 g% Discharge medication reconciliation done. Discharge follow-up instructions completed. Discharge process discussed with the patient and all questions were answered to patient's satisfaction. Discharged to TCU Total time spent, exact 35 minutes on discharge meds reconciliation, examination, coordination of care with nurses and ancillary staff, review of imaging and blood test and discussion with the patient on follow-up instructions. Weight / BMI Weight Weight: 300 lb 4.313 oz Body Mass Index (BMI) 43.5 ABG / Lab / Microbiology Data Result Diagrams: 04/13/22 06:20 04/13/22 06:20 Laboratory: Laboratory Results - last 24 hr 04/13/22 06:20: Sodium 137, Potassium 3.4 L, Chloride 105, Carbon Dioxide 23.0, Anion Gap 9, BUN 70 H, Creatinine 2.84 H, Estim Creat Clear Calc 27.85, Est GFR (MDRD) Af Amer 29 L, Est GFR (MDRD) Non-Af 24 L, BUN/Creatinine Ratio 24.6 H, Glucose 88, Calcium 8.9 04/13/22 06:20: WBC 17.8 H, RBC 2.82 L, Hgb 7.9 L, Hct 24.5 L, MCV 86.9, MCH 28.0, MCHC 32.2, RDW Std Deviation 50.4 H, RDW Coeff of Singh 16.0 H, Plt Count 492 H, MPV 8.3, Neut % (Auto) Not Reportable, Absolute Neuts (auto) 12.5 H, Absolute Lymphs (auto) 2.27, Total Counted 100, Neutrophils % (Manual) 70, Band Neutrophils % 0, Lymphocytes % (Manual) 15 L, Monocytes % (Manual) 3, Eosinophils % (Manual) 1, Metamyelocytes % 3 H, Myelocytes % 8 H, Diff Path Review Reviewed, Platelet Estimate SLT INC, Hypochromasia 1+, Anisocytosis RARE, Microcytosis RARE 04/13/22 06:20: Uric Acid 9.3 H, Total Bilirubin 0.40, Direct Bilirubin 0.15, AST 30, ALT 39, Alkaline Phosphatase 125 H, Total Protein 5.8 L, Albumin 1.8 L, Globulin 4.0 Microbiology: Microbiology 04/13/22 09:55 Nasal Secretion SARS-CoV-2 Antigen (Rapid) - Final 04/07/22 14:00 Blood Culture (Wb) - Right Hand Blood Culture - Final No growth in 5 days. 04/07/22 13:50 Blood Culture (Wb) - Right Forearm Blood Culture - Final No growth in 5 days. 04/07/22 10:24 Urine, Clean Catch Urine Culture - Final Culture exhibits no growth. 04/09/22 03:45 Stool Stool Occult Blood (JOVAN) - Final 04/07/22 14:10 Mucosa - Nasopharyngeal Respiratory Panel (PCR) - Final Radiography Diagnostic Testing: Radiology Impression Knee X-Ray 04/13/22 12:50 IMPRESSION: Tricompartmental osteophytic changes, no evidence of acute osseous abnormality is seen. Electronically Signed: Rogelio Lowery MD at 13:20 EDT Reading Location ID and State: [facility] / [place] Tel , Service support , Meaningful Use Info Meaningful Use Diagnoses (Choose all that apply): None applicable Discharge Plan Admission Admit Date/Time: 04/07/22 04:18 Primary Reason for Your Visit: Acute kidney injury, severe anemia, arthritis, gout Attending Provider: Grzegorz Ortiz Primary Care Provider: Basil Romero Consulting Providers: Kaykay Marshall ; Ernesto Cain ; Sergio Pollard Instructions Patient Instructions: RAD supervisor pit and auxiliaries Instructions for Kidney Biopsy Discharge Orders/Prescriptions Prescriptions: New sodium bicarbonate 650 mg Tablet 650 mg PO TID Qty: 0 0RF sennosides-docusate sodium [Stool Softener-Stimulant Laxat] 8.6-50 mg Tablet 2 tab PO BID Qty: 0 0RF polyethylene glycol 3350 17 gram Powder In Packet 17 g PO DAILY Qty: 0 0RF acetaminophen [Tylenol] 325 mg Tablet 650 mg PO Q4H PRN PRN (Reason: Fever, pain 1-10) Qty: 0 0RF albuterol sulfate 2.5 mg /3 mL (0.083 %) Solution For Nebulization 2.5 mg inhalation Q2H PRN PRN (Reason: Dyspnea, wheezing) Qty: 0 0RF allopurinol 100 mg Tablet 100 mg PO TIDCM Qty: 0 0RF Rx Instructions: Uptitrate if kidney function returns to normal. prednisone 10 mg tablet 10 mg PO DAILY Qty: 25 0RF Rx Instructions: 30 mg for 4 days, 20 mg for 4 days, and 10 mg for 5 days ascorbic acid (vitamin C) 500 mg tablet 500 mg PO BID Qty: 60 0RF ferrous sulfate 325 mg (65 mg iron) tablet,delayed release (DR/EC) 325 mg PO QODAY Qty: 30 0RF pantoprazole [Protonix] 40 mg tablet,delayed release (DR/EC) 40 mg PO DAILY Qty: 30 0RF Continued potassium chloride 10 mEq tablet extended release 2 tab PO DAILY Label Comments: 2 tablet by mouth once a day sildenafil (pulm.hypertension) 20 mg tablet 1 tab DAILY Label Comments: TAKE 1 TABLET BY MOUTH NEEDED cholecalciferol (vitamin D3) [Vitamin D3] 50 mcg (2,000 unit) tablet 1 tab DAILY Label Comments: 1 tablet by mouth once a day Held losartan 50 mg tablet 1 tab DAILY Hold Instructions: Hold until kidney function returns normal Label Comments: 1 tablet by mouth once a day Discontinued furosemide 40 mg tablet 1 tab BID Label Comments: 1 tablet by mouth twice a day metolazone 5 mg tablet 1 tab DAILY Label Comments: TAKE 1 TABLET BY MOUTH ONCE DAILY Referrals / Follow Up: Nany Spencer MD [Med Staff - Consulting] - Within 2 Weeks Basil Romero MD [Primary Care Provider] - In 1 Week Disposition Disposition (needs filled in before D/C Order can be placed): Home, Self Care Charges/Coding Visit Charges Inpatient E&M: 15690 Disch Hosp
--- NOTE | 2022-04-13 12:19 | CASEMGMT ---
Social Work Note SW updated pt and pt's family that pt has been approved for TCU and will discharge to TCU today. Pt and pt's family state understanding. Plan: TCU today Mikaela Weston MSW, TELEGRAPH EQUIPMENT MAINTAINER
--- NOTE | 2022-04-13 12:50 | RAD_ITS ---
INDICATION: pain -- bad arthritis EXAMINATION/TECHNIQUE: X-RAY - LEFT XR Knee 3 Views 3 VIEWS COMPARISON: None. FINDINGS: Severe narrowing of the medial joint space, mild to moderate narrowing of the lateral joint space, moderate narrowing of the patellofemoral joint space is seen. Degenerative changes and spur formation is visualized. No evidence of cortical irregularity or lucency to suggest a fracture, no evidence of lytic sclerotic bone lesion is seen. Small suprapatellar effusion is seen. Unremarkable alignment of the quadriceps and patellar tendons. RAD/Knee 3 Views IMPRESSION: Tricompartmental osteophytic changes, no evidence of acute osseous abnormality is seen. Electronically Signed: Rogelio Lowery MD at 13:20 EDT ,
[2022-04-13 12:52] LABS: Pathologist Review Reviewed
--- NOTE | 2022-04-13 13:38 | PCM.PN.REN ---
Subjective Subjective No new events. Gross hematuria has resolved. Still complains of pain in the left knee. Likely gout. Objective Data Objective Data Vital Signs: Vital Signs Temp Pulse Resp BP Pulse Ox O2 Del Method O2 Flow Rate 98.3 F 121 H 16 143/80 H 96 Room Air 2 04/13/22 08:53 04/13/22 08:53 04/13/22 08:53 04/13/22 08:53 04/13/22 08:53 04/13/22 08:53 04/09/22 10:50 Oxygen Flow Rate (L/min) 2 Oxygen Delivery Method [1150] Room Air Oxygen Delivery Method [1145] Room Air Oxygen Delivery Method [10] Room Air Oxygen Delivery Method [9] Room Air Oxygen Delivery Method [8] Room Air Oxygen Delivery Method [7] Room Air Oxygen Delivery Method [6] Room Air Oxygen Delivery Method [5] Room Air Oxygen Delivery Method [4] Room Air Oxygen Delivery Method [3] Room Air Oxygen Delivery Method [2] Room Air Oxygen Delivery Method [1 ( Room Air Initial Baseline)] Oxygen Delivery Method Room Air Weight: 136.2 kg Body Mass Index (BMI) 43.5 Intake & Output: Intake and Output for Last 24 Hours 04/11/22 04/12/22 04/13/22 23:59 23:59 23:59 Intake Total 1160 / 1160 1485.84 / 1485.84 300 / 300 Output Total 2100 / 2850 3850 / 4150 1150 / 1150 Balance -940 / -1690 -2364.16 / -2664.16 -850 / -850 Lab / Micro Data Result Diagrams: 04/13/22 06:20 04/13/22 06:20 Labs: Laboratory Results - last 24 hr 04/13/22 06:20: Sodium 137, Potassium 3.4 L, Chloride 105, Carbon Dioxide 23.0, Anion Gap 9, BUN 70 H, Creatinine 2.84 H, Estim Creat Clear Calc 27.85, Est GFR (MDRD) Af Amer 29 L, Est GFR (MDRD) Non-Af 24 L, BUN/Creatinine Ratio 24.6 H, Glucose 88, Calcium 8.9 04/13/22 06:20: WBC 17.8 H, RBC 2.82 L, Hgb 7.9 L, Hct 24.5 L, MCV 86.9, MCH 28.0, MCHC 32.2, RDW Std Deviation 50.4 H, RDW Coeff of Singh 16.0 H, Plt Count 492 H, MPV 8.3, Neut % (Auto) Not Reportable, Absolute Neuts (auto) 12.5 H, Absolute Lymphs (auto) 2.27, Total Counted 100, Neutrophils % (Manual) 70, Band Neutrophils % 0, Lymphocytes % (Manual) 15 L, Monocytes % (Manual) 3, Eosinophils % (Manual) 1, Metamyelocytes % 3 H, Myelocytes % 8 H, Diff Path Review Reviewed, Platelet Estimate SLT INC, Hypochromasia 1+, Anisocytosis RARE, Microcytosis RARE 04/13/22 06:20: Uric Acid 9.3 H, Total Bilirubin 0.40, Direct Bilirubin 0.15, AST 30, ALT 39, Alkaline Phosphatase 125 H, Total Protein 5.8 L, Albumin 1.8 L, Globulin 4.0 Micro: Microbiology 04/13/22 09:55 Nasal Secretion SARS-CoV-2 Antigen (Rapid) - Final 04/07/22 14:00 Blood Culture (Wb) - Right Hand Blood Culture - Final No growth in 5 days. 04/07/22 13:50 Blood Culture (Wb) - Right Forearm Blood Culture - Final No growth in 5 days. 04/07/22 10:24 Urine, Clean Catch Urine Culture - Final Culture exhibits no growth. 04/09/22 03:45 Stool Stool Occult Blood (JOVAN) - Final 04/07/22 14:10 Mucosa - Nasopharyngeal Respiratory Panel (PCR) - Final Radiography Diagnostic Testing: Radiology Impression Knee X-Ray 04/13/22 12:50 IMPRESSION: Tricompartmental osteophytic changes, no evidence of acute osseous abnormality is seen. Electronically Signed: Rogelio Lowery MD at 13:20 EDT Reading Location ID and State: [facility] / [place] Tel , Service support , Physical Exam Narrative Alert awake oriented x 3 no obvious distress no pallor no icterus no JVD s1s2 no murmurs lungs clear abdomen soft no organomegaly no edema no cyanosis Assessment & Plan Assessment/Plan (1) MAXI (acute kidney injury): PLAN: As per records, baseline creatinine is around 1.8. Admitted with a creatinine of 4.7, peak 5.2. Most of the serologies are pending. S/p kidney biopsy. Discussed with pathologist yesterday. Likely has IgA nephropathy. On detailed review, it seems he had similar episode of hematuria 1 year ago. At that time it resolved spontaneously. Most likely he has background IgA nephropathy with occasional flares resulting in hematuria and acute renal failure. Given improvement in kidney function, no need for steroids. He is currently on steroids for gout which will likely be continued for 1 to 2 weeks. Advised him that he cannot use naproxen due to renal failure. Explained the course, prognosis, treatment options for IgA nephropathy. All questions answered. He does have about 2.4 g of proteinuria.
[2022-04-13 13:59] VITALS: PULSE 122
[2022-04-13 16:22] LABS: Anti-Glomerular Basement Memb < 0.2 units (0.0-0.9); Complement C3 243 mg/dL (82-167); Cytoplasmic Ab (C-ANCA) <1:20 titer (Neg:<1:20); Free Kappa Light Chains 64.6 mg/L (3.3-19.4); Free Lambda Light Chains 37.4 mg/L (5.7-26.3); PROEL- A/G Ratio 0.6 (0.7-1.7); PROEL- Alpha-1 Globulin 0.6 g/dL (0.0-0.4); PROEL- Alpha-2 Globulin 1.3 g/dL (0.4-1.0); PROEL- Beta Globulin 1.1 g/dL (0.7-1.3); PROEL- Gamma Globulin 0.5 g/dL (0.4-1.8); PROEL- Globulin, Total 3.6 g/dL (2.2-3.9); PROEL- TOTAL PROTEIN 5.6 g/dL (6.0-8.5); Perinuclear Ab (P-ANCA) <1:20 titer (Neg:<1:20)
== END 2022-04-13 17:39 | disposition home or self-care (01) | DRG 682 ==
PROVIDERS: Internal Medicine; Internal Medicine Gastroenterology; Nurse Practitioner Adult Health; Radiology Vascular & Interventional Radiology; Admitting Provider Family Medicine; PCP Internal Medicine Infectious Disease; Referring Provider Family Medicine; Visit Provider Internal Medicine
PROC: 0DJ08ZZ Inspection of Upper Intestinal Tract, Via Natural or Artificial Opening Endoscopic (ICD-10-PCS; CPT 43235; principal; 2022-04-09 09:55)
DX: N17.9 Acute kidney failure, unspecified (principal); I50.33 Acute on chronic diastolic (congestive) heart failure; I42.8 Other cardiomyopathies; E87.2 Acidosis; E87.1 Hypo-osmolality and hyponatremia; I13.0 Hypertensive heart and chronic kidney disease with heart failure and stage 1 through stage 4 chronic kidney disease, or unspecified chronic kidney disease; Z68.41 Body mass index [BMI] 40.0-44.9, adult; D63.1 Anemia in chronic kidney disease; N18.30 Chronic kidney disease, stage 3 unspecified; E66.01 Morbid (severe) obesity due to excess calories; K29.40 Chronic atrophic gastritis without bleeding; M10.9 Gout, unspecified; D50.9 Iron deficiency anemia, unspecified; R50.9 Fever, unspecified; Z79.899 Other long term (current) drug therapy
CPT/HCPCS: 36415; 71045; 73562; 76770; 77012; 78582; 80048; 80053; 80069; 80076; 81001; 82274; 82436; 82550; 82570; 82728; 83520; 83540; 83550; 83880; 83883; 83935; 84100; 84133; 84145; 84156; 84165; 84300; 84484; 84550; 85014; 85018; 85025; 85045; 85610; 85730; 86038; 86160; 86225; 86235; 86256; 86850; 86900; 86901; 86920; 86922; 87040; 87086; 87426; 87633; 87635; 88300; 88305; 88313; 88346; 88348; 88350; 93005; 93306; 93970; 93971; 97110; 97163; 97530; 99251; A9540; A9567; J7030; J7040; J7050; J7120; P9016; Q9957; A4216; C8929; G0463; J0696; J2405; J2916; U0003; U0005

== ENCOUNTER 2022-04-13 17:46 | Inpatient (IN) | payer OTHER, SELFPAY ==
[2022-04-13 18:28] VITALS: BP 135/79; PULSE 111; RESP 19; TEMP 36.4; O2SAT 95; BMI 43.1
[2022-04-13 22:00] VITALS: PULSE 103; RESP 18; O2SAT 97
[2022-04-13] MEDS: Sodium Bicarbonate 650 MG Tablet PO (22:09)
[2022-04-13] MEDS: Acetaminophen 325 MG Tablet 650 MG PO (22:23)
[2022-04-14 05:39] LABS: Hematocrit 26.7 % (40-54); Hemoglobin 8.2 g/dL (13.0-16.5); Mean Corp Hgb Conc 30.7 g/dL (32-36); Mean Corpuscular Hgb 27.2 pg (27.0-32.0); Mean Corpuscular Volume 88.7 fL (80-94); Mean Platelet Vol. 8.2 fl (6.2-12.0); POSITIVE COUNT YES; POSITIVE MORPHOLOGY YES; Platelet Count 513 K/mm3 (150-450); RBC Distribution Width CV 16.4 % (11.6-14.6); RBC Distribution Width SD 52.4 fl (35.1-43.9); Red Blood Count 3.01 M/mm3 (4.6-6.2); White Blood Count 18.5 K/mm3 (4.4-11.0)
[2022-04-14 05:42] LABS: Differential Indicated MANUAL DIFF
[2022-04-14] MEDS: Polyethylene Glycol 3350 17 GM PACKET PO (05:43)
[2022-04-14] MEDS: predniSONE 10 MG Tablet 30 MG PO (05:44)
[2022-04-14] MEDS: Cholecalciferol (VIT D3) 25 MCG TABLET (1,000 UNITS) 50 MCG PO (05:44)
[2022-04-14] MEDS: Ascorbic Acid 500 MG Tablet PO ×2 (05:44→17:07)
[2022-04-14] MEDS: Sodium Bicarbonate 650 MG Tablet PO ×2 (05:44→13:54)
[2022-04-14] MEDS: Pantoprazole Sodium 40 MG Tablet PO (05:45)
[2022-04-14] MEDS: Senna/Docusate Sodium 1 Tablet 2 TABLET PO ×2 (05:45→17:07)
[2022-04-14] MEDS: Acetaminophen 325 MG Tablet 650 MG PO (05:48)
[2022-04-14 06:03] LABS: Anion Gap 7 (5-15); BUN 61 mg/dL (7-18); BUN/Creat Ratio 23.8 RATIO (10-20); Calcium,Total 8.9 mg/dL (8.5-10.1); Chloride 107 mmol/L (98-107); Creatinine, Serum 2.56 mg/dL (0.70-1.30); EST Glomerular Filtration Rate 27 mL/min (>60); Est Glom Filt Rate - Afr Amer 33 mL/min (>60); Estimated Creatinine Clearance 30.89 ml/min; Glucose 95 mg/dL (74-106); Potassium 3.7 mmol/L (3.5-5.1); Sodium Level 139 mmol/L (136-145)
[2022-04-14 06:04] LABS: Neutrophil-Segmented 73 % (47-70); Total Cells Counted 100 (MANUAL DIFF)
[2022-04-14 06:05] LABS: Lymphocyte 16 % (19-41); Metamyelocyte 2 % (0-1); Monocyte 5 % (0-10); Myelocyte 3 % (0-0); Neutrophil-Band 1 % (0-5); Platelet Estimate SLT INC (ADEQ)
[2022-04-14 06:06] LABS: Absolute Neutrophil Count 13.7 X10^3/uL (2.0-7.7); Anisocytosis RARE; Hypochromasia 1+; Microcytosis RARE; Neutrophil # 13.71 X10^3/uL (2.7-7.7)
[2022-04-14 06:07] LABS: Absolute Lymphocyte Count 2.96 X10^3/uL (0.83-4.51); Lymphocyte # 2.96 X10^3/ul (0.83-4.51)
[2022-04-14] MEDS: Potassium Chloride Oral Tablet 10 MEQ PO (09:32)
[2022-04-14] MEDS: Allopurinol 100 MG Tablet PO ×2 (09:32→12:36)
[2022-04-14] MEDS: Tuberculin,Purif.prot.deriv. 50 TU/ML Vial 0.1 ML ID (09:36)
--- NOTE | 2022-04-14 10:49 | HP.PCM_ITS ---
[facility] General Date of Admission: 04/13/22 Date of Service: 04/14/22 Chief Complaint: Debility secondary to multiple medical conditions including acute on chronic renal failure, acute on chronic congestive heart failure, severe anemia, recent right hip replacement, morbid obesity with generalized weakness. Significant lab at admission included a hemoglobin of 7.2 with an MCV of 84 and elevated platelets at 560,000. Stool for occult blood was negative. He received 1 unit of packed red blood cells at [facility] prior to transfer. He was placed on Protonix 40 twice daily. Mg IV twice daily and Dr. Romero was consulted. BUN and creatinine were 50/40.7 and his baseline is generally 1.8- 2.3. [facility] Narrative GAMA MCCALLUM, is a 61 YO M with a past medical history of chronic renal failure stage III, hypertension, morbid obesity, venous insufficiency, cough and chronic anemia was transferred to [facility] progressive care unit on 04/07/2022 from [facility] for generalized weakness, shortn ess of breath, low-grade fever and generalized weakness for 4 days. In addition he had hematuria. He had a right hip replacement on 03/29/2022. He was started on Lasix 1 year ago by his PCP for edema of the legs. Significant lab at admission included a hemoglobin of 7.2 with an MCV of 84 and elevated platelets at 560,000. Stool for occult blood was negative. He received 1 unit of packed red blood cells at [facility] prior to transfer. He was placed on Protonix 40 twice daily. Mg IV twice daily and Dr. Romero was consulted. BUN and creatinine were 50/40.7 and his baseline is generally 1.8-2.3. In addition to GI nephrology was also consulted. Dr. Romero performed upper endoscopy on 04/09/22 and found localized mildly erythematous mucosa without bleeding in the prepyloric region of the stomach and localized mildly erythematous mucosa without active bleeding and no stigmata of bleeding in the duodenal bulb. Nephrology felt he should be evaluated for acute GN because of gross hematuria in addition to rapid decline in renal function. Appropriate labs were ordered. He had a CT-guided kidney bx on 04/10/22. EARLE screen was negative. C-ANCA was normal at less than 1:20, Kavita 1 antibody was negative and so was SSA, SSB and SM antibodies. Double-stranded DNA antibody was negative glomerular basement membrane antibody was normal at less than 0.2. C3 was elevated at 243, C4 was elevated at 64, free kappa light chain is increased at 64.6 and the free lambda light chain is increased at 37.4. Pathology on the kidney biopsy is still pending. White blood cell count is e levated at 18.5 today with 73% neutrophils and 1 band neutrophil. Hemoglobin is stable at 8.2 and platelets are 513,000. Sodium and potassium and serum bicarb are within normal limits. The BUN is 61 and the creatinine is down to 2.56. A uric acid level during his admission was high at 9.3. LFTs are unremarkable. Albumin is very low at 1.8. The protein/creatinine ratio at admission was 2474. 24-hour protein is about 2.4 g/day. I reviewed the progress note from Dr. Spencer on 04/13/2022 and it states that hematuria had resolved. He felt the left knee pain was likely due to gout. He discussed the pathology from the kidney biopsy with the pathologist and feels he is likely going to be diagnosed with IgA nephropathy. He did not feel steroids were necessary at this time due to the improvement in kidney function and resolution of hematuria. Mr. Mccallum was transferred to the TCU at [facility] on 04/13/22 for generalized weakness and will have PT/OT to strengthen him so that he may return home at [place]. 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 He was recovering from the hip surgery very well until the hematuria and increased creatinine started. [facility] Medical History (Updated 04/14/22 @ 13:[address] Adina Solorzano, ) Chronic anemia Chronic tophaceous gout CKD (chronic kidney disease), stage III HTN (hypertension) Morbid obesity Venous stasis Home Medications cholecalciferol (vitamin D3) 50 mcg (2,000 unit) tablet (Vitamin D3) 1 tab DAILY Supplement 04/07/22 [History Last Taken Unknown] losartan 50 mg tablet 1 tab PO DAILY BP 04/07/22 [History Last Taken Unknown] potassium chloride 10 mEq tablet,extended release 2 tab PO DAILY Supplement 04/07/22 [History Last Taken Unknown] sildenafil (pulm.hypertension) 20 mg tablet 1 tab PO DAILY BP 04/07/22 [History Last Taken Unknown] acetaminophen 325 mg tablet (Tylenol) 650 mg PO Q4H PRN PRN Fever, pain 1-10 #0 tabs 04/13/22 [Rx Last Taken Unknown] albuterol sulfate 2.5 mg/3 mL (0.083 %) solution for nebulization 2.5 mg (3 mL) inhalation Q2H PRN PRN Dyspnea, wheezing #0 mL 04/13/22 [Rx Last Taken Unknown] allopurinol 100 mg tablet 100 mg PO TIDCM Gout 04/13/22 [History Last Taken Unknown] ascorbic acid (vitamin C) 500 mg tablet 500 mg PO BID Supplement 04/13/22 [History Last Taken Unknown] ferrous sulfate 325 mg (65 mg iron) tablet,delayed release 325 mg PO QODAY Supplement 04/13/22 [History Last Taken Unknown] pantoprazole 40 mg tablet,delayed release (Protonix) 40 mg PO DAILY Stomach acid 04/13/22 [History Last Taken Unknown] polyethylene glycol 3350 17 gram oral powder packet 17 g PO DAILY Constipation 04/13/22 [History Last Taken Unknown] prednisone 10 mg tablet 10 mg PO DAILY Steroid 04/13/22 [History Last Taken Unknown] sennosides 8.6 mg-docusate sodium 50 mg tablet (Stool Softener-Stimulant Laxative) 2 tab PO BID Constipation 04/13/22 [History Last Taken Unknown] sodium bicarbonate 650 mg tablet 650 mg PO TID Low sodium 04/13/22 [History Last Taken Unknown] Allergy/AdvReac Type Severity Reaction Status Date / Time Sulfa (Sulfonamide Allergy Intermediate Hives Verified 04/07/22 04:09 Antibiotics) Family History Father Prostate cancer Diabetes Hypertension Grandfather Prostate cancer Mother Diabetes Hypertension Other Colon cancer Surgical History History of right hip replacement History of umbilical hernia repair Social History household members: spouse Smoking Status: Never smoker alcohol intake: never substance use type: does not use ROS Review of Systems ROS Unobtainable: other Details: He is a little slow to answer questions but, his family present in the room say he is much better than at admission to [facility]. Constitutional Constitutional: Reports change in weight and weight gain; Denies anorexia, chills, fatigue, fever(s), night sweats or weakness Eyes Eyes: Denies blurry vision, change in vision, eye pain or loss of vision ENT HEENT: Denies abnormal hearing, dysphagia, headache(s), hearing loss, nasal congestion or sore throat Cardiovascular Cardiovascular: Reports dyspnea on exertion and edema; Denies chest pain, lightheadedness, orthopnea, palpitations, paroxysmal nocturnal dyspnea or syncope Respiratory/Chest Respiratory/Chest: Reports shortness of breath with exertion; Denies cough, dyspnea, shortness of breath at rest or wheezing Gastrointestinal Gastrointestinal: Denies abdominal pain, constipation, diarrhea, dyspepsia, hematemesis, hematochezia, nausea or vomiting Genitourinary Genitourinary: Denies dysuria, hematuria, nocturia, urinary frequency, urinary hesitancy, urinary incontinence or urinary urgency Musculoskeletal Musculoskeletal: Reports joint pain and joint swelling; Denies back pain or neck pain Integumentary Integumentary: Denies bleeding lesions, jaundice, pruritus or rash Neurologic Neurologic: Denies confusion, disequilibrium, dizziness, focal weakness, headache(s), paresthesias, seizures or tremor(s) Psychiatric Psychiatric: Denies anxiety, depression, homicidal ideation or suicidal ideation Endocrine Endocrinology: Denies change in body appearance, polydipsia or polyuria Hematologic/Lymphatic Hematologic/Lymphatic: Denies easy bleeding, easy bruising or lymphadenopathy Allergic/Immunologic Allergic/Immunologic: Denies rhinitis, eczemia or asthma Vital Signs Vital Signs Vital Signs: 04/13/22 18:28 04/13/22 22:00 04/13/22 22:00 Temperature 97.5 F L Temperature Source Temporal Pulse Rate 111 H 103 H Pulse Rhythm Regular Pulse Strength Normal (2+) Normal (2+) Respiratory Rate 19 H 18 Respiratory Effort Normal Non-Labored Respiratory Depth Respiratory Pattern Blood Pressure 135/79 H Blood Pressure Mean 97 Blood Pressure Source Monitor Blood Pressure Position Semi-Fowlers Blood Pressure Location Left Arm Pulse Ox 95 97 Oxygen Delivery Method Room Air Room Air 04/14/22 09:42 Temperature Temperature Source Pulse Rate Pulse Rhythm Regular Pulse Strength Respiratory Rate Respiratory Effort Normal Non-Labored Respiratory Depth Normal Respiratory Pattern Normal Blood Pressure Blood Pressure Mean Blood Pressure Source Blood Pressure Position Blood Pressure Location Pulse Ox Oxygen Delivery Method Room Air Weight Weight: 301 lb 2.423 oz Body Mass Index (BMI) 43.1 Physical Exam Const alert, oriented x3 and no apparent distress Constitutional Narrative: Sitting in the recliner at the bedside. Appears comfortable. A little slow answering questions but appropriate. General Appearance: cooperative and well developed HEENT HEENT Narrative: Mucous membranes are dry Eyes PERRL, EOMs intact bilaterally, conjunctivae normal and no scleral icterus Neck supple Chest Chest: symmetrical chest wall rise Resp normal respiratory effort and clear to auscultation bilaterally Resp Narrative: Diminished in the bases, more likely than not due to body habitus. Effort and Inspection: able to speak in complete sentences Cardio regular rhythm, S1 normal heart sound, S2 normal heart sound, no murmurs, no rub and no gallops Cardio Narrative: Resting HR is elevated as I am listening to him in the low 100's GI GI Narrative: Obese, soft, no guarding with palpation, not distended, not tympanic, normal bowel sounds present, no masses. no CVA tenderness Extremity no calf tenderness Extremity Narrative: Pitting edema of both LE's. Brownish discoloration of the distal lower ext remity secondary to chronic venous. He does not wear compression stockings or Cruzito wraps because he could not get the compression stockings on. 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 Denies aver having any venous stasis ulcers or DVT. He has swelling in the MCP's and wrist on the L and the pain extends into the forearm. He has has swelling in the MCP's of the R wrist also but, The left side is worse. He has tophi on several digits. He is c/o pain in the left knee also. the Left knee is swollen but I do not appreciate any effusion and there is no erythema. there is increased warmth to touch and he does not c/o pain when I palpated the knee. Skin Skin Narrative: brawny discoloration of the skin over the anterior shins BL. No openings in the ski. No compression wraps in place and the legs are dependent. No rashes. Neuro oriented x3, CN's II-XII intact bilaterally, moves all extremities and no focal motor deficits Psych cooperative Psych Narrative: Flat affect. A little slow with thought process. Results Lab / Micro Data Result Diagrams: 04/14/22 05:24 04/14/22 05:24 Labs: Laboratory Results - last 24 hr 04/14/22 05:24: WBC 18.5 H, RBC 3.01 L, Hgb 8.2 L, Hct 26.7 L, MCV 88.7, MCH 27.2, MCHC 30.7 L, RDW Std Deviation 52.4 H, RDW Coeff of Singh 16.4 H, Plt Count 513 H, MPV 8.2, Neut % (Auto) Not Reportable, Absolute Neuts (auto) 13.7 H, Absolute Lymphs (auto) 2.96, Total Counted 100, Neutrophils % (Manual) 73 H, Band Neutrophils % 1, Lymphocytes % (Manual) 16 L, Monocytes % (Manual) 5, Metamyelocytes % 2 H, Myelocytes % 3 H, Diff Path Review May foll, Platelet E stimate SLT INC, Hypochromasia 1+, Anisocytosis RARE, Microcytosis RARE 04/14/22 05:24: Sodium 139, Potassium 3.7, Chloride 107, Carbon Dioxide 25.0, Anion Gap 7, BUN 61 H, Creatinine 2.56 H, Estim Creat Clear Calc 30.89, Est GFR (MDRD) Af Amer 33 L, Est GFR (MDRD) Non-Af 27 L, BUN/Creatinine Ratio 23.8 H, Glucose 95, Calcium 8.9 Assessment & Plan Assessment/Plan (1) Debility: (2) Generalized weakness: (3) MAXI (acute kidney injury): (4) Acute on chronic anemia: (5) Proteinuria: PLAN: 2.4 GM a day (6) Gouty arthritis: PLAN: Acute affecting the BL hands and the Left knee. (7) Chronic tophaceous gout: PLAN: Recommendations for tophaceous gout treatment is to get the uric acid down to 5 or less. (8) Hyperuricemia: PLAN: 9.3 and he has tophi (9) Venous insufficiency (chronic) (peripheral): PLAN: Chronic secondary to morbid obesity and severe proteinuria with hypoalbuminemia and venous insufficiency (10) IgA nephropathy: PLAN: Final path report is still pending but Dr. Spencer discussed with the pathologist yesterday and that is his impression. (11) Thrombocytosis: PLAN: Suspect secondary to acute gouty arthritis/inflammation (12) Hypoalbuminemia: PLAN: < 2 due to severe proteinuria secondary to chronic kidney disease PLAN: Plan PLAN PT for gait stability OT for ADL's Analgesics as needed Bowel protocol Fall precautions Assess for Anxiety/Depression GI prophylaxis with pantoprazole 40 mg daily DVT prophylaxis - gross hematuria has resolved. Will ask Dr. Spencer if it is OK to start Heparin for DVT prophylaxis. Follow up with PCP, orthopedic surgeon, nephrology following DC from [facility] I recommended that he consider following up with a banding machine operator for tophaceous gout. 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 PT agrees. We did not have a bed yesterday in rehab and so he was transferred to TCU......we had a DC today in rehab and there is now an open bed. Will DC the allopurinol started yesterday because the pain is worse today and Allopurinol is contraindicated in acute gouty arthritis because it causes an exacerbation due to fluctuation in the UA level. It is likely that he got gout after the recent hip replacement and in the future he should be pretreated prior to any planned surgeries to prevent acute gout due to tissue breakdown. Start him on a low purine diet and consult the cable assembler and swager to instruct/educate him and his on a low purine diet. Will ask Dr. Spencer whether he wants him on a protein restricted diet. Elevate the legs and provide compression with [address] Spencer if he can now be started on Heparin for DVT prophylaxis since the gross hematuria has resolved and whether or not we should be restricting protein. Charges/Coding Visit Charges Inpatient E&M: 45851 Init Hosp L3
--- NOTE | 2022-04-14 12:23 | CASEMGMT ---
Social Work Met with patient to complete initial assessment. Introduced self and role. Several family members were present and SW offered to return after visit - family/pt agreed. DMITRY notified from admissions nurse that Dr. Solorzano is requesting pt transfer to IRU now that there is a bed available. SW presented to pt room to inquire about pt/family wishes to transfer. Dr. Solorzano present talking to pt/family as well. Pt/Family agreed to transfer. SW explained insurance will need to authorize IRU as well and if denied, pt will remain on TCU. Explained if pt is admitted to IRU, pt is not able to return to TCU or SNF under insurance. Pt/family expressed understanding and still agreed to transfer. SW notified admissions nurse to request precert for IRU. SW to continue to follow. MARLEY LowryW
[2022-04-14 13:15] LABS: Pathologist Review Reviewed
[2022-04-14] MEDS: HYDROcodone Bitartrate/Apap 5/325 Tablet PO (13:54)
[2022-04-14 14:00] VITALS: BP 144/85; PULSE 110; RESP 16; TEMP 36.1; O2SAT 96
--- NOTE | 2022-04-14 16:21 | CASEMGMT ---
Social Work Returned to pt's room and was present with pt. Pt granted permission for SW to complete assessment with present. Verified and updated contacts. Discussed code status and MOLST form. Pt confirms full code. MOLST communicated to , placed in chart. Explained [facility] and continued stays are not guaranteed with each review. The goal is for pt to return to PLOF at return home with . SW to continue to follow for discharge planning. Jackie Wood, BIN FILLER MILK DRIVER
--- NOTE | 2022-04-14 16:41 | NURSING ---
pt was approved by insurance to be admitted to rehab unit, Dr Solorzano updated, new order to DC to Rehab tonight. JOSEF Avendano in rehab updated and will let pt eat supper on TCU before transferring via bed
--- NOTE | 2022-04-14 18:49 | NURSING ---
pt off unit to rehab via bed, at side.
--- NOTE | 2022-04-26 08:36 | MDS.RN ---
Information for the mds was obtained from review of the clinical record, interview of resident, staff, and direct observation of resident's care.
== END 2022-04-14 18:35 | DRG 292 ==
PROVIDERS: Admitting Provider Internal Medicine; PCP Internal Medicine Infectious Disease; Visit Provider Internal Medicine
DX: I13.0 Hypertensive heart and chronic kidney disease with heart failure and stage 1 through stage 4 chronic kidney disease, or unspecified chronic kidney disease (principal); Z68.42 Body mass index [BMI] 45.0-49.9, adult; N18.4 Chronic kidney disease, stage 4 (severe); N02.8 Recurrent and persistent hematuria with other morphologic changes; E88.09 Other disorders of plasma-protein metabolism, not elsewhere classified; E66.01 Morbid (severe) obesity due to excess calories; I50.9 Heart failure, unspecified; M06.4 Inflammatory polyarthropathy; I87.2 Venous insufficiency (chronic) (peripheral); M10.0 Idiopathic gout; D64.9 Anemia, unspecified; R80.9 Proteinuria, unspecified; Z79.899 Other long term (current) drug therapy; Z79.52 Long term (current) use of systemic steroids
CPT/HCPCS: 36415; 80048; 85025; 92610; 97162; 97166; 97530; 97802

== ENCOUNTER 2022-04-14 18:40 | Inpatient (IN) | payer OTHER, SELFPAY ==
[2022-04-14 18:40] VITALS: BP 144/100; PULSE 114; RESP 17; TEMP 36.6; O2SAT 99
[2022-04-14 19:17] VITALS: BP 144/100; PULSE 114; RESP 17; TEMP 36.6; O2SAT 99; BMI 43.2
[2022-04-14 20:13] VITALS: BP 141/91; PULSE 108; RESP 18; TEMP 37.3; O2SAT 98
[2022-04-14] MEDS: Ascorbic Acid 500 MG Tablet PO (22:29)
[2022-04-14] MEDS: Senna/Docusate Sodium 1 Tablet 2 TABLET PO (22:29)
[2022-04-14] MEDS: Acetaminophen 325 MG Tablet 650 MG PO (22:29)
[2022-04-15 07:40] VITALS: BP 138/80; PULSE 112; RESP 18; TEMP 36.8; O2SAT 99
[2022-04-15] MEDS: Polyethylene Glycol 3350 17 GM PACKET PO (08:16)
[2022-04-15] MEDS: Acetaminophen 325 MG Tablet 650 MG PO ×2 (08:16→13:50)
[2022-04-15] MEDS: Allopurinol 100 MG Tablet PO ×3 (08:17→16:56)
[2022-04-15] MEDS: Cholecalciferol (VIT D3) 25 MCG TABLET (1,000 UNITS) 50 MCG PO (08:17)
[2022-04-15] MEDS: Senna/Docusate Sodium 1 Tablet 2 TABLET PO ×2 (08:17→20:27)
[2022-04-15] MEDS: Ascorbic Acid 500 MG Tablet PO ×2 (08:17→20:28)
[2022-04-15] MEDS: Pantoprazole Sodium 40 MG Tablet PO (08:17)
[2022-04-15] MEDS: Losartan Potassium 50 MG Tablet PO (08:17)
[2022-04-15] MEDS: Potassium Chloride Oral Tablet 10 MEQ PO (08:17)
[2022-04-15] MEDS: predniSONE 10 MG Tablet PO (08:18)
[2022-04-15] MEDS: Sodium Bicarbonate 650 MG Tablet PO ×3 (08:18→16:55)
[2022-04-15] MEDS: Ferrous Sulfate 325 MG Tablet PO (12:16)
[2022-04-15] MEDS: oxyCODONE 5 MG Tablet PO (13:50)
--- NOTE | 2022-04-15 14:27 | PCM.PROGNOTE ---
Subjective Subjective Afebrile VSS -heart rates have been increased and have ranged from 108-114 since transfer from the acute hospital floor. Blood pressures are also elevated. Maintaining appropriate oxygen saturation on RA Oral intake is so-so Discussed with nursing - no problems that need addressed Reviewed the PT/OT/ST notes -speech has not picked him up for therapy and he is currently having no problem. Medication list reviewed. All lab from 04/14/2022 was personally reviewed. Path report is still pending. Working diagnosis is IgA nephropathy. He is complaining of pain all over. Oxycodone has been prescribed and he is on Prednisone. Rafael was transferred to acute rehab shortly after he arrived on TCU for 3 hours of therapy daily to restore function/independence at or near his prior level of function. This was discussed with PT and his insurance company prior to the transfer. Objective Data Objective Data Vital Signs: Vital Signs Temp Pulse Resp BP Pulse Ox O2 Del Method 98.3 F 112 H 18 138/80 H 99 Room Air 04/15/22 07:40 04/15/22 07:40 04/15/22 07:40 04/15/22 07:40 04/15/22 07:40 04/15/22 07:40 Oxygen Delivery Method Room Air Weight: 302 lb 1.591 oz Body Mass Index (BMI) 43.2 Intake & Output: Intake and Output for Last 24 Hours 04/13/22 04/14/22 04/15/22 23:59 23:59 23:59 Intake Total 600 / 600 Output Total 200 / 400 1750 / 1750 Balance -200 / -400 -1150 / -1150 Lab / Micro Data Result Diagrams: 04/17/22 05:37 04/17/22 05:37 Physical Exam Const Constitutional Narrative: He is sitting up in the chair and working with therapy. He is more alert today and interactive. He was smiling and laughed a few times. He is appropriate and cooperative. I started Oxycodone 5 mg Q6H PRN and he is more comfortable and able to do PT/OT now. Resp normal respiratory effort Resp Narrative: Breath sounds are diminished in the bases but there are no rales and no wheezes. Cardio regular rhythm, no rub and no gallops Cardio Narrative: Resting heart rate is on the high side. GI normal to inspection, nondistended, normoactive bowel sounds, soft to palpation and non-tender GI Narrative: No guarding with palpation Extremity no calf tenderness General Extremity: edema bilateral Skin General Skin Exam: no breakdown Rashes: no rashes Assessment & Plan Assessment/Plan (1) Debility: PLAN: Continue PT/OT (2) MAXI (acute kidney injury): PLAN: Resolving (3) Gouty arthritis: (4) Chronic tophaceous gout: (5) IgA nephropathy: (6) CKD (chronic kidney disease), stage III: PLAN: Plan 1. Continue therapy. Will need to extend his time off work to recover from this hospital admission. 2. Continue to monitor the Creat. 3. Oxycodone 5 mg as needed pain greater than 3. 4. Recheck lab on Sunday. Charges/Coding Visit Charges Inpatient E&M: 26283 Subs Hosp L2
[2022-04-15] MEDS: SILDENAFIL CITRATE 20 MG TABLET PO (15:41)
[2022-04-15 20:15] VITALS: BP 122/78; PULSE 110; RESP 16; TEMP 36.7; O2SAT 96
[2022-04-16] MEDS: oxyCODONE 5 MG Tablet PO ×2 (05:24→11:39)
[2022-04-16] MEDS: Acetaminophen 325 MG Tablet 650 MG PO ×2 (05:24→11:39)
[2022-04-16] MEDS: predniSONE 10 MG Tablet PO (07:45)
[2022-04-16] MEDS: Sodium Bicarbonate 650 MG Tablet PO ×3 (07:45→17:08)
[2022-04-16] MEDS: Potassium Chloride Oral Tablet 10 MEQ PO (07:45)
[2022-04-16] MEDS: Allopurinol 100 MG Tablet PO ×3 (07:46→17:08)
[2022-04-16] MEDS: Pantoprazole Sodium 40 MG Tablet PO (07:46)
[2022-04-16] MEDS: SILDENAFIL CITRATE 20 MG TABLET PO (07:46)
[2022-04-16] MEDS: Senna/Docusate Sodium 1 Tablet 2 TABLET PO (07:47)
[2022-04-16] MEDS: Cholecalciferol (VIT D3) 25 MCG TABLET (1,000 UNITS) 50 MCG PO (07:47)
[2022-04-16] MEDS: Ascorbic Acid 500 MG Tablet PO ×2 (07:47→20:03)
[2022-04-16 07:48] VITALS: BP 146/80; PULSE 104; RESP 18; TEMP 36.8; O2SAT 97
[2022-04-16] MEDS: Polyethylene Glycol 3350 17 GM PACKET PO (07:48)
[2022-04-16 19:28] VITALS: BP 131/73; PULSE 110; RESP 14; TEMP 36.9; O2SAT 97
[2022-04-16 19:55] VITALS: PULSE 110; RESP 14; O2SAT 97
--- NOTE | 2022-04-17 03:00 | NURSING ---
Reviewed and agree with ROTARY OPERATOR documentation and assessment charting.
[2022-04-17 05:45] LABS: Hematocrit 25.6 % (40-54); Mean Corp Hgb Conc 31.3 g/dL (32-36); Mean Corpuscular Hgb 28.5 pg (27.0-32.0); Mean Corpuscular Volume 91.1 fL (80-94); Mean Platelet Vol. 8.3 fl (6.2-12.0); POSITIVE COUNT YES; POSITIVE MORPHOLOGY YES; Platelet Count 391 K/mm3 (150-450); RBC Distribution Width CV 16.9 % (11.6-14.6); RBC Distribution Width SD 56.5 fl (35.1-43.9); Red Blood Count 2.81 M/mm3 (4.6-6.2); White Blood Count 16.2 K/mm3 (4.4-11.0)
[2022-04-17 05:52] LABS: Differential Indicated MANUAL DIFF
[2022-04-17 06:10] LABS: BUN 52 mg/dL (7-18); BUN/Creat Ratio 32.1 RATIO (10-20); Calcium,Total 8.4 mg/dL (8.5-10.1); Chloride 107 mmol/L (98-107); Creatinine, Serum 1.62 mg/dL (0.70-1.30); EST Glomerular Filtration Rate 46 mL/min (>60); Est Glom Filt Rate - Afr Amer 56 mL/min (>60); Estimated Creatinine Clearance 48.82 ml/min; Glucose 88 mg/dL (74-106); Magnesium 1.5 mg/dL (1.6-2.6); Phosphorus 2.7 mg/dL (2.5-4.9); Potassium 3.8 mmol/L (3.5-5.1); Sodium Level 139 mmol/L (136-145)
[2022-04-17 06:14] LABS: Anisocytosis 2+; Platelet Estimate ADEQUATE (ADEQ)
[2022-04-17 06:17] LABS: Absolute Lymphocyte Count 2.75 X10^3/uL (0.83-4.51); Absolute Neutrophil Count 11.1 X10^3/uL (2.0-7.7); Eosinophil 1 % (0-5); Lymphocyte 17 % (19-41); Metamyelocyte 2 % (0-1); Monocyte 3 % (0-10); Myelocyte 8 % (0-0); Neutrophil-Segmented 69 % (47-70); Total Cells Counted 100 (MANUAL DIFF)
[2022-04-17] MEDS: Acetaminophen 325 MG Tablet 650 MG PO ×2 (06:34→12:31)
[2022-04-17] MEDS: oxyCODONE 5 MG Tablet PO ×2 (06:34→12:34)
[2022-04-17] MEDS: Ascorbic Acid 500 MG Tablet PO ×2 (08:42→20:07)
[2022-04-17] MEDS: Allopurinol 100 MG Tablet PO (08:42)
[2022-04-17] MEDS: Cholecalciferol (VIT D3) 25 MCG TABLET (1,000 UNITS) 50 MCG PO (08:42)
[2022-04-17] MEDS: Pantoprazole Sodium 40 MG Tablet PO (08:42)
[2022-04-17] MEDS: Sodium Bicarbonate 650 MG Tablet PO ×3 (08:42→16:35)
[2022-04-17] MEDS: predniSONE 10 MG Tablet PO (08:42)
[2022-04-17] MEDS: SILDENAFIL CITRATE 20 MG TABLET PO (08:43)
[2022-04-17] MEDS: Potassium Chloride Oral Tablet 10 MEQ PO (08:43)
[2022-04-17 10:00] VITALS: BP 142/91; PULSE 104; RESP 18; TEMP 36.4; O2SAT 98
--- NOTE | 2022-04-17 10:11 | PCM.PROGNOTE ---
Subjective Subjective Afebrile VSS -resting heart rate has ranged from 10 4-1 14 over the past few days. Blood pressure is stable and has come down from admission to rehab. Maintaining appropriate oxygen saturation on RA Oral intake is approximately 1300 to 1400 cc daily. Urine output has exceeded his intake every day. Discussed with nursing - no problems that need addressed Reviewed the PT/OT/ST notes Medication list reviewed. Has been taking the Oxycodone about twice a day. Allopurinol was stopped when he presented to TCU. Somehow in the transfer to rehab nursing restarted? Will discontinue again. Continue the Prednisone taper. All lab was personally reviewed. The white blood cell count is elevated at 16.2 however he is on steroids and this is the likely etiology of the leukocytosis. Hemoglobin is stable at 8. Platelet count is now within normal limits. Sodium and potassium are within normal limits. The BUN is down to 52 and the creatinine is now 1.62 with his baseline previously 1.8. GFR is now 46 which is consistent with chronic renal failure stage IIIa. Magnesium is low at 1.5 and the phosphorus is normal. Calcium corrected for hypoalbuminemia is within normal limits. Objective Data Objective Data Vital Signs: Vital Signs Temp Pulse Resp BP Pulse Ox O2 Del Method 98.5 F 110 H 14 131/73 H 97 Room Air 04/16/22 19:28 04/16/22 19:55 04/16/22 19:55 04/16/22 19:28 04/16/22 19:55 04/16/22 19:55 Oxygen Delivery Method Room Air Weight: 302 lb 1.591 oz Body Mass Index (BMI) 43.2 Intake & Output: Intake and Output for Last 24 Hours 04/15/22 04/16/22 04/17/22 23:59 23:59 23:59 Intake Total 1310 / 1310 1300 / 1300 240 / 240 Output Total 2400 / 2600 1625 / 1625 575 / 575 Balance -1090 / -1290 -325 / -325 -335 / -335 Lab / Micro Data Result Diagrams: 04/17/22 05:37 04/17/22 05:37 Labs: Laboratory Results - last 24 hr 04/17/22 05:37: Sodium 139, Potassium 3.8, Chloride 107, Carbon Dioxide 25.0, BUN 52 H, Creatinine 1.62 H, Estim Creat Clear Calc 48.82, Est GFR (MDRD) Af Amer 56 L, Est GFR (MDRD) Non-Af 46 L, BUN/Creatinine Ratio 32.1 H, Glucose 88, Calcium 8.4 L, Phosphorus 2.7, Magnesium 1.5 L, Albumin 2.0 L 04/17/22 05:37: WBC 16.2 H, RBC 2.81 L, Hgb 8.0 L, Hct 25.6 L, MCV 91.1, MCH 28.5, MCHC 31.3 L, RDW Std Deviation 56.5 H, RDW Coeff of Singh 16.9 H, Plt Count 391, MPV 8.3, Neut % (Auto) Not Reportable, Absolute Neuts (auto) 11.1 H, Absolute Lymphs (auto) 2.75, Total Counted 100, Neutrophils % (Manual) 69, Lymphocytes % (Manual) 17 L, Monocytes % (Manual) 3, Eosinophils % (Manual) 1, Metamyelocytes % 2 H, Myelocytes % 8 H, Diff Path Review May foll, Platelet Estimate ADEQUATE, Anisocytosis 2+ Physical Exam Const alert and no apparent distress Constitutional Narrative: appears despondent. Sitting in the recliner at the bedside. Resp clear to auscultation bilaterally Resp Narrative: Diminished in the bases Cardio regular rate, regular rhythm and no gallops GI normal to inspection, nondistended, normoactive bowel sounds, soft to palpation and non-tender GI Narrative: No guarding with palpation. Extremity no calf tenderness Extremity Narrative: edema of the legs is improving and he has he legs elevated Skin General Skin Exam: no breakdown Rashes: no rashes Neuro CN's II-XII intact bilaterally, no focal motor deficits and no sensory deficits noted Psych cooperative Psych Narrative: Depressed affect. Not making eye contact with me unless I ask him to look at me. Tells me that he is not sleeping well and he feels depressed. He is fixated on being diagnosed with IGA nephropathy and does not know how this will impact the rest of his life. Worried he will be chronically ill and disabled. Appearance: appropriate Assessment & Plan Assessment/Plan (1) Debility: (2) Generalized weakness: (3) IgA nephropathy: (4) MAXI (acute kidney injury): PLAN: Creatinine continues to improve. No need for diuretic at this time. He is diuresing without medication. (5) Acute on chronic anemia: PLAN: Hemoglobin is stable. We will repeat in 1 week. (6) Gouty arthritis: PLAN: Improving. Will need to start a medication to lower the UA after the acute gouty arthritis resolved. Goal for the UA is 5 or less due to the presence of tophi. (7) Depression: (8) Tachycardia: (9) Hyperuricemia: PLAN: 1. Start him on Sertraline 50 mg p.o. daily. 2. Start trazodone 100 mg p.o. nightly for insomnia 3. Continue prednisone for treatment of acute gouty arthritis. 4. Continue PT/OT 5. 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 Charges/Coding Visit Charges Inpatient E&M: 80326 Subs Hosp L2
[2022-04-17] MEDS: Ferrous Sulfate 325 MG Tablet PO (11:41)
[2022-04-17] MEDS: 0.9% Saline Lock 10 ML Syringe IV ×4 (11:42→20:09)
[2022-04-17] MEDS: Magnesium Sulfate 4gm/100mL 4 GM/100 ML IV.SOLN. IV (12:11)
[2022-04-17 12:26] LABS: Pathologist Review Reviewed
[2022-04-17] MEDS: Sertraline 50 MG Tablet PO (15:30)
--- NOTE | 2022-04-17 16:36 | CASEMGMT ---
Social Work See attached assessment for complete details. This social psychologist educated patient on insurance update process with next insurance update on 04/24/2022 with no guarantee of continued stay approval. Patient voiced understanding. Patient aware of team meeting on . Patient spouse updated on insurance update process and team meeting information as well. Social Work to continue to follow. Moise ROACH, CONI-S
[2022-04-17 19:21] VITALS: BP 155/94; PULSE 95; RESP 14; TEMP 36.6; O2SAT 98
[2022-04-17 19:30] VITALS: PULSE 95; RESP 14; O2SAT 98
[2022-04-17] MEDS: Senna/Docusate Sodium 1 Tablet 2 TABLET PO (20:06)
[2022-04-17] MEDS: traZODone 100 MG Tablet PO (20:06)
[2022-04-17 21:00] VITALS: BP 135/78
--- NOTE | 2022-04-18 01:32 | NURSING ---
Reviewed and agree with YARN TESTER documentation and assessment charting.
[2022-04-18] MEDS: Magnesium Chloride 64 MG Delay Rel.Tablet 128 MG PO ×3 (06:24→21:42)
[2022-04-18 07:25] VITALS: BP 140/92; PULSE 103; RESP 16; TEMP 36.7; O2SAT 98
[2022-04-18] MEDS: Potassium Chloride Oral Tablet 10 MEQ PO (07:54)
[2022-04-18] MEDS: Sodium Bicarbonate 650 MG Tablet PO ×3 (07:55→17:34)
[2022-04-18] MEDS: predniSONE 10 MG Tablet PO (07:55)
[2022-04-18] MEDS: SILDENAFIL CITRATE 20 MG TABLET PO (07:56)
[2022-04-18] MEDS: Pantoprazole Sodium 40 MG Tablet PO (07:56)
[2022-04-18] MEDS: Ascorbic Acid 500 MG Tablet PO ×2 (07:57→21:42)
[2022-04-18] MEDS: Senna/Docusate Sodium 1 Tablet 2 TABLET PO ×2 (07:57→21:42)
[2022-04-18] MEDS: Sertraline 50 MG Tablet PO (07:58)
[2022-04-18] MEDS: oxyCODONE 5 MG Tablet PO ×2 (07:58→14:50)
[2022-04-18] MEDS: Acetaminophen 325 MG Tablet 650 MG PO ×2 (07:58→14:50)
[2022-04-18] MEDS: Cholecalciferol (VIT D3) 25 MCG TABLET (1,000 UNITS) 50 MCG PO (08:00)
[2022-04-18] MEDS: 0.9% Saline Lock 10 ML Syringe IV ×2 (08:02→21:42)
[2022-04-18 19:44] VITALS: BP 127/76; PULSE 81; RESP 20; TEMP 36.6; O2SAT 98
[2022-04-18] MEDS: traZODone 100 MG Tablet PO (21:42)
[2022-04-19 07:45] VITALS: BP 134/85; PULSE 99; RESP 16; TEMP 36.7; O2SAT 99
[2022-04-19] MEDS: oxyCODONE 5 MG Tablet PO (07:54)
[2022-04-19] MEDS: Sodium Bicarbonate 650 MG Tablet PO ×3 (07:55→16:00)
[2022-04-19] MEDS: predniSONE 10 MG Tablet PO (07:56)
[2022-04-19] MEDS: Potassium Chloride Oral Tablet 10 MEQ PO (07:56)
[2022-04-19] MEDS: Acetaminophen 325 MG Tablet 650 MG PO (07:58)
[2022-04-19] MEDS: Magnesium Chloride 64 MG Delay Rel.Tablet 128 MG PO ×2 (10:06→21:00)
[2022-04-19] MEDS: Pantoprazole Sodium 40 MG Tablet PO (10:07)
[2022-04-19] MEDS: Senna/Docusate Sodium 1 Tablet 2 TABLET PO ×2 (10:07→21:00)
[2022-04-19] MEDS: SILDENAFIL CITRATE 20 MG TABLET PO (10:07)
[2022-04-19] MEDS: Ascorbic Acid 500 MG Tablet PO ×2 (10:07→21:00)
[2022-04-19] MEDS: Sertraline 50 MG Tablet PO (10:08)
[2022-04-19] MEDS: Cholecalciferol (VIT D3) 25 MCG TABLET (1,000 UNITS) 50 MCG PO (10:12)
[2022-04-19] MEDS: Ferrous Sulfate 325 MG Tablet PO (11:50)
--- NOTE | 2022-04-19 14:57 | PN_ITS ---
Subjective Subjective Afebrile VSS Maintaining appropriate oxygen saturation on RA Oral intake - better fluid intake and he ate 75-100% of his diet at lunch and 75 to 100% of his breakfast. Discussed with nursing - no problems that need addressed Reviewed the PT/OT notes Medication list reviewed. Tells me that he slept well last night. He is making better eye contact with me today. I gave him a article on the basics of IgA nephropathy to read and I will discuss with him tomorrow. He will share it with his . He is still c/o pain all over. The swelling and redness in the hands is better. Still asking for Oxycodone only 2 X's a day. Biggest complaint is left knee pain. No CP, SOB, lightheadedness, dysuria, tremors, Nausea, vomiting, abd pain. Denies hematuria. Objective Data Objective Data Vital Signs: Vital Signs Temp Pulse Resp BP Pulse Ox O2 Del Method 98.0 F 99 16 134/85 H 99 Room Air 04/19/22 07:45 04/19/22 07:45 04/19/22 07:45 04/19/22 07:45 04/19/22 07:45 04/19/22 07:45 Oxygen Delivery Method Room Air Weight: 304 lb 14.389 oz Body Mass Index (BMI) 43.2 Intake & Output: Intake and Output for Last 24 Hours 04/17/22 04/18/22 04/19/22 23:59 23:59 23:59 Intake Total 1489.25 / 1489.25 1445 / 1475 1110 / 1110 Output Total 1750 / 1750 1325 / 1475 1225 / 1225 Balance -260.75 / -260.75 120 / 0 -115 / -115 Lab / Micro Data Result Diagrams: 04/24/22 05:26 04/24/22 05:26 Micro: Microbiology 04/19/22 06:08 Nasal Secretion SARS-CoV-2 & FLU Antigen (Rapid) - Final Physical Exam Const alert and oriented x3 Constitutional Narrative: Answers questions much quicker and his thought processing seems normal today. General Appearance: cooperative HEENT Mouth: dry mucous membranes Resp normal respiratory effort, normal air movement and clear to auscultation bilaterally Cardio regular rate, regular rhythm, no rub and no gallops GI GI Narrative: obese, soft, ND and NT. No guarding with palpation. Extremity General Extremity: edema bilateral (ANAID wraps are in place and the edema is better controlled now. He will likely need good compression stockings going forward to control the swelling due to severe proteniuria. May have him follow up in the [facility]. ) Skin General Skin Exam: no breakdown Rashes: no rashes Neuro CN's II-XII intact bilaterally, no focal motor deficits and no sensory deficits noted Assessment & Plan Assessment/Plan (1) Debility: (2) Generalized weakness: (3) IgA nephropathy: (4) Gouty arthritis: PLAN: Give 1.2 mg of Colchicine today and then start 0.6 mg once a day tomorrow. Continue the prednisone 20 mg daily. Give an extra dose of Prednisone 20 mg today (5) Chronic tophaceous gout: PLAN: suggested he follow up with rheumatology going forward to manage the gout We discussed that if he ever has a surgery in the future he will need prophylaxis to prevent acute gout due to tissue destruction. Also explained that acute attacks are due to acute fluctuation of the UA level......due to poor dist choices, surgery, tissue destruction or a medicine such as Allopurinol that drops the UA suddenly. (6) CKD (chronic kidney disease), stage III: PLAN: Will follow up with Dr. Spencer following DC from rehab. (7) Acute on chronic anemia: PLAN: stable......no plan for transfusion at this time. PLAN: Plan Recheck a renal profile and a HH on Sunday. Charges/Coding Visit Charges Inpatient E&M: 63977 Subs Hosp L2
[2022-04-19] MEDS: Colchicine 0.6 MG TABLET 1.2 MG PO (15:54)
[2022-04-19] MEDS: predniSONE 20 MG Tablet PO (15:54)
[2022-04-19 19:30] VITALS: BP 149/79; PULSE 80; RESP 14; TEMP 36.7; O2SAT 99
[2022-04-19] MEDS: traZODone 100 MG Tablet PO (21:00)
[2022-04-20] MEDS: predniSONE 10 MG Tablet PO (07:34)
[2022-04-20] MEDS: Sodium Bicarbonate 650 MG Tablet PO ×3 (07:34→17:06)
[2022-04-20] MEDS: Potassium Chloride Oral Tablet 10 MEQ PO (07:34)
[2022-04-20] MEDS: Colchicine 0.6 MG TABLET PO (07:34)
[2022-04-20 08:02] VITALS: BP 131/72; PULSE 86; RESP 17; TEMP 36.9; O2SAT 98
[2022-04-20] MEDS: Pantoprazole Sodium 40 MG Tablet PO (10:19)
[2022-04-20] MEDS: Magnesium Chloride 64 MG Delay Rel.Tablet 128 MG PO ×2 (10:19→20:40)
[2022-04-20] MEDS: Ascorbic Acid 500 MG Tablet PO ×2 (10:19→20:40)
[2022-04-20] MEDS: SILDENAFIL CITRATE 20 MG TABLET PO (10:19)
[2022-04-20] MEDS: Senna/Docusate Sodium 1 Tablet 2 TABLET PO (10:19)
[2022-04-20] MEDS: Cholecalciferol (VIT D3) 25 MCG TABLET (1,000 UNITS) 50 MCG PO (10:20)
[2022-04-20] MEDS: Sertraline 50 MG Tablet PO (10:20)
--- NOTE | 2022-04-20 13:17 | CASEMGMT ---
Social Work IDT met with patient and for Team meeting. Discussed patients progress in PT/OT/SN. Explained [facility] CM insurance with NRD 04/24 and continued stay is not guaranteed with each review and only provide one day's notice. Explained if pt cannot return home from [facility], insurance will not cover a SNF stay. The goal is for pt to return home with at [facility]. SW to continue to follow and assist with DC planning. Will Reteam next week. MARLEY LowryW
--- NOTE | 2022-04-20 14:22 | CHAPLAIN ---
Type of Pastoral Visit _x__ Initial Visit ___ Follow-up Visit ___ On-call Visit ___ General Patient Visit ___ Spiritual Assessment ___ Family Conference ___ Bereavement ___ Rapid Response ___ Code Blue ___ Other (describe below) Pastoral Care Referral From _x__ Patient ___ Family ___ Nurse ___ Physician ___ Compressor Operator ___ Fish Warden ___ Other (describe below) Sacrament/Intervention _x__ Active listening ___ Anointing ___ Protestant ___ Bereavement ___ Communion _x__ Mohini exploration ___ ___ Life review _x__ Prayer ___ Reconciliation ___ Sacrament of Sick _x__ Supportive presence ___ Wedding ___ Other (describe below) Pastoral Comments patient and spouse are together in the room; both express thankfulness for improvements and progress; spouse says that days ago we weren't sure if Aldo was going to make it; pt would normally be working long hours these days and he is asked about how he is coping with changes; support, prayers, and presence given
[2022-04-20] MEDS: Acetaminophen 325 MG Tablet 650 MG PO (17:09)
[2022-04-20] MEDS: oxyCODONE 5 MG Tablet PO (17:09)
--- NOTE | 2022-04-20 18:02 | NURSING ---
agree with kyle bustamante's clinical assessment and findings this shift 04/20
[2022-04-20 20:30] VITALS: BP 138/87; PULSE 92; RESP 18; TEMP 36.5; O2SAT 99
[2022-04-20] MEDS: traZODone 100 MG Tablet PO (20:40)
[2022-04-21 05:41] LABS: Hematocrit 25.3 % (40-54); Hemoglobin 7.7 g/dL (13.0-16.5)
[2022-04-21 06:03] LABS: Albumin, Serum 2.1 g/dL (3.2-5.0); BUN 28 mg/dL (7-18); Calcium,Total 8.5 mg/dL (8.5-10.1); Chloride 109 mmol/L (98-107); Creatinine, Serum 1.22 mg/dL (0.70-1.30); EST Glomerular Filtration Rate 64 mL/min (>60); Est Glom Filt Rate - Afr Amer 77 mL/min (>60); Estimated Creatinine Clearance 64.82 ml/min; Glucose 81 mg/dL (74-106); Phosphorus 3.2 mg/dL (2.5-4.9); Sodium Level 140 mmol/L (136-145)
[2022-04-21] MEDS: Acetaminophen 325 MG Tablet 650 MG PO (06:55)
[2022-04-21] MEDS: oxyCODONE 5 MG Tablet PO (06:55)
[2022-04-21] MEDS: predniSONE 10 MG Tablet PO (07:48)
[2022-04-21] MEDS: Potassium Chloride Oral Tablet 10 MEQ PO (07:48)
[2022-04-21] MEDS: Colchicine 0.6 MG TABLET PO (07:48)
[2022-04-21] MEDS: Sodium Bicarbonate 650 MG Tablet PO ×3 (07:48→16:46)
[2022-04-21 08:30] VITALS: BP 127/83; PULSE 92; RESP 16; TEMP 37.1; O2SAT 96
[2022-04-21] MEDS: Magnesium Chloride 64 MG Delay Rel.Tablet 128 MG PO ×2 (09:44→20:12)
[2022-04-21] MEDS: Pantoprazole Sodium 40 MG Tablet PO (09:45)
[2022-04-21] MEDS: SILDENAFIL CITRATE 20 MG TABLET PO (09:45)
[2022-04-21] MEDS: Cholecalciferol (VIT D3) 25 MCG TABLET (1,000 UNITS) 50 MCG PO (09:45)
[2022-04-21] MEDS: Sertraline 50 MG Tablet PO (09:45)
[2022-04-21] MEDS: Ascorbic Acid 500 MG Tablet PO ×2 (09:45→20:12)
[2022-04-21] MEDS: MethylPREDNISolone Acetate 40 MG/ML Vial IM (10:51)
[2022-04-21] MEDS: Bupivacaine 0.25% 30 ML Vial IM (10:51)
--- NOTE | 2022-04-21 10:52 | CON.PCM_ITS ---
Assessment & Plan Assessment/Plan (1) Left knee DJD: (2) Gout of left knee: PLAN: Plan Patient has chronic left knee pain history of gout left knee advanced knee arthrosis on plain film imaging. Discussed and performed intra-articular steroid injection 40 mg Depo-Medrol and 4 cc of 0.25% bupivacaine plain. Risks of injection including infection reviewed. Patient counseled may take 2 weeks for steroid to take full effect. Patient may follow-up on an outpatient basis if further treatment is required. HPI Consult Data Date of Consult: 04/21/22 HPI Narrative Reason for Consultation: Left knee HPI Narrative: GAMA AGUILERA, is a 61 M who presents chronic left knee pain history of gout left knee history of left knee arthrosis having difficult time because of it. No prior surgeries or injuries to the knee he does have chronic bilateral lower extremity edema [facility] Medical History (Updated 04/21/22 @ 10:[address] Jayme Salcido, ) Acidosis MAXI (acute kidney injury) Chronic anemia Chronic tophaceous gout CKD (chronic kidney disease), stage III HTN (hypertension) Morbid obesity Venous stasis Home Medications cholecalciferol (vitamin D3) 50 mcg (2,000 unit) tablet (Vitamin D3) 1 tab DAILY Supplement 04/07/22 [History Last Taken Unknown] losartan 50 mg tablet 1 tab PO DAILY BP 04/07/22 [History Last Taken Unknown] potassium chloride 10 mEq tablet,extended release 2 tab PO DAILY Supplement 04/07/22 [History Last Taken Unknown] sildenafil (pulm.hypertension) 20 mg tablet 1 tab PO DAILY BP 04/07/22 [History Last Taken Unknown] acetaminophen 325 mg tablet (Tylenol) 650 mg PO Q4H PRN PRN Fever, pain 1-10 #0 tabs 04/13/22 [Rx Last Taken Unknown] albuterol sulfate 2.5 mg/3 mL (0.083 %) solution for nebulization 2.5 mg (3 mL) inhalation Q2H PRN PRN Dyspnea, wheezing #0 mL 04/13/22 [Rx Last Taken Unknown] allopurinol 100 mg tablet 100 mg PO TIDCM Gout 04/13/22 [History Last Taken Unknown] ascorbic acid (vitamin C) 500 mg tablet 500 mg PO BID Supplement 04/13/22 [History Last Taken Unknown] ferrous sulfate 325 mg (65 mg iron) tablet,delayed release 325 mg PO QODAY Supplement 04/13/22 [History Last Taken Unknown] pantoprazole 40 mg tablet,delayed release (Protonix) 40 mg PO DAILY Stomach acid 04/13/22 [History Last Taken Unknown] polyethylene glycol 3350 17 gram oral powder packet 17 g PO DAILY Constipation 04/13/22 [History Last Taken Unknown] prednisone 10 mg tablet 10 mg PO DAILY Steroid 04/13/22 [History Last Taken Unknown] sennosides 8.6 mg-docusate sodium 50 mg tablet (Stool Softener-Stimulant La xative) 2 tab PO BID Constipation 04/13/22 [History Last Taken Unknown] sodium bicarbonate 650 mg tablet 650 mg PO TID Low sodium 04/13/22 [History Last Taken Unknown] Allergy/AdvReac Type Severity Reaction Status Date / Time Sulfa (Sulfonamide Allergy Intermediate Hives Verified 04/07/22 04:09 Antibiotics) Family History Father Prostate cancer Diabetes Hypertension Grandfather Prostate cancer Mother Diabetes Hypertension Other Colon cancer Surgical History (Updated 04/14/22 @ 20:09 by Felix Nix) History of cholecystectomy History of right hip replacement History of umbilical hernia repair Social History household members: spouse Smoking Status: Never smoker alcohol intake: never substance use type: does not use Physical Exam Const alert, oriented x3 and no apparent distress Extremity Extremity Narrative: Left knee there is no erythema or increased warmth no joint effusion he does have edema both lower extremities no open wounds reportedly I did not take down his compression dressings. No collateral or cruciate ligament instability range of motion is 10 to 80 degrees with a relatively pain-free mid arc. He does have medial and lateral joint line tenderness. No palpable deficit to quadriceps or patellar tendon. Lab / Micro Data Result Diagrams: 04/21/22 05:00 04/21/22 05:00 Labs: Laboratory Results - last 24 hr 04/21/22 05:00: Hgb 7.7 L, Hct 25.3 L 04/21/22 05:00: Sodium 140, Potassium 4.0, Chloride 109 H, Carbon Dioxide 23.0, BUN 28 H, Creatinine 1.22, Estim Creat Clear Calc 64.82, Est GFR (MDRD) Af Amer 77, Est GFR (MDRD) Non-Af 64, BUN/Creatinine Ratio 23.0 H, Glucose 81, Calcium 8.5, Phosphorus 3.2, Albumin 2.1 L
--- NOTE | 2022-04-21 11:00 | NURSING ---
Dr. Solorzano aware of HGB level and patient is asymptomatic. Denies dizziness, bp changes, sob. Will monitor.
[2022-04-21] MEDS: Ferrous Sulfate 325 MG Tablet PO (11:52)
[2022-04-21 19:23] VITALS: BP 124/68; PULSE 82; RESP 14; TEMP 36.8; O2SAT 96
[2022-04-21] MEDS: traZODone 100 MG Tablet PO (20:12)
[2022-04-21] MEDS: 0.9% Saline Lock 10 ML Syringe IV (20:12)
[2022-04-22 07:47] VITALS: BP 144/92; PULSE 75; RESP 18; TEMP 36.7; O2SAT 98
[2022-04-22] MEDS: Colchicine 0.6 MG TABLET PO (09:01)
[2022-04-22] MEDS: predniSONE 10 MG Tablet PO (09:01)
[2022-04-22] MEDS: Potassium Chloride Oral Tablet 10 MEQ PO (09:01)
[2022-04-22] MEDS: Pantoprazole Sodium 40 MG Tablet PO (09:02)
[2022-04-22] MEDS: SILDENAFIL CITRATE 20 MG TABLET PO (09:02)
[2022-04-22] MEDS: Magnesium Chloride 64 MG Delay Rel.Tablet 128 MG PO ×2 (09:02→21:00)
[2022-04-22] MEDS: Sodium Bicarbonate 650 MG Tablet PO ×3 (09:02→17:21)
[2022-04-22] MEDS: Cholecalciferol (VIT D3) 25 MCG TABLET (1,000 UNITS) 50 MCG PO (09:02)
[2022-04-22] MEDS: Ascorbic Acid 500 MG Tablet PO ×2 (09:02→21:00)
[2022-04-22] MEDS: Sertraline 50 MG Tablet PO (09:03)
--- NOTE | 2022-04-22 11:00 | NURSING ---
Dr Solorzano aware of positive occult stool.
--- NOTE | 2022-04-22 13:36 | PCM.PROGNOTE ---
Subjective Subjective This is a late entry from 04/20/2022. Adlo was seen on team rounds today and his was present in the room. Afebrile VSS-the systolic blood pressure for the past 4 days has ranged from 124-144. Diastolic blood pressure has ranged from 68-92. Maintaining appropriate oxygen saturation on RA Oral intake is getting better Discussed with nursing - no problems that need addressed Reviewed the PT/OT notes He is progressing and we are no longer having to use the Rafita to get him out of bed. Medication list reviewed. He is sleeping much better at night. Still very flat affect off and on. He is engaging more with staff and smiling on occasion. He continues to complain of left knee pain. He has increased swelling in his hands today but no redness and no increased warmth to touch and I suspect the swelling is due to to him leaning heavily on the WW when ambulating. ROS is negative except for the pain in the hands, elbows and L knee. Objective Data Objective Data Vital Signs: Vital Signs Temp Pulse Resp BP Pulse Ox O2 Del Method 98.0 F 75 18 144/92 H 98 Room Air 04/22/22 07:47 04/22/22 07:47 04/22/22 07:47 04/22/22 07:47 04/22/22 07:47 04/22/22 07:47 Oxygen Delivery Method Room Air Weight: 304 lb Body Mass Index (BMI) 43.2 Intake & Output: Intake and Output for Last 24 Hours 04/20/22 04/21/22 04/22/22 23:59 23:59 23:59 Intake Total 1580 / 1580 1190 / 1190 920 / 920 Output Total 1700 / 1700 1000 / 1000 250 / 250 Balance -120 / -120 190 / 190 670 / 670 Lab / Micro Data Result Diagrams: 04/24/22 05:26 04/24/22 05:26 Micro: Microbiology 04/22/22 08:50 Stool Stool Occult Blood (JOVAN) - Final Occult Blood Positive 04/19/22 06:08 Nasal Secretion SARS-CoV-2 & FLU Antigen (Rapid) - Final Physical Exam Const alert, oriented x3 and no apparent distress General Appearance: cooperative Eyes PERRL and EOMs intact bilaterally Resp normal respiratory effort, normal air movement and clear to auscultation bilaterally Resp Narrative: Diminished in the bases.....more likely than not due to body habitus. Able to speak in complete sentences. Cardio regular rate and regular rhythm; Negative for no murmurs, no rub or no gallops GI normal to inspection, nondistended, normoactive bowel sounds, soft to palpation and non-tender GI Narrative: denies constipation. No guarding with palpation. Extremity no calf tenderness General Extremity: edema bilateral (ANAID wraps are in place but he sits in the recliner with his legs dependent.) Skin General Skin Exam: no breakdown Rashes: no rashes Assessment & Plan Assessment/Plan (1) Debility: (2) IgA nephropathy: (3) Chronic tophaceous gout: (4) Gouty arthritis: PLAN: Plan 1. Will not taper the Prednisone off. Will continue him on Prednisone 10 mg daily and schedule an appt for him to follow up at the [facility] for tophaceous gout tx. 2. Will consult Dr. Salcido to evaluate the Left knee and consider possible steroid injection. Aldo tells me that he had a recent XRAY of the and I reviewed the XRAY of the knee done on 04/13/22. The x-ray shows tricompartmental osteophytic changes and a small suprapatellar effusion. There is severe narrowing of the medial joint space, mild to moderate narrowing of the lateral joint space and moderate narrowing of the patellofemoral joint space. 3. Recheck lab in the AM. 4. HGB is stable and he has no lightheadedness or c/o SOB so will continue to monitor but, no transfusion at this time. Charges/Coding Visit Charges Inpatient E&M: 03182 Subs Hosp L2
[2022-04-22 19:10] VITALS: BP 134/78; PULSE 82; RESP 17; TEMP 36.3; O2SAT 98
[2022-04-22] MEDS: traZODone 100 MG Tablet PO (21:00)
[2022-04-23 07:36] LABS: Magnesium 1.7 mg/dL (1.6-2.6)
[2022-04-23] MEDS: Colchicine 0.6 MG TABLET PO (08:07)
[2022-04-23] MEDS: Sodium Bicarbonate 650 MG Tablet PO ×3 (08:08→16:57)
[2022-04-23] MEDS: Potassium Chloride Oral Tablet 10 MEQ PO (08:08)
[2022-04-23] MEDS: predniSONE 10 MG Tablet PO (08:08)
[2022-04-23] MEDS: SILDENAFIL CITRATE 20 MG TABLET PO (08:09)
[2022-04-23] MEDS: Pantoprazole Sodium 40 MG Tablet PO (08:09)
[2022-04-23] MEDS: Cholecalciferol (VIT D3) 25 MCG TABLET (1,000 UNITS) 50 MCG PO (08:09)
[2022-04-23] MEDS: Magnesium Chloride 64 MG Delay Rel.Tablet 128 MG PO ×2 (08:09→22:18)
[2022-04-23] MEDS: Sertraline 50 MG Tablet PO (08:09)
[2022-04-23] MEDS: Ascorbic Acid 500 MG Tablet PO ×2 (08:09→22:18)
[2022-04-23 09:34] VITALS: BP 136/85; PULSE 96; RESP 18; TEMP 36.8; O2SAT 97
[2022-04-23] MEDS: Acetaminophen 325 MG Tablet 650 MG PO (11:37)
[2022-04-23] MEDS: oxyCODONE 5 MG Tablet PO (11:37)
[2022-04-23] MEDS: Ferrous Sulfate 325 MG Tablet PO (11:39)
[2022-04-23 19:36] VITALS: BP 141/83; PULSE 76; RESP 16; TEMP 36.6; O2SAT 97
[2022-04-23] MEDS: traZODone 100 MG Tablet PO (22:18)
[2022-04-24 05:31] LABS: Hematocrit 24.7 % (40-54); Hemoglobin 7.8 g/dL (13.0-16.5); Mean Corp Hgb Conc 31.6 g/dL (32-36); Mean Corpuscular Hgb 28.5 pg (27.0-32.0); Mean Corpuscular Volume 90.1 fL (80-94); Mean Platelet Vol. 8.2 fl (6.2-12.0); Platelet Count 218 K/mm3 (150-450); RBC Distribution Width CV 17.8 % (11.6-14.6); RBC Distribution Width SD 58.2 fl (35.1-43.9); Red Blood Count 2.74 M/mm3 (4.6-6.2); White Blood Count 8.2 K/mm3 (4.4-11.0)
[2022-04-24 05:55] LABS: Albumin, Serum 2.3 g/dL (3.2-5.0); BUN 24 mg/dL (7-18); Calcium,Total 8.5 mg/dL (8.5-10.1); Chloride 110 mmol/L (98-107); EST Glomerular Filtration Rate 65 mL/min (>60); Est Glom Filt Rate - Afr Amer 79 mL/min (>60); Glucose 88 mg/dL (74-106); Phosphorus 2.9 mg/dL (2.5-4.9); Potassium 3.7 mmol/L (3.5-5.1); Sodium Level 141 mmol/L (136-145)
[2022-04-24 08:37] VITALS: BP 131/82; PULSE 103; RESP 16; TEMP 36.8; O2SAT 97
[2022-04-24] MEDS: Potassium Chloride Oral Tablet 10 MEQ PO (08:54)
[2022-04-24] MEDS: Magnesium Chloride 64 MG Delay Rel.Tablet 128 MG PO ×2 (08:54→22:07)
[2022-04-24] MEDS: Pantoprazole Sodium 40 MG Tablet PO (08:55)
[2022-04-24] MEDS: Cholecalciferol (VIT D3) 25 MCG TABLET (1,000 UNITS) 50 MCG PO (08:55)
[2022-04-24] MEDS: SILDENAFIL CITRATE 20 MG TABLET PO (08:55)
[2022-04-24] MEDS: Sertraline 50 MG Tablet PO (08:55)
[2022-04-24] MEDS: Colchicine 0.6 MG TABLET PO (08:56)
[2022-04-24] MEDS: Ascorbic Acid 500 MG Tablet PO ×2 (08:57→22:08)
[2022-04-24] MEDS: predniSONE 10 MG Tablet PO (08:57)
[2022-04-24] MEDS: Sodium Bicarbonate 650 MG Tablet PO ×3 (08:57→17:50)
--- NOTE | 2022-04-24 12:14 | PN_ITS ---
Subjective Subjective Afebrile VSS Maintaining appropriate oxygen saturation on RA Oral intake is good Good urine output. weight is up a couple pounds in the past several days.....up about 10 lbs since admission to the hospital Discussed with nursing - no problems that need addressed Reviewed the PT/OT notes Medication list reviewed. All lab was personally reviewed. Hemoglobin is stable at 7.8. White blood cell count is normal and so is the platelet count. Sodium is 141 and the potassium is 3.7. Serum bicarb is 23. The BUN is 24 and the creatinine is stable at 1.2 with a GFR of 65. Phosphorus is within normal limits. Calcium is within normal limits. Atypical P ANCA is elevated at 1:160 Objective Data Objective Data Vital Signs: Vital Signs Temp Pulse Resp BP Pulse Ox O2 Del Method 98.2 F 103 H 16 131/82 H 97 Room Air 04/24/22 08:37 04/24/22 08:37 04/24/22 08:37 04/24/22 08:37 04/24/22 08:37 04/24/22 08:37 Oxygen Delivery Method Room Air Weight: 306 lb 3.2 oz Body Mass Index (BMI) 43.2 Intake & Output: Intake and Output for Last 24 Hours 04/22/22 04/23/22 04/24/22 23:59 23:59 23:59 Intake Total 1720 / 1720 1650 / 1650 790 / 790 Output Total 550 / 550 1650 / 1650 950 / 950 Balance 1170 / 1170 0 / 0 -160 / -160 Lab / Micro Data Result Diagrams: 04/24/22 05:26 04/24/22 05:26 Labs: Laboratory Results - last 24 hr 04/24/22 05:26: WBC 8.2, RBC 2.74 L, Hgb 7.8 L, Hct 24.7 L, MCV 90.1, MCH 28.5, MCHC 31.6 L, RDW Std Deviation 58.2 H, RDW Coeff of Singh 17.8 H, Plt Count 218, M PV 8.2 04/24/22 05:26: Sodium 141, Potassium 3.7, Chloride 110 H, Carbon Dioxide 23.0, BUN 24 H, Creatinine 1.20, Estim Creat Clear Calc 65.90, Est GFR (MDRD) Af Amer 79, Est GFR (MDRD) Non-Af 65, BUN/Creatinine Ratio 20.0, Glucose 88, Calcium 8.5, Phosphorus 2.9, Albumin 2.3 L Micro: Microbiology 04/22/22 08:50 Stool Stool Occult Blood (JOVAN) - Final Occult Blood Positive 04/19/22 06:08 Nasal Secretion SARS-CoV-2 & FLU Antigen (Rapid) - Final
--- NOTE | 2022-04-24 12:24 | PN_ITS ---
Subjective Subjective Afebrile VSS Maintaining appropriate oxygen saturation on RA Oral intake is good Discussed with nursing - no problems that need addressed Reviewed the PT/OT notes - He is mostly only wanting to walk with therapy and is not wanting to work on ADL's with OT......like posterior hygiene with toileting and holding the urinal himself. Medication list reviewed. He is tolerating the Sertraline with no adverse react ions. He is sleeping better at night and he is very motivated to do well so he can go home. He denies SOB at rest. Has some CAMPOS. Denies CP, palpitations, lightheadedness, dysuria, abd pain, N/V/D/C, calf pain. His left knee feels much better since it was injected and he is able to walk further in therapy. Still having stiffness at times.....more so after prolonged sitting in the chair. Path report is consistent with IgA nephropathy. Objective Data Objective Data Vital Signs: Vital Signs Temp Pulse Resp BP Pulse Ox O2 Del Method 98.2 F 103 H 16 131/82 H 97 Room Air 04/24/22 08:37 04/24/22 08:37 04/24/22 08:37 04/24/22 08:37 04/24/22 08:37 04/24/22 08:37 Oxygen Delivery Method Room Air Weight: 306 lb 3.2 oz Body Mass Index (BMI) 43.2 Intake & Output: Intake and Output for Last 24 Hours 04/22/22 04/23/22 04/24/22 23:59 23:59 23:59 Intake Total 1720 / 1720 1650 / 1650 790 / 790 Output Total 550 / 550 1650 / 1650 950 / 950 Balance 1170 / 1170 0 / 0 -160 / -160 Lab / Micro Data Result Diagrams: 04/24/22 05:26 04/24/22 05:26 Labs: Laboratory Results - last 24 hr 04/24/22 05:26: WBC 8.2, RBC 2.74 L, Hgb 7.8 L, Hct 24.7 L, MCV 90.1, MCH 28.5, MCHC 31.6 L, RDW Std Deviation 58.2 H, RDW Coeff of Singh 17.8 H, Plt Count 218, MPV 8.2 04/24/22 05:26: Sodium 141, Potassium 3.7, Chloride 110 H, Carbon Dioxide 23.0, BUN 24 H, Creatinine 1.20, Estim Creat Clear Calc 65.90, Est GFR (MDRD) Af Amer 79, Est GFR (MDRD) Non-Af 65, BUN/Creatinine Ratio 20.0, Glucose 88, Calcium 8.5, Phosphorus 2.9, Albumin 2.3 L Micro: Microbiology 04/22/22 08:50 Stool Stool Occult Blood (JOVAN) - Final Occult Blood Positive 04/19/22 06:08 Nasal Secretion SARS-CoV-2 & FLU Antigen (Rapid) - Final Physical Exam Const alert, oriented x3 and no apparent distress General Appearance: cooperative Resp normal respiratory effort and clear to auscultation bilaterally Resp Narrative: diminished in the bases Cardio regular rate, regular rhythm, no rub and no gallops GI normal to inspection, nondistended, normoactive bowel sounds, soft to palpation and non-tender Extremity no calf tenderness Assessment & Plan Assessment/Plan (1) Debility: PLAN: Continue PT/OT. (2) IgA nephropathy: PLAN: We will follow-up with Dr. Spencer as an outpatient. (3) Generalized weakness: PLAN: Making progress in therapy however needs more time to work on ADLs as he is not doing some things he will need to do at home since his is working and will not be available to hold the urinal, do posterior hygiene. May need to introduce the concept of a hygiene wand to him. (4) Gouty arthritis: PLAN: Introduce Allopurinol 100 mg daily to the drug regimen starting on Sunday. Recheck the UA in 4 weeks and if it is still > 5 then increase the dose by 100 mg and recheck in 1 month. Goal with tophaceous gout is < 5. (5) Chronic tophaceous gout: PLAN: Plans on following up with the [facility] post discharge (6) Hyperuricemia: (7) Hypoalbuminemia: PLAN: Due to severe proteinuria, venous insufficiency, obesity and having his legs dependent when sitting in the recliner. (8) Leg edema: PLAN: No diuretics at this time due to the recent acute on chronic renal failure.......many days the OP exceeds the input still. Charges/Coding Visit Charges Inpatient E&M: 43416 Subs Hosp L2
[2022-04-24 19:15] VITALS: BP 135/75; PULSE 86; RESP 16; TEMP 36.4; O2SAT 100
[2022-04-24 22:00] VITALS: PULSE 86; RESP 16; O2SAT 100
[2022-04-24] MEDS: Acetaminophen 325 MG Tablet 650 MG PO (22:07)
[2022-04-24] MEDS: traZODone 100 MG Tablet PO (22:08)
[2022-04-25 07:36] VITALS: BP 118/78; PULSE 100; RESP 16; TEMP 36.6; O2SAT 98
[2022-04-25] MEDS: Sertraline 50 MG Tablet PO (08:14)
[2022-04-25] MEDS: predniSONE 10 MG Tablet PO (08:14)
[2022-04-25] MEDS: Cholecalciferol (VIT D3) 25 MCG TABLET (1,000 UNITS) 50 MCG PO (08:14)
[2022-04-25] MEDS: Magnesium Chloride 64 MG Delay Rel.Tablet 128 MG PO ×2 (08:14→20:16)
[2022-04-25] MEDS: Ascorbic Acid 500 MG Tablet PO ×2 (08:14→20:16)
[2022-04-25] MEDS: Sodium Bicarbonate 650 MG Tablet PO ×3 (08:14→17:08)
[2022-04-25] MEDS: Pantoprazole Sodium 40 MG Tablet PO (08:14)
[2022-04-25] MEDS: Colchicine 0.6 MG TABLET PO (08:14)
[2022-04-25] MEDS: Potassium Chloride Oral Tablet 20 MEQ PO (08:14)
[2022-04-25] MEDS: SILDENAFIL CITRATE 20 MG TABLET PO (08:14)
[2022-04-25] MEDS: oxyCODONE 5 MG Tablet PO (08:19)
[2022-04-25] MEDS: Acetaminophen 325 MG Tablet 650 MG PO (08:21)
[2022-04-25] MEDS: Ferrous Sulfate 325 MG Tablet PO (12:08)
[2022-04-25 19:24] VITALS: BP 129/83; PULSE 84; RESP 16; TEMP 36.6; O2SAT 99
[2022-04-25 20:00] VITALS: PULSE 84; RESP 16; O2SAT 99
[2022-04-25] MEDS: traZODone 100 MG Tablet PO (20:16)
--- NOTE | 2022-04-26 03:25 | NURSING ---
Reviewed and agree with BOX SEALING MACHINE OPERATOR documentation and assessment charting.
[2022-04-26 07:29] VITALS: BP 120/70; PULSE 80; RESP 16; TEMP 36.7; O2SAT 97
[2022-04-26] MEDS: Cholecalciferol (VIT D3) 25 MCG TABLET (1,000 UNITS) 50 MCG PO (08:29)
[2022-04-26] MEDS: SILDENAFIL CITRATE 20 MG TABLET PO (08:29)
[2022-04-26] MEDS: oxyCODONE 5 MG Tablet PO (08:29)
[2022-04-26] MEDS: Sertraline 50 MG Tablet PO (08:29)
[2022-04-26] MEDS: Pantoprazole Sodium 40 MG Tablet PO (08:30)
[2022-04-26] MEDS: Sodium Bicarbonate 650 MG Tablet PO ×3 (08:30→17:23)
[2022-04-26] MEDS: Potassium Chloride Oral Tablet 20 MEQ PO (08:30)
[2022-04-26] MEDS: Magnesium Chloride 64 MG Delay Rel.Tablet 128 MG PO ×2 (08:30→20:35)
[2022-04-26] MEDS: Ascorbic Acid 500 MG Tablet PO ×2 (08:30→20:37)
[2022-04-26] MEDS: predniSONE 10 MG Tablet PO (08:30)
[2022-04-26] MEDS: Colchicine 0.6 MG TABLET PO (08:30)
[2022-04-26] MEDS: Acetaminophen 325 MG Tablet 650 MG PO (08:35)
[2022-04-26] MEDS: Senna/Docusate Sodium 1 Tablet 2 TABLET PO (20:35)
[2022-04-26] MEDS: traZODone 100 MG Tablet PO (20:35)
[2022-04-26 22:00] VITALS: BP 134/79; PULSE 96; RESP 16; TEMP 36.6; O2SAT 98
[2022-04-27 07:18] VITALS: BP 120/64; PULSE 81; RESP 18; TEMP 36.8; O2SAT 98
[2022-04-27] MEDS: Sertraline 50 MG Tablet PO (08:03)
[2022-04-27] MEDS: Potassium Chloride Oral Tablet 20 MEQ PO (08:03)
[2022-04-27] MEDS: Sodium Bicarbonate 650 MG Tablet PO ×3 (08:03→16:36)
[2022-04-27] MEDS: Colchicine 0.6 MG TABLET PO (08:03)
[2022-04-27] MEDS: Pantoprazole Sodium 40 MG Tablet PO (08:03)
[2022-04-27] MEDS: predniSONE 10 MG Tablet PO (08:03)
[2022-04-27] MEDS: Magnesium Chloride 64 MG Delay Rel.Tablet 128 MG PO ×2 (08:04→21:06)
[2022-04-27] MEDS: Cholecalciferol (VIT D3) 25 MCG TABLET (1,000 UNITS) 50 MCG PO (08:04)
[2022-04-27] MEDS: Ascorbic Acid 500 MG Tablet PO ×2 (08:04→21:06)
[2022-04-27] MEDS: SILDENAFIL CITRATE 20 MG TABLET PO (08:04)
--- NOTE | 2022-04-27 10:02 | PCM.PROGNOTE ---
Subjective Subjective Nicholas was seen on team rounds today. His Mora was present in the room for rounds. Afebrile VSS-blood pressures well controlled. Maintaining appropriate oxygen saturation on RA Oral intake is good Discussed with nursing - no problems that need addressed Reviewed the PT/OT notes - He is progressing and today PT was going to try a curb step with crutches......he has 2 steps to get in his home with no HR's. Medication list reviewed. Denies feeling drowsy and he is sleeping well at night. No CP, palpitations, calf pain, hematuria, Nausea, vomiting, diarrhea. Smiling much more and interacting better with the staff. Still has Left knee pain, eugene with ambulating, but he has severe OA in the L knee and will likely need a TKR in the future. He will follow up with Dr. Yañez in the office post DC. He is c/o if persistent pain in the hands and the left knee. His hands are mildly swollen but, there is no longer any redness or increased warmth to touch. His hands feel stiff. Objective Data Objective Data Vital Signs: Vital Signs Temp Pulse Resp BP Pulse Ox O2 Del Method 98.3 F 81 18 120/64 98 Room Air 04/27/22 07:18 04/27/22 07:18 04/27/22 07:18 04/27/22 07:18 04/27/22 07:18 04/27/22 07:18 Oxygen Delivery Method Room Air Weight: 307 lb Body Mass Index (BMI) 43.2 Intake & Output: Intake and Output for Last 24 Hours 04/25/22 04/26/22 04/27/22 23:59 23:59 23:59 Intake Total 1545 / 1545 1700 / 2000 300 / 300 Output Total 2375 / 2375 1450 / 2200 1200 / 1200 Balance -830 / -830 250 / -200 -900 / -900 Lab / Micro Data Result Diagrams: 04/24/22 05:26 04/24/22 05:26 Micro: Microbiology 04/22/22 08:50 Stool Stool Occult Blood (JOVAN) - Final Occult Blood Positive 04/19/22 06:08 Nasal Secretion SARS-CoV-2 & FLU Antigen (Rapid) - Final Physical Exam Narrative Alert, sitting in the recliner at the bedside, appears in no distress. Const alert, oriented x3 and no apparent distress General Appearance: cooperative Resp normal respiratory effort, normal air movement and clear to auscultation bilaterally Resp Narrative: Diminished in the bases.....more likely than not due to body habitus. Able to speak in complete sentences. Cardio regular rate, regular rhythm, no rub and no gallops; Negative for no murmurs GI normal to inspection, nondistended, normoactive bowel sounds, soft to palpation and non-tender GI Narrative: obese, soft, ND and NT. No guarding with palpation. Extremity no calf tenderness Extremity Narrative: He was measured for compression stockings and will fax the form for Circ[employer] to the [employer] and they will call his to arrange payment. Skin General Skin Exam: no breakdown Rashes: no rashes Neuro CN's II-XII intact bilaterally, no focal motor deficits and no sensory deficits noted Assessment & Plan Assessment/Plan (1) Leg edema: PLAN: compression stockings ordered (2) Acute on chronic anemia: PLAN: stable (3) Depression: PLAN: better with the Remeron. sleeping well and eating well now and in a much better mood (4) Venous insufficiency (chronic) (peripheral): (5) Hyperuricemia: PLAN: Will start Allopurinol in the next few days (6) Gouty arthritis: (7) IgA nephropathy: (8) Hypoalbuminemia: PLAN: due to severe proteinuria (9) Generalized weakness: PLAN: Continue therapy. Must be safe by himself at home because his works. Doing better with ADL's and now able to do his own posterior care. (10) Debility: Charges/Coding Visit Charges Inpatient E&M: 39913 Subs Hosp L2
[2022-04-27] MEDS: Ferrous Sulfate 325 MG Tablet PO (12:48)
[2022-04-27] MEDS: Acetaminophen 325 MG Tablet 650 MG PO (12:52)
[2022-04-27] MEDS: oxyCODONE 5 MG Tablet PO (12:52)
--- NOTE | 2022-04-27 12:58 | CASEMGMT ---
Social Work IDT met with patient and for Team meeting. Discussed patient's progress in PT/OT/SN. Explained [facility] CM insurance with NRD 05/01 and continued stay is not guaranteed. The goal is for pt to return home with . However, just switched jobs and will not home with pt at [place], expect for outside work hours. Will ReTeam. At [place], IDT recommending outpatient therapy. Pt prefers [facility]. No DME needs. SW to make referrals for PT/OT at [place]. Will continue to follow. Jackie Wood, WATER FILTER CLEANER HOP SEPARATOR
--- NOTE | 2022-04-27 16:21 | CASEMGMT ---
Addendum entered by Iona Hernandez 04/27/22 16:34: Pt has current LW documents and did not want to complete a new set at this time. LIYA Comer Original Note: Social Work SW in to complete Advanced Directives with Pt. Pt named his , Mora Mccallum, JAYLYN. Pt also named daughters as alternates. Pt declined to complete LW documents at this time. Originals and copies given to pt. Copy placed on pt's chart. LIYA Rodriguez
[2022-04-27 20:36] VITALS: BP 133/82; PULSE 75; RESP 16; TEMP 36.6; O2SAT 100
[2022-04-27] MEDS: traZODone 100 MG Tablet PO (21:06)
[2022-04-27 22:00] VITALS: RESP 16; O2SAT 100
[2022-04-28 07:45] VITALS: BP 116/79; PULSE 84; RESP 16; TEMP 37.1; O2SAT 97
[2022-04-28] MEDS: predniSONE 10 MG Tablet PO (07:59)
[2022-04-28] MEDS: Cholecalciferol (VIT D3) 25 MCG TABLET (1,000 UNITS) 50 MCG PO (07:59)
[2022-04-28] MEDS: Pantoprazole Sodium 40 MG Tablet PO (07:59)
[2022-04-28] MEDS: Sodium Bicarbonate 650 MG Tablet PO ×3 (07:59→17:11)
[2022-04-28] MEDS: Colchicine 0.6 MG TABLET PO (07:59)
[2022-04-28] MEDS: Potassium Chloride Oral Tablet 20 MEQ PO (07:59)
[2022-04-28] MEDS: SILDENAFIL CITRATE 20 MG TABLET PO (08:00)
[2022-04-28] MEDS: Magnesium Chloride 64 MG Delay Rel.Tablet 128 MG PO ×2 (08:00→20:41)
[2022-04-28] MEDS: Sertraline 50 MG Tablet PO (08:00)
[2022-04-28] MEDS: Ascorbic Acid 500 MG Tablet PO ×2 (08:00→20:41)
[2022-04-28] MEDS: oxyCODONE 5 MG Tablet PO (10:15)
[2022-04-28] MEDS: Acetaminophen 325 MG Tablet 650 MG PO (10:15)
--- NOTE | 2022-04-28 19:33 | NURSING ---
Agreed to [employer].
[2022-04-28 20:40] VITALS: BP 132/85; PULSE 61; PULSE 80; RESP 15; TEMP 36.7; O2SAT 97
[2022-04-28] MEDS: traZODone 100 MG Tablet PO (20:41)
[2022-04-29] MEDS: Sodium Bicarbonate 650 MG Tablet PO ×3 (08:40→16:58)
[2022-04-29] MEDS: Cholecalciferol (VIT D3) 25 MCG TABLET (1,000 UNITS) 50 MCG PO (08:40)
[2022-04-29] MEDS: Pantoprazole Sodium 40 MG Tablet PO (08:40)
[2022-04-29] MEDS: Ascorbic Acid 500 MG Tablet PO ×2 (08:40→20:21)
[2022-04-29] MEDS: SILDENAFIL CITRATE 20 MG TABLET PO (08:40)
[2022-04-29] MEDS: Magnesium Chloride 64 MG Delay Rel.Tablet 128 MG PO ×2 (08:41→20:20)
[2022-04-29] MEDS: Sertraline 50 MG Tablet PO (08:41)
[2022-04-29] MEDS: Potassium Chloride Oral Tablet 20 MEQ PO (08:41)
[2022-04-29] MEDS: predniSONE 10 MG Tablet PO (08:41)
[2022-04-29] MEDS: Colchicine 0.6 MG TABLET PO (08:42)
[2022-04-29 09:40] VITALS: BP 144/91; PULSE 85; RESP 17; TEMP 36.6; O2SAT 95
[2022-04-29] MEDS: Ferrous Sulfate 325 MG Tablet PO (12:07)
[2022-04-29 19:19] VITALS: BP 132/83; PULSE 100; RESP 20; TEMP 36.4; O2SAT 99
[2022-04-29] MEDS: traZODone 100 MG Tablet PO (20:20)
--- NOTE | 2022-04-30 03:43 | NURSING ---
Reviewed and agree with DATA ENTRY PROCESSOR documentation.
[2022-04-30] MEDS: Magnesium Chloride 64 MG Delay Rel.Tablet 128 MG PO ×2 (08:14→21:47)
[2022-04-30] MEDS: Ascorbic Acid 500 MG Tablet PO ×2 (08:14→21:48)
[2022-04-30] MEDS: Colchicine 0.6 MG TABLET PO (08:15)
[2022-04-30] MEDS: Pantoprazole Sodium 40 MG Tablet PO (08:15)
[2022-04-30] MEDS: Potassium Chloride Oral Tablet 20 MEQ PO (08:16)
[2022-04-30] MEDS: Cholecalciferol (VIT D3) 25 MCG TABLET (1,000 UNITS) 50 MCG PO (08:16)
[2022-04-30] MEDS: Sodium Bicarbonate 650 MG Tablet PO ×3 (08:17→16:13)
[2022-04-30] MEDS: Sertraline 50 MG Tablet PO (08:18)
[2022-04-30] MEDS: predniSONE 10 MG Tablet PO (08:18)
[2022-04-30] MEDS: SILDENAFIL CITRATE 20 MG TABLET PO (08:18)
[2022-04-30] MEDS: Acetaminophen 325 MG Tablet 650 MG PO (08:45)
[2022-04-30 10:00] VITALS: BP 137/87; PULSE 102; RESP 18; TEMP 37.1; O2SAT 100
[2022-04-30 19:18] VITALS: BP 147/82; PULSE 74; RESP 17; TEMP 36.7; O2SAT 97
[2022-04-30] MEDS: traZODone 100 MG Tablet PO (21:47)
[2022-04-30 22:00] VITALS: PULSE 74; RESP 16; O2SAT 97
[2022-05-01 07:40] VITALS: BP 124/75; PULSE 100; RESP 16; TEMP 35.9; O2SAT 98
[2022-05-01] MEDS: Pantoprazole Sodium 40 MG Tablet PO (08:00)
[2022-05-01] MEDS: SILDENAFIL CITRATE 20 MG TABLET PO (08:00)
[2022-05-01] MEDS: Magnesium Chloride 64 MG Delay Rel.Tablet 128 MG PO (08:00)
[2022-05-01] MEDS: predniSONE 10 MG Tablet PO (08:00)
[2022-05-01] MEDS: Sodium Bicarbonate 650 MG Tablet PO ×3 (08:00→17:11)
[2022-05-01] MEDS: Sertraline 50 MG Tablet PO (08:00)
[2022-05-01] MEDS: Colchicine 0.6 MG TABLET PO (08:00)
[2022-05-01] MEDS: Potassium Chloride Oral Tablet 20 MEQ PO (08:00)
[2022-05-01] MEDS: Ascorbic Acid 500 MG Tablet PO ×2 (08:00→20:05)
[2022-05-01] MEDS: Cholecalciferol (VIT D3) 25 MCG TABLET (1,000 UNITS) 50 MCG PO (08:03)
[2022-05-01] MEDS: Ferrous Sulfate 325 MG Tablet PO (12:07)
--- NOTE | 2022-05-01 14:03 | PCM.PROGNOTE ---
Subjective Subjective Afebrile VSS-blood pressure is well controlled and he denies lightheadedness. Maintaining appropriate oxygen saturation on RA Oral intake is good Discussed with nursing - no problems that need addressed Reviewed the PT/OT notes Medication list reviewed. Aldo denies chest pain, shortness of breath, palpitations, dysuria, nausea/vomiting/abdominal pain, orthopnea and constipation. He tells me that his MCPs on both hands are still feeling kind of stiff and he still has some pain in the elbows over the bursa. He has tenderness in the thighs due to edema but, they do not hurt unless I push in to see if he pits. Objective Data Objective Data Vital Signs: Vital Signs Temp Pulse Resp BP Pulse Ox O2 Del Method 96.7 F L 100 16 124/75 H 98 Room Air 05/01/22 07:40 05/01/22 07:40 05/01/22 07:40 05/01/22 07:40 05/01/22 07:40 05/01/22 07:40 Oxygen Delivery Method Room Air Weight: 307 lb 15.772 oz Body Mass Index (BMI) 43.2 Intake & Output: Intake and Output for Last 24 Hours 04/29/22 04/30/22 05/01/22 23:59 23:59 23:59 Intake Total 1020 / 1020 720 / 720 660 / 660 Output Total 1650 / 1650 1825 / 1825 450 / 450 Balance -630 / -630 -1105 / -1105 210 / 210 Lab / Micro Data Result Diagrams: 04/24/22 05:26 04/24/22 05:26 Micro: Microbiology 04/22/22 08:50 Stool Stool Occult Blood (JOVAN) - Final Occult Blood Positive 04/19/22 06:08 Nasal Secretion SARS-CoV-2 & FLU Antigen (Rapid) - Final Physical Exam Const alert, oriented x3 and no apparent distress Constitutional Narrative: Sitting in a chair at the bedside with his legs dependent. General Appearance: cooperative Resp Resp Narrative: Good air exchange throughout and lungs are clear to auscultation. Air exchange is much improved over what it was at admission. Cardio regular rhythm and no gallops Cardio Narrative: Increased resting heart rate. Denies palpitations. The rate is fast enough currently that I can not tell if it is irregular and AF or if it is ST GI normal to inspection, nondistended, normoactive bowel sounds, soft to palpation and non-tender GI Narrative: No guarding with palpation Extremity Extremity Narrative: He has pitting edema up to the groin BL in the dependent portion of the thigh. He has pain with palpating due to the edema. He has less edema in his hands and the BL UE's and has been elevating his hands at night. Skin General Skin Exam: no breakdown Rashes: no rashes Neuro CN's II-XII intact bilaterally, no focal motor deficits and no sensory deficits noted Psych thought process normal Appearance: appropriate Assessment & Plan Assessment/Plan (1) Debility: PLAN: Continue therapy (2) Generalized weakness: (3) IgA nephropathy: PLAN: We will follow-up with Dr. Spencer as an outpatient. His last creatinine was 1.2. Will recheck lab in the a.m. and if his creatinine is stable we will asked Dr. Spencer if it is okay to start a diuretic to help with the fluid in his legs. (4) CKD (chronic kidney disease), stage III: PLAN: The last creatinine was 1.2 which is better than it is at his baseline. (5) Proteinuria: PLAN: Approximately 2.4 g of protein daily. Associated with hypoalbuminemia and third spacing of fluid, especially in his legs. (6) Acute on chronic anemia: PLAN: Stable. We will recheck a CBC in the a.m. (7) Hyperuricemia: PLAN: Start allopurinol 100 mg p.o. daily in the a.m. and continue prednisone 10 mg and colchicine 0.6 mg daily. (8) Tachycardia: PLAN: EKG now. If he is in A. fib will need to consider anticoagulation. Charges/Coding Visit Charges Inpatient E&M: 48874 Subs Hosp L2
--- NOTE | 2022-05-01 14:13 | EKG12_ITS ---
Test Reason : PALP Blood Pressure : / mmHG Vent. Rate : 100 BPM Atrial Rate : 100 BPM P-R Int : 166 ms QRS Dur : 088 ms QT Int : 324 ms P-R-T Axes : 053 -09 029 degrees QTc Int : 417 ms Normal sinus rhythm Low voltage QRS (Limb Leads) Poor R wave progression Confirmed by KATIE JENNINGS, TENA ([id number]), science editor KRISTAN HERNANDEZ ([id number]) on 05/03/2022 11:33:24 AM Referred By: SHANIQUE Confirmed By:TENA WILSON MD
[2022-05-01 19:15] VITALS: BP 139/81; PULSE 86; RESP 20; TEMP 36.7; O2SAT 98
[2022-05-01] MEDS: traZODone 100 MG Tablet PO (20:05)
[2022-05-01 22:00] VITALS: PULSE 82; RESP 17; O2SAT 98
[2022-05-02 05:29] LABS: Hematocrit 24.2 % (40-54); Hemoglobin 7.8 g/dL (13.0-16.5); Mean Corp Hgb Conc 32.2 g/dL (32-36); Mean Corpuscular Hgb 29.2 pg (27.0-32.0); Mean Corpuscular Volume 90.6 fL (80-94); Mean Platelet Vol. 8.5 fl (6.2-12.0); Platelet Count 180 K/mm3 (150-450); RBC Distribution Width CV 17.7 % (11.6-14.6); RBC Distribution Width SD 59.3 fl (35.1-43.9); Red Blood Count 2.67 M/mm3 (4.6-6.2); White Blood Count 5.8 K/mm3 (4.4-11.0)
[2022-05-02 06:23] LABS: Albumin, Serum 2.3 g/dL (3.2-5.0); BUN 14 mg/dL (7-18); BUN/Creat Ratio 11.9 RATIO (10-20); Calcium,Total 8.3 mg/dL (8.5-10.1); Chloride 111 mmol/L (98-107); Creatinine, Serum 1.18 mg/dL (0.70-1.30); EST Glomerular Filtration Rate 66 mL/min (>60); Est Glom Filt Rate - Afr Amer 80 mL/min (>60); Estimated Creatinine Clearance 67.02 ml/min; Glucose 80 mg/dL (74-106); Phosphorus 3.1 mg/dL (2.5-4.9); Potassium 3.6 mmol/L (3.5-5.1); Sodium Level 141 mmol/L (136-145)
[2022-05-02 07:12] VITALS: BP 131/77; PULSE 88; RESP 16; TEMP 36.4; O2SAT 95
[2022-05-02] MEDS: predniSONE 10 MG Tablet PO (07:32)
[2022-05-02] MEDS: Allopurinol 100 MG Tablet PO (07:32)
[2022-05-02] MEDS: Cholecalciferol (VIT D3) 25 MCG TABLET (1,000 UNITS) 50 MCG PO (07:32)
[2022-05-02] MEDS: Sodium Bicarbonate 650 MG Tablet PO ×3 (07:32→17:12)
[2022-05-02] MEDS: Potassium Chloride Oral Tablet 20 MEQ PO (07:33)
[2022-05-02] MEDS: Colchicine 0.6 MG TABLET PO (07:33)
[2022-05-02] MEDS: Sertraline 50 MG Tablet PO (07:33)
[2022-05-02] MEDS: SILDENAFIL CITRATE 20 MG TABLET PO (07:33)
[2022-05-02] MEDS: Ascorbic Acid 500 MG Tablet PO ×2 (07:33→19:47)
[2022-05-02] MEDS: Pantoprazole Sodium 40 MG Tablet PO (07:33)
--- NOTE | 2022-05-02 09:07 | CASEMGMT ---
Social Work Left message with notifying her that insurance approved additional days with NRD 05/08. Offered to set DC date to coordinate with 's work schedule. Will await return phone call. MARLEY LowryW
--- NOTE | 2022-05-02 12:47 | PN_ITS ---
Subjective Subjective Afebrile VSS Maintaining appropriate oxygen saturation on RA Oral intake is good Weight is up approximately 13 pounds since admission to the hospital on 04/07/2022. Discussed with nursing - no problems that need addressed Reviewed the PT/OT/ST notes Medication list reviewed. All lab was personally reviewed. Creatinine is stable at 0.18. Potassium is 3.6 and the sodium is 141. Calcium corrected for hypoalbuminemia is within normal limits and the phosphorus is also normal. Albumin is 2.3. Hemoglobin is stable at 7.8 and white blood cell count and platelets are within normal limits. Stool was heme positive on 04/22/2022. He had an EGD while in the acute side of the hospital that showed prepyloric mildly erythematous mucosa without bleeding and a localized mildly erythematous mucosa without active bleeding in the duodenal bulb. He is currently on Protonix 40 mg daily. Aldo tells me that his stool was less loose this AM and not watery. The mag is on hold due to copious diarrhea. He denies CP, SOB, palpitations, dysuria, lightheadedness and calf pain. Objective Data Objective Data Vital Signs: Vital Signs Temp Pulse Resp BP Pulse Ox O2 Del Method 97.6 F L 88 16 131/77 H 95 Room Air 05/02/22 07:12 05/02/22 07:12 05/02/22 07:12 05/02/22 07:12 05/02/22 07:12 05/02/22 07:12 Oxygen Delivery Method Room Air Weight: 308 lb 6.827 oz Body Mass Index (BMI) 43.2 Intake & Output: Intake and Output for Last 24 Hours 04/30/22 05/01/22 05/02/22 23:59 23:59 23:59 Intake Total 720 / 720 1460 / 1460 720 / 720 Output Total 1825 / 1825 1375 / 1375 1075 / 1075 Balance -1105 / -1105 85 / 85 -355 / -355 Lab / Micro Data Result Diagrams: 05/02/22 05:24 05/02/22 05:24 Labs: Laboratory Results - last 24 hr 05/02/22 05:24: WBC 5.8, RBC 2.67 L, Hgb 7.8 L, Hct 24.2 L, MCV 90.6, MCH 29.2, MCHC 32.2, RDW Std Deviation 59.3 H, RDW Coeff of Singh 17.7 H, Plt Count 180, MPV 8.5 05/02/22 05:24: Sodium 141, Potassium 3.6, Chloride 111 H, Carbon Dioxide 23.0, BUN 14, Creatinine 1.18, Estim Creat Clear Calc 67.02, Est GFR (MDRD) Af Amer 80, Est GFR (MDRD) Non-Af 66, BUN/Creatinine Ratio 11.9, Glucose 80, Calcium 8.3 L, Phosphorus 3.1, Albumin 2.3 L Micro: Microbiology 04/22/22 08:50 Stool Stool Occult Blood (JOVAN) - Final Occult Blood Positive 04/19/22 06:08 Nasal Secretion SARS-CoV-2 & FLU Antigen (Rapid) - Final Physical Exam Const alert, oriented x3 and no apparent distress Constitutional Narrative: I watched him doing therapy and he was not SOB or tachypneic. General Appearance: cooperative Resp normal respiratory effort, normal air movement and clear to auscultation bilaterally Resp Narrative: No conversational dyspnea and he is not tachypneic. Cardio regular rate, regular rhythm, no rub and no gallops Cardio Narrative: Increased resting heart rate however the EKG yesterday showed sinus rhythm and not atrial fibrillation. GI normal to inspection, nondistended, normoactive bowel sounds, soft to palpation and non-tender Extremity General Extremity: edema bilateral (Pitting edema to the groin bilaterally.); Negative for cyanosis Skin General Skin Exam: no breakdown Rashes: no rashes Neuro Neuro Narrative: Strength is improving. He is able to ambulate with crutches up to 120'. Not able to get both legs into bed at the bed height he has at home......even with a sheet to assist. When the bed was lowered 5 he was able to get into the bed using a sheet for the left leg and a stool for the RLE. Still requiring moderate assistance for lower body dressing and minimal assistance for bathing and tub/shower transfer.. He is standby assist for toilet transfer and contact- guard assist for toileting. He is able to do sit to stand transfers on various surfaces at standby assist currently. Psych thought process normal and cooperative Appearance: appropriate Assessment & Plan Assessment/Plan (1) Debility: PLAN: Continue PT/OT. (2) Generalized weakness: PLAN: Getting stronger but, not able to get himself into bed yet at the height of the bed he has at home. Mod assist yet for LB dressing. Able to ascend/descend 3 steps with 2 handrails at standby assist. Getting closer to being able to DC safely home. (3) IgA nephropathy: PLAN: Creat is now back down after recent Acute on chronic renal failure. Severe proteinuria, 2.4 GM/day, causing pitting edema of both LE's to the groin requiring more exertion to move/ambulate and get into bed. Since the creat is stable at 1.[address] Spencer starting Bumex to start diuresing. He is trying to keep his legs elevated more to help with the edema. ANAID wraps are in place and Circaids have been ordered. May need lymphedema pumps going forward if edema can not be controlled with diuresis, compression and elevation. (4) Gouty arthritis: PLAN: Much better. The swelling in the hands is down significantly and there is no longer erythema or increased warmth to touch. The Left knee is less painful since the injection but he has tricompartmental osteoarthritis and will eventually need a total knee replacement. Would like to get his weight and edema control prior to any planned surgeries. (5) Hyperuricemia: PLAN: He is currently on prednisone 10 mg daily and colchicine 0.6 mg daily for gout. Since the acute gouty arthritis has resolved and he is on prophylaxis with prednisone and colchicine will start allopurinol 100 mg daily today. (6) Leg edema: (7) Acute on chronic anemia: PLAN: Hemoglobin is stable at 7.8. He had mild gastritis and duodenitis on his EGD done while he was on the acute side of the hospital and he is currently on Protonix. There was no active bleeding at the time of the EGD but his stools after arriving on rehab were positive for blood. He will need to follow-up with Dr. Romero as an outpatient. No need for transfusion at this time. (8) Tachycardia: PLAN: EKG was obtained yesterday for tachycardia and it is sinus tachycardia and not atrial fibrillation. It is episodic. Charges/Coding Visit Charges Inpatient E&M: 36811 Subs Hosp L2
[2022-05-02] MEDS: Potassium Chloride Oral Tablet 20 MEQ 40 MEQ PO (14:30)
[2022-05-02] MEDS: Bumetanide 0.5 MG Tablet 1 MG PO (14:30)
[2022-05-02 14:49] LABS: Anion Gap 9 (5-15); BUN 16 mg/dL (7-18); BUN/Creat Ratio 12.1 RATIO (10-20); Calcium,Total 8.6 mg/dL (8.5-10.1); Chloride 109 mmol/L (98-107); Creatinine, Serum 1.32 mg/dL (0.70-1.30); EST Glomerular Filtration Rate 58 mL/min (>60); Est Glom Filt Rate - Afr Amer 71 mL/min (>60); Estimated Creatinine Clearance 59.91 ml/min; Glucose 148 mg/dL (74-106); Potassium 3.8 mmol/L (3.5-5.1); Sodium Level 139 mmol/L (136-145)
[2022-05-02 19:13] VITALS: BP 128/70; PULSE 92; RESP 18; TEMP 36.7; O2SAT 98
[2022-05-02] MEDS: traZODone 100 MG Tablet PO (19:47)
[2022-05-02 22:00] VITALS: PULSE 91; RESP 16; O2SAT 98
[2022-05-03] MEDS: Pantoprazole Sodium 40 MG Tablet PO (07:58)
[2022-05-03] MEDS: Sodium Bicarbonate 650 MG Tablet PO ×3 (07:58→17:02)
[2022-05-03] MEDS: Allopurinol 100 MG Tablet PO (07:58)
[2022-05-03] MEDS: SILDENAFIL CITRATE 20 MG TABLET PO (07:58)
[2022-05-03] MEDS: Cholecalciferol (VIT D3) 25 MCG TABLET (1,000 UNITS) 50 MCG PO (07:58)
[2022-05-03] MEDS: Bumetanide 0.5 MG Tablet 1 MG PO (07:58)
[2022-05-03] MEDS: Sertraline 50 MG Tablet PO (07:58)
[2022-05-03] MEDS: Ascorbic Acid 500 MG Tablet PO ×2 (07:58→22:22)
[2022-05-03] MEDS: predniSONE 10 MG Tablet PO (07:58)
[2022-05-03] MEDS: Potassium Chloride Oral Tablet 20 MEQ PO (07:58)
[2022-05-03] MEDS: Colchicine 0.6 MG TABLET PO (07:58)
--- NOTE | 2022-05-03 08:25 | CASEMGMT ---
Social Work Received return call from requesting DC 05/05. IDT agreeable. SW confirmed [facility] outpatient PT/OT and no DME needs. will transport. Plan: DC home with 05/05, [facility] PT/OT Jackie Wood, TEAMCENTER CONSULTANT CORE WORKER
[2022-05-03 09:42] VITALS: BP 145/92; PULSE 99; RESP 18; TEMP 36.9; O2SAT 97
[2022-05-03 09:45] VITALS: PULSE 99; RESP 18; O2SAT 97
[2022-05-03] MEDS: Ferrous Sulfate 325 MG Tablet PO (12:04)
[2022-05-03 22:20] VITALS: BP 123/63; PULSE 85; RESP 16; TEMP 37.4; O2SAT 96
[2022-05-03] MEDS: traZODone 100 MG Tablet PO (22:22)
[2022-05-04 05:43] LABS: Hematocrit 24.1 % (40-54); Hemoglobin 7.8 g/dL (13.0-16.5)
[2022-05-04 06:14] LABS: Albumin, Serum 2.5 g/dL (3.2-5.0); BUN 17 mg/dL (7-18); Calcium,Total 8.5 mg/dL (8.5-10.1); Chloride 110 mmol/L (98-107); Creatinine, Serum 1.21 mg/dL (0.70-1.30); EST Glomerular Filtration Rate 64 mL/min (>60); Est Glom Filt Rate - Afr Amer 78 mL/min (>60); Estimated Creatinine Clearance 65.36 ml/min; Glucose 87 mg/dL (74-106); Magnesium 1.7 mg/dL (1.6-2.6); Phosphorus 3.9 mg/dL (2.5-4.9); Potassium 3.5 mmol/L (3.5-5.1); Sodium Level 143 mmol/L (136-145)
[2022-05-04] MEDS: Colchicine 0.6 MG TABLET PO (07:48)
[2022-05-04] MEDS: Sodium Bicarbonate 650 MG Tablet PO ×2 (07:48→12:18)
[2022-05-04] MEDS: Allopurinol 100 MG Tablet PO (07:49)
[2022-05-04] MEDS: Potassium Chloride Oral Tablet 20 MEQ PO (07:49)
[2022-05-04] MEDS: predniSONE 10 MG Tablet PO (07:49)
[2022-05-04 09:07] VITALS: BP 144/83; PULSE 95; RESP 16; TEMP 36.9; O2SAT 94
[2022-05-04] MEDS: Ascorbic Acid 500 MG Tablet PO ×2 (10:14→21:33)
[2022-05-04] MEDS: Sertraline 50 MG Tablet PO (10:14)
[2022-05-04] MEDS: Cholecalciferol (VIT D3) 25 MCG TABLET (1,000 UNITS) 50 MCG PO (10:14)
[2022-05-04] MEDS: Bumetanide 0.5 MG Tablet 1 MG PO (10:15)
[2022-05-04] MEDS: Pantoprazole Sodium 40 MG Tablet PO (10:15)
[2022-05-04] MEDS: Magnesium Chloride 64 MG Delay Rel.Tablet 128 MG PO (10:16)
[2022-05-04] MEDS: SILDENAFIL CITRATE 20 MG TABLET PO (10:16)
--- NOTE | 2022-05-04 10:54 | PCM.PROGNOTE ---
Subjective Subjective Aldo was seen on team rounds today. His Mora was present for rounds in the room. Afebrile VSS Maintaining appropriate oxygen saturation on RA Good urine OP Discussed with nursing - no problems that need addressed Reviewed the PT/OT notes Medication list reviewed. No constipation and diarrhea is better with the discontinuation of the mag supplement. He still has stiffness in his hands but he can not do the riffler tender test and he could not do this at admission. He is able to riffler tender the crutches better. The edema is decreased and he has no erythema and no increased warmth to touch. Denies chest pain, lightheadedness, dyspnea on exertion, orthopnea. All lab was personally reviewed. HGB is stable at 7.8. K is 3.5. Creat is stable at 1.21. Mag is 1.7. Objective Data Objective Data Vital Signs: Vital Signs Temp Pulse Resp BP Pulse Ox O2 Del Method 98.5 F 95 16 144/83 H 94 Room Air 05/04/22 09:07 05/04/22 09:07 05/04/22 09:07 05/04/22 09:07 05/04/22 09:07 05/04/22 09:07 Oxygen Delivery Method Room Air Weight: 306 lb 0.026 oz Body Mass Index (BMI) 43.2 Intake & Output: Intake and Output for Last 24 Hours 05/02/22 05/03/22 05/04/22 23:59 23:59 23:59 Intake Total 2180 / 2180 2090 / 2090 150 / 150 Output Total 3350 / 3350 2832 / 2832 625 / 625 Balance -1170 / -1170 -742 / -742 -475 / -475 Lab / Micro Data Result Diagrams: 05/04/22 05:23 05/04/22 05:23 Labs: Laboratory Results - last 24 hr 05/04/22 05:23: Hgb 7.8 L, Hct 24.1 L 05/04/22 05:23: Sodium 143, Potassium 3.5, Chloride 110 H, Carbon Dioxide 28.0, Anion Gap Cancelled, BUN 17, Creatinine 1.21, Estim Creat Clear Calc 65.36, Est GFR (MDRD) Af Amer 78, Est GFR (MDRD) Non-Af 64, BUN/Creatinine Ratio 14.0, Glucose 87, Calcium 8.5, Phosphorus 3.9, Magnesium 1.7, Albumin 2.5 L Micro: Microbiology 04/22/22 08:50 Stool Stool Occult Blood (JOVAN) - Final Occult Blood Positive 04/19/22 06:08 Nasal Secretion SARS-CoV-2 & FLU Antigen (Rapid) - Final Physical Exam Const alert, oriented x3 and no apparent distress Constitutional Narrative: Smiling and laughing with his and staff General Appearance: cooperative Resp normal respiratory effort and clear to auscultation bilaterally Cardio regular rate, regular rhythm, no rub and no gallops GI normal to inspection, nondistended, normoactive bowel sounds, soft to palpation and non-tender Extremity General Extremity: edema Assessment & Plan Assessment/Plan (1) Debility: (2) Gouty arthritis: (3) Leg edema: (4) IgA nephropathy: (5) Hypoalbuminemia: (6) Hyperuricemia: PLAN: Plan 1. Discharge home tomorrow. Will have outpatient therapy in [place]. 2. Follow-up with Dr. Spencer in 1 to 2 weeks post discharge 3. 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 Plan on continuing prednisone 10 mg daily and colchicine 0.6 mg daily to help prevent acute recurrence of gouty arthritis since we have now initiated allopurinol. 5. Continue sertraline at 50 mg p.o. daily. Dose can be increased as an outpatient but currently is depression is adequately managed and his affect is much improved. 6. Decrease sodium bicarb tabs to twice daily 7. Increase the potassium to 20 BID - will need a BMP in 1 week. 8. Mora was given a copy a list of foods high in magnesium to work into his diet. Will not discharge on a magnesium supplement as he had severe diarrhea. 9. Change the MiraLAX to daily as needed constipation 10. Mora was given a copy of the Circaid form and she will call to inquire why they have not called her yet to pay for the compression stockings. Charges/Coding Visit Charges Inpatient E&M: 09314 Subs Hosp L2
--- NOTE | 2022-05-04 13:09 | CASEMGMT ---
Social Work IDT met with patient and for Team meeting. Discussed patient's progress in PT/OT/SN. Confirmed all DC plans set for 05/05. No other issues noted. Jackie Wood MSW CISCO CONSULTANT
--- NOTE | 2022-05-04 17:21 | DCINST_ITS ---
Discharge Instructions Diet Discharge Diet: - (Low salt (< 3GM of salt daily), low fat, low purines and high in magnesium.) Activity Discharge Activity: May Not Drive and May Shower Return to work on:: 06/10/22 May resume sexual activity in: No Restrictions Weight Bearing Status: Full weight bearing Keep extremity elevated above heart level: Legs Dressing / Incision Call your doctor if you observe: Fever of 101 or Higher, Inability to urinate, Shortness of breath, Dizziness, Fainting spells, Chest pain, Increased palpitations (irregular heartbeat), Calf discomfort, Uncontrolled pain and - (blood in the urine) Follow Up Care Please Follow Up With: Basil Romero MD When: within 1-2 weeks post DC Test Results: Test results from this visit will be discussed in further detail at your follow- up appointment, if applicable. Pending Tests Upon Discharge: none Discharge Plan Admission Admit Date/Time: 04/14/22 18:40 Primary Reason for Your Visit: Debility due to generalized weakness and severe multi-joint gouty arthritis Attending Provider: Adina Solorzano Primary Care Provider: Basil Romero Consulting Providers: Jayme Salcido Instructions Forms: Work Excuse Patient Instructions: Living with Osteoarthritis, What Is Gout?, Treating Gout Attacks, Depression Affects Your Mind ..., Depression and the Brain's ..., Depression: Tips to Help Yourself, Eating to Prevent Gout, Knee Osteoarthritis, ED Osteoarthritis Additional Instructions / Restrictions: 1. It has been a bad couple months for you! You did very well in rehab and your strength has improved significantly. you have a lot going on. You recently had a hip replaced, you had acute kidney failure, you found out you have a chronic kidney disease called IGA nephropathy, you had a severe gouty arthritis attack that affected multiple joints, you had to have your knee injected, you are anemic and you have a lot of swelling in your legs and this makes it more difficult to walk and they feel tight all the time. WOW! It is no wonder that you got depressed BUT, you are doing well on the 2 medications you are taking to help with the depression. Trazodone that you take at bedtime is an antidepressant but, we are using it for its side effect mostly, it makes you sleepy. It is not addictive and it may also be helping with some of the other depressive symptoms. You takes Zoloft (also called Sertraline) in the morning and your mood has definitely improved. You are eating well and smiling and have a better outlook on your future. I recommend you continue the Zoloft for the next 6 months and then if you are feeling good, sleeping good, in a good mood and not irritable, you are getting things done and have good motivation you can try cutting the dose in half for a month and if everything is still going well you can try stopping the medication. Please discuss these changes with Dr. Romero prior to decreasing doses or stopping medications. If you are sleeping well when you go home you can try cutting the Trazodone in 1/2 or going without. Sleep is important in healing so if you need it to sleep take it. 2. 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 This type of arthritis should be managed by a marketing teacher. The [facility] is a good place to go. Currently you are taking Allopurinol to decrease the uric acid in the blood. You are also taking prednisone 10 mg a day and colchicine 0.6 mg a day to decrease inflammation while we are adding the Allopurinol Prednisone is a steroid and has a lot of side effects so you do not want to have to stay on this for a long period of time. The marketing teacher will taper you off the steroid when appropriate. DO NOT suddenly stop the Prednisone because you will get really sick......your BP will drop, you will feel very tired, the swelling in the hands and feet will increase and you hurt all over. This medicine must be tapered off. 3. Try and lose some weight, it will help with the pain due to arthritis and make it easier to exercise. 4. If you continue to have a lot of swelling in your legs and it is not going away with compression, diuretics and elevation of the legs consider being seen in the wound care center at the hospital to talk about lymphedema pumps to help decrease the swelling. Just call [phone] and ask to be connected to the wound care center and tell them you were referred for lymphedema pumps. 5. When your legs are swollen it will cause the skin to dry out. This will lead to cracks in the skin and this will let the bacteria that normally lives on the skin into the cracks and it will lead to infection. Make sure to moisturize your legs at least once a day to prevent dry skin/infections. Eucerin Intensive Repair is a very good moisturizer. 6. I have given you a work excuse to return to work on June 10 but, if you are not ready at that time you can ask Dr. Romero for a new work excuse. I will be sending a copy of the discharge summary to Dr. Romero and Dr. Spencer. 7. you are going to need a Left knee replacement at some point. There are 3 compartments in the knee and you have severe osteoarthritis in all 3 compartments. Losing weight will help keep your joints more healthy. Weight is easy to gain and very hard to lose.......don't be in a hurry. Losing 1-2 lbs a week is good. The dieticians here at the hospital run a Program called [employer]. If you need help with your diet Dr. Romero can write a referral for you to the program. 8. Thank you for all your hard work! If you ever need our services again we will be here for you. If you have any questions after you leave rehab please do not hesitate to c all me at: Office: [phone] CELL: [phone] PS: The orthopedic doctor who injected your knee was Dr. Salcido. He has an office at [facility] in [place] if you need his services in the future. Discharge Orders/Prescriptions Prescriptions: New potassium chloride [Klor-Con M20] 20 mEq Tablet,Er Particles/Crystals 20 meq PO DAILYCM Qty: 60 0RF allopurinol 100 mg Tablet 100 mg PO DAILYCM Qty: 30 0RF colchicine 0.6 mg tablet 0.6 mg PO DAILY Qty: 30 0RF bumetanide 0.5 mg Tablet 1 mg PO DAILY Qty: 60 0RF oxycodone 5 mg Tablet 5 mg PO Q4H PRN PRN (Reason: Pain Score 6-10) 7 Days Qty: 20 0RF trazodone 100 mg Tablet 100 mg PO QHS Qty: 30 0RF sertraline 50 mg Tablet 50 mg PO DAILY Qty: 30 0RF prednisone 10 mg tablet 10 mg PO DAILY Qty: 30 0RF Continued sildenafil (pulm.hypertension) 20 mg tablet 1 tab PO DAILY Label Comments: TAKE 1 TABLET BY MOUTH NEEDED cholecalciferol (vitamin D3) [Vitamin D3] 50 mcg (2,000 unit) tablet 1 tab DAILY Label Comments: 1 tablet by mouth once a day acetaminophen [Tylenol] 325 mg Tablet 650 mg PO Q4H PRN PRN (Reason: Fever, pain 1-10) Qty: 0 0RF ascorbic acid (vitamin C) 500 mg tablet 500 mg PO BID ferrous sulfate 325 mg (65 mg iron) tablet,delayed release (DR/EC) 325 mg PO QODAY losartan 50 mg tablet 1 tab PO DAILY Qty: 30 0RF pantoprazole [Protonix] 40 mg tablet,delayed release (DR/EC) 40 mg PO DAILY Qty: 30 0RF Changed polyethylene glycol 3350 17 gram powder in packet 17 g PO DAILY PRN (Reason: Constipation) Qty: 1 0RF sodium bicarbonate 650 mg tablet 650 mg PO BID Qty: 60 0RF Rx Instructions: Take this medication with a meal Discontinued potassium chloride 10 mEq tablet extended release 2 tab PO DAILY Label Comments: 2 tablet by mouth once a day albuterol sulfate 2.5 mg /3 mL (0.083 %) Solution For Nebulization 2.5 mg inhalation Q2H PRN PRN (Reason: Dyspnea, wheezing) Qty: 0 0RF prednisone 10 mg tablet 10 mg PO DAILY Rx Instructions: 30 mg for 4 days, 20 mg for 4 days, and 10 mg for 5 days sennosides-docusate sodium [Stool Softener-Stimulant Laxat] 8.6-50 mg tablet 2 tab PO BID No Action allopurinol 100 mg tablet 100 mg PO TIDCM Rx Instructions: Uptitrate if kidney function returns to normal. Other Ambulatory Orders: CBC-Complete Blood Cnt No Diff (Routine) Timeframe: 20220511 Facility: [facility] - Location: Laboratory Ordered By: Dr. Adina Solorzano Renal Profile (Routine) Timeframe: 20220511 Facility: [facility] - Location: Laboratory Ordered By: Dr. Adina Solorzano Referrals / Follow Up: [facility] [Other] (For Tophaceous Gout Referral faxed Office request that you call and make appointment ) Nany Spencer MD [Med Staff - Consulting] - (06/06/22 3 pm @ [place] location. Expect new patient information in the mail) Basil Romero MD [Primary Care Provider] - (Called to schedule appt. Office will call within 24 hrs to schedule appt) Disposition Disposition (needs filled in before D/C Order can be placed): Home, Self Care
[2022-05-04] MEDS: traZODone 100 MG Tablet PO (21:33)
[2022-05-04 22:00] VITALS: BP 123/75; PULSE 88; RESP 16; TEMP 37.2; O2SAT 96
[2022-05-05 07:59] VITALS: BP 122/80; PULSE 94; RESP 16; TEMP 36.7; O2SAT 95
[2022-05-05] MEDS: Colchicine 0.6 MG TABLET PO (08:00)
[2022-05-05] MEDS: Pantoprazole Sodium 40 MG Tablet PO (08:00)
[2022-05-05] MEDS: Cholecalciferol (VIT D3) 25 MCG TABLET (1,000 UNITS) 50 MCG PO (08:00)
[2022-05-05] MEDS: Sodium Bicarbonate 650 MG Tablet PO (08:00)
[2022-05-05] MEDS: Allopurinol 100 MG Tablet PO (08:01)
[2022-05-05] MEDS: Potassium Chloride Oral Tablet 20 MEQ PO (08:01)
[2022-05-05] MEDS: Bumetanide 0.5 MG Tablet 1 MG PO (08:01)
[2022-05-05] MEDS: SILDENAFIL CITRATE 20 MG TABLET PO (08:01)
[2022-05-05] MEDS: Ascorbic Acid 500 MG Tablet PO (08:02)
[2022-05-05] MEDS: predniSONE 10 MG Tablet PO (08:02)
[2022-05-05] MEDS: Sertraline 50 MG Tablet PO (08:02)
--- NOTE | 2022-05-05 12:10 | PCM.DC.SUM ---
Providers Date of Admission: 04/14/22 Date of Discharge: 05/05/22 Primary Care Physician: Dr. Basil Romero MD Consultations 04/20/22 19:16 Consult: Orthopedics Routine Consulting Provider: Jayme Salcido Reason for Consult: lt knee pain EMERGENT Consult: No MD Notified: Yes Date Notified: 04/20/22 Time Notified: 19:16 Method of Notification: Verbal Method of Consult:: In-Person Reason For Visit: ACUTE KIDNEY INJURY, ACUTE ANEMIA Diagnosis Discharge Diagnosis (1) Debility: Status: Acute Code(s): R53.81 - Other malaise Plan: Due to recent total hip replacement, acute renal failure, severe anemia, acute gouty arthritis involving multiple joints and generalized weakness. Will have OP PT/OT at [facility]. (2) Generalized weakness: Status: Acute Code(s): R53.1 - Weakness (3) Acute renal failure superimposed on chronic kidney disease: Status: Resolved Code(s): N17.9 - Acute kidney failure, unspecified; N18.9 - Chronic kidney disease, unspecified Plan: Due to IGA nephropathy (new diagnosis) CREAT at [place] is 1.21 which makes him stage II CRF. Will follow up with Dr. Johanna martinez [place]. (4) CKD (chronic kidney disease), stage III: Status: Inactive Code(s): N18.30 - Chronic kidney disease, stage 3 unspecified Plan: The CREAT at RI is 1.21 which is consistent with CRF stage II (5) IgA nephropathy: Status: Suspected Code(s): N02.8 - Recurrent and persistent hematuria with other morphologic changes Plan: Has approximately 2.4 GM of proteinuria a day. Creatinine at discharge is down to 1.21 and is stable. The GFR is 64 and his estimated creatinine clearance is 65.36 which is consistent with stage II chronic renal failure. He will be following up with Dr. Johanna martinez [place]. (6) Acute on chronic anemia: Status: Chronic Code(s): D64.9 - Anemia, unspecified Plan: Due to recent THR and gross hematuria. HGB is stable at 7.8 at RI and he is asymptomatic. (7) Gouty arthritis: Status: Acute Code(s): M10.9 - Gout, unspecified Plan: Multiple joints affected. He will be following up with the [facility] in [place] for management of chronic tophaceous gout. In the future he should have prophylaxis prior to any surgeries to prevent acute gouty arthritis. (8) Chronic tophaceous gout: Status: Inactive Code(s): M1A.9XX1 - Chronic gout, unspecified, with tophus (tophi) (9) Hyperuricemia: Status: Inactive Code(s): E79.0 - Hyperuricemia without signs of inflammatory arthritis and tophaceous disease Plan: Started on Allopurinol 100 mg on 05/02/2022 after a prolonged episode of acute gouty arthritis involving multiple joints. He is being discharged on Prednisone 10 mg daily and Colchicine 0.6 mg daily and is still having pain in both hands and elbows at [place] but, swelling in the UE's is markedly improved and there is no longer any redness or increased warmth to touch of the MCP's. Can not take NSAID's due to CRF/IGA nephropathy. (10) Gout of left knee: Status: Inactive Code(s): M10.9 - Gout, unspecified Plan: Injected with Medrol [address] Salcido on 04/21/22. (11) Left knee DJD: Status: Inactive Code(s): M17.12 - Unilateral primary osteoarthritis, left knee Plan: Severe tricompartmental OA on XRAY. Likely will need a TKR in the future. (12) Depression: Status: Acute Code(s): F32.A - Depression, unspecified Plan: Started on Sertraline 50 mg daily and Trazodone 100 mg at HS at admission to rehab. Tearful, not eating, not sleeping, not talking at admission. At [place] he is much better. (13) Leg edema: Status: Acute Code(s): R60.0 - Localized edema Plan: Due to combined effects of severe proteinuria/hypoalbuminemia, obesity, venous insufficiency. Started on Bumex 1 mg daily and will follow up with Dr. Spencer to manage diuretics and IGA nephropathy. Compression stockings have been ordered and if diuretics and compression are not solving the edema problem he should be referred for lymphedema pumps. (14) Hypoalbuminemia: Status: Acute Code(s): E88.09 - Other disorders of plasma-protein metabolism, not elsewhere classified (15) Proteinuria: Status: Acute Code(s): R80.9 - Proteinuria, unspecified Plan: Severe, estimated to be about 2.4 GM/day. (16) Venous insufficiency (chronic) (peripheral): Status: Inactive Code(s): I87.2 - Venous insufficiency (chronic) (peripheral) (17) Morbid obesity: Status: Inactive Code(s): E66.01 - Morbid (severe) obesity due to excess calories Plan: Recommended weight loss and regular exercise to help with off loading of joints. Seen by the business solutions architect while in rehab. (18) Hypomagnesemia: Status: Resolved Code(s): E83.42 - Hypomagnesemia Plan: Does not tolerate mag supplement due to diarrhea. Was given a list of foods high in magnesium at [place] to work into his diet. Mag at RI was WNL. Plan 1. Discharge home tomorrow. Will have outpatient therapy in [place]. 2. Follow-up with Dr. Spencer in 1 to 2 weeks post discharge 3. Follow-up at the [facility] for treatment of tophaceous gout - I discussed his case with one of the rheumatologists and they are going to get him in to be seen before 4. Plan on continuing prednisone 10 mg daily and colchicine 0.6 mg daily to help prevent acute recurrence of gouty arthritis since we have now initiated allopurinol. 5. Continue sertraline at 50 mg p.o. daily. Dose can be increased as an outpatient but currently is depression is adequately managed and his affect is much improved. 6. Decrease sodium bicarb tabs to twice daily 7. Increase the potassium to 20 BID - will need a BMP in 1 week. 8. Mora was given a copy a list of foods high in magnesium to work into his diet. Will not discharge on a magnesium supplement as he had severe diarrhea. 9. Change the MiraLAX to daily as needed constipation 10. Mora was given a copy of the [employer] form and she will call to inquire why they have not called her yet to pay for the compression stockings. Medications at Discharge Home Medications cholecalciferol (vitamin D3) 50 mcg (2,000 unit) tablet (Vitamin D3) 1 tab DAILY Supplement 04/07/22 sildenafil (pulm.hypertension) 20 mg tablet 1 tab PO DAILY BP 04/07/22 acetaminophen 325 mg tablet (Tylenol) 650 mg PO Q4H PRN PRN Fever, pain 1-10 #0 tabs 04/13/22 allopurinol 100 mg tablet 100 mg PO TIDCM Gout 04/13/22 ascorbic acid (vitamin C) 500 mg tablet 500 mg PO BID Supplement 04/13/22 ferrous sulfate 325 mg (65 mg iron) tablet,delayed release 325 mg PO QODAY Supplement 04/13/22 allopurinol 100 mg tablet 100 mg PO DAILYCM #30 tabs 05/04/22 bumetanide 0.5 mg tablet 1 mg PO DAILY #60 tabs 05/04/22 colchicine 0.6 mg tablet 0.6 mg PO DAILY #30 tabs 05/04/22 losartan 50 mg tablet 1 tab PO DAILY BP #30 tabs 05/04/22 oxycodone 5 mg tablet 5 mg PO Q4H PRN PRN Pain Score 6-10 7 days #20 tabs 05/04/22 pantoprazole 40 mg tablet,delayed release (Protonix) 40 mg PO DAILY Stomach acid #30 tabs 05/04/22 polyethylene glycol 3350 17 gram oral powder packet 17 g PO DAILY PRN Constipation #1 ea 05/04/22 potassium chloride 20 mEq tablet,extended release(part/cryst) (Klor-Con M) 20 meq PO DAILYCM #60 tabs 05/04/22 sertraline 50 mg tablet 50 mg PO DAILY #30 tabs 05/04/22 sodium bicarbonate 650 mg tablet 650 mg PO BID #60 tabs 05/04/22 trazodone 100 mg tablet 100 mg PO QHS #30 tabs 05/04/22 prednisone 10 mg tablet 10 mg PO DAILY #30 tabs 05/05/22 Hospital Course Operations None and - (Had a recent THR at [facility] on 03/29/2022.) Procedures - (The left knee was injected with Depo-Medrol [address] Salcido on 04/21/2022 for severe pain inhibiting his ability to ambulate.) Summary of Care Provided Minutes Spent on Discharge: 45 Hospital Course: GAMA AGUILERA, is a 61 YO M with a past medical history of chronic renal failure stage III, hypertension, morbid obesity, venous insufficiency, cough and chronic anemia who was transferred to [facility] progressive care unit on 04/07/2022 from [facility] for generalized weakness, shortness of breath, low-grade fever and gross hematuria for 4 days.?He had a right hip replacement on 03/29/2022.? He was started on Lasix 1 year ago by his PCP for edema of the legs. Etiology of the CRF was not defined. Significant lab at admission included a hemoglobin of 7.2 with an MCV of 84 and elevated platelets at 560,000.? Stool for occult blood was negative.? He received 1 unit of packed red blood cells at [facility] prior to transfer.? He was placed on Protonix 40 mg twice daily and Dr. Romero was consulted.? BUN and creatinine were 50/4.7 and his baseline is generally 1.8-2.3.? In addition to GI, nephrology (Dr. Spencer) was also consulted.? ? ? Dr. Romero performed upper endoscopy on 04/09/22 and found localized mildly erythematous mucosa without bleeding in the prepyloric region of the stomach and localized mildly erythematous mucosa without active bleeding and no stigmata of bleeding in the duodenal bulb.? Nephrology felt he should be evaluated for acute GN because of gross hematuria in addition to rapid decline in renal function.? Appropriate labs were ordered.? He had a CT-guided kidney bx on 04/10/22.? EARLE screen was negative.? C-ANCA was normal at less than 1:20, Kavita 1 antibody was negative and so was SSA, SSB and SM antibodies.? Double-stranded DNA antibody was negative and glomerular basement membrane antibody was normal at less than 0.2.? C3 was elevated at 243, C4 was elevated at 64, free kappa light chain was increased at 64.6 and the free lambda light chain was increased at 37.4.? Pathology on the kidney biopsy showed focal increased mesangium with granular IgA and C3 immunofluorescence and paramesangial deposits with mild interstitial fibrosis and thickened arterioles. Dr. Spencer discussed the pathology from the kidney biopsy with the pathologist and felt the diagnosis was IgA nephropathy.?The patient related that he had gross hematuria about 1 year ago but, it resolved on it's own. Gross hematuria resolved and the creat improved to 2.[address] Spencer did not feel high dose steroids were necessary. While in the hospital he developed acute gouty arthritis in multiple joints including both hands, both elbows and the left knee. Uric acid on 04/07/22 was 11.7. Unfortunately he was started on Allopurinol 300 mg daily while on the acute side of the hospital and the acute gouty arthritis got much worse. The UA dropped suddenly to 9.3. While in the hospital he was seen by PT/OT and admission to acute rehab was recommended. He was transferred to rehab on 04/14/22 for 3 hours of therapy a day to restore function at or near his level prior to admission for acute on chronic renal failure. At admission to rehab Allopurinol was discontinued and Aldo was placed on a low purine diet, pain relievers and prednisone. He can not be on NASID's due to chronic renal failure. He was also given 1.2 mg of Colchicine and 0.6 mg was ordered daily. His hands at the time were very edematous, erythematous and diffusely painful, as were the BL elbows. He has small tophi in the joints of his hands and he had olecranon effusions BL. The left knee was swollen but not reddened. There was increased warmth to touch. A plain XRAY of the Left knee was obtained and showed tricompartmental osteophytic changes with severe narrowing of the medial joint space, mild to moderate narrowing of the lateral joint space and moderate narrowing of the patellofemoral joint space. There were no acute osseous abnormalities seen. He was unable to do what was asked of him in therapy because he was unable to bear much weight on the L leg. Dr. Saclido was consulted and on 04/21/22 he injected the left knee with 40 mg of Depo-Medrol. The pain improved to the point where his performance in therapy improved significantly. Swelling, warmth to touch and erythema gradually resolved. He still had stiffness in the elbows and both hands. Prednisone was tapered down to 10 mg a day and he was continued on Colchicine 0.6 mg daily. CBC and renal function are stable. Prior to DC he was started on Allopurinol 100 mg daily and an appt was made for him to be seen at the [facility] in [place] for management of tophaceous gout. Creat came down to 1.2 which is actually better than his baseline. At the time of discharge Aldo was able to ascend three 4 inch steps at contact-guard assist with 1 crutch and 1 handrail. He was able to do 14 sit to stands in 30 seconds at standby assist which is up from to stands in 30 seconds at admission. He was able to complete the TUG test (turn/up and go) test in 22.63 seconds which was down from 104.68 seconds at admission to rehab. He had ambulated up to 263 feet with crutches at supervision/standby assist on various surfaces. He was independent with eating, grooming and upper body dressing. Still requiring moderate assistance with lower body dressing and minimal assistance with bathing. He is contact-guard assist for tub/shower transfer and was able to stand from an elevated commode at standby assist. He is able to complete his posterior hygiene with min assist for thoroughness. He is able to manage his depends and shorts up and over his hips to his waist at standby assist. He has less edema of the upper thighs since the Bumex was started. He will likely need a higher dose of Bumex but, need to go slow with diuresis because we do not want to cause IV volume depletion and worsening renal function. He was measured for goo compression stockings and the order was faxed to the company. His will follow up with this. He has hypoalbuminemia and spills approximately 2.4 GM of protein daily in the urine. If edema fails to improve with diuresis and compression he may need referred for lymphedema pumps. I explained that this can be dealt with in the wound care center at [facility]. Aldo was discharged home on 05/05/2022. He will have outpatient PT/OT at [facility] and he had no DME needs. He will follow-up with Dr. Spencer for IgA nephropathy, [facility] to manage the tophaceous gout and His PCP, Dr. Treva Romero. He was given a lab requisition to obtain a CBC and BMP on 05/13/22. Physical Exam Const alert, oriented x3 and no apparent distress Constitutional Narrative: Smiling and happy to be going home. No tears, sleeping well and has a good appetite. General Appearance: cooperative HEENT normocephalic, head/scalp atraumatic and moist oral mucous membranes Eyes PERRL and EOMs intact bilaterally Eyes Narrative: No scleral icterus and no conjunctival injection. No discharge from the eyes and no mattering of the eyelids. Neck supple General: trachea midline Resp normal respiratory effort and clear to auscultation bilaterally Resp Narrative: Mildly diminished in the bases which I suspect is secondary to body habitus. Effort and Inspection: Negative for tachypneic, respiratory distress, labored or uses accessory muscles Cardio regular rate, regular rhythm, no rub and no gallops GI normal to inspection, nondistended, normoactive bowel sounds, soft to palpation and non-tender GI Narrative: No guarding with palpation. Extremity no calf tenderness Extremity Narrative: Still with pitting edema of the legs to the groin but, the posterior thigh edema is less and the skin is softer and less boggy. He is now on a diuretic. the edema in the hands is much improved with tx of acute gout and the warmth to touch and erythema have resolved. General Extremity: edema Skin General Skin Exam: no breakdown Rashes: no rashes Neuro CN's II-XII intact bilaterally and no focal motor deficits Coordination / Balance: [id number] test normal Psych affect normal Psych Narrative: He is calm, makes good eye contact when conversing with him, he is pleasant and engaged in his conversations, talkative, no longer tearful and withdrawn. Appearance: appropriate Weight / BMI Weight Weight: 306 lb 0.026 oz Body Mass Index (BMI) 43.2 ABG / Lab / Microbiology Data Result Diagrams: 05/04/22 05:23 05/04/22 05:23 Microbiology: Microbiology 04/22/22 08:50 Stool Stool Occult Blood (JOVAN) - Final Occult Blood Positive 04/19/22 06:08 Nasal Secretion SARS-CoV-2 & FLU Antigen (Rapid) - Final D/C Instructions Discharge Diet: - (Low salt (< 3GM of salt daily), low fat, low purines and high in magnesium.) Return to work on: 06/10/22 May resume sexual activity in: No Restrictions Weight Bearing Status: Full weight bearing Keep extremity elevated above heart level: Legs Call your doctor if you observe: Fever of 101 or Higher, Inability to urinate, Shortness of breath, Dizziness, Fainting spells, Chest pain, Increased palpitations (irregular heartbeat), Calf discomfort, Uncontrolled pain and - (blood in the urine) Pending Tests Upon Discharge: none Please Follow Up With: Basil Romero MD When: within 1-2 weeks post DC Meaningful Use Info Meaningful Use Diagnoses (Choose all that apply): None applicable Discharge Plan Admission Admit Date/Time: 04/14/22 18:40 Primary Reason for Your Visit: Debility due to generalized weakness and severe multi-joint gouty arthritis Attending Provider: Adina Solorzano Primary Care Provider: Basil Romero Consulting Providers: Jayme Salcido Instructions Forms: Work Excuse Patient Instructions: Living with Osteoarthritis, What Is Gout?, Treating Gout Attacks, Depression Affects Your Mind ..., Depression and the Brain's ..., Depression: Tips to Help Yourself, Eating to Prevent Gout, Knee Osteoarthritis, ED Osteoarthritis Additional Instructions / Restrictions: 1. It has been a bad couple months for you! You did very well in rehab and your strength has improved significantly. you have a lot going on. You recently had a hip replaced, you had acute kidney failure, you found out you have a chronic kidney disease called IGA nephropathy, you had a severe gouty arthritis attack that affected multiple joints, you had to have your knee injected, you are anemic and you have a lot of swelling in your legs and this makes it more difficult to walk and they feel tight all the time. WOW! It is no wonder that you got depressed BUT, you are doing well on the 2 medications you are taking to help with the depression. Trazodone that you take at bedtime is an antidepressant but, we are using it for its side effect mostly, it makes you sleepy. It is not addictive and it may also be helping with some of the other depressive symptoms. You takes Zoloft (also called Sertraline) in the morning and your mood has definitely improved. You are eating well and smiling and have a better outlook on your future. I recommend you continue the Zoloft for the next 6 months and then if you are feeling good, sleeping good, in a good mood and not irritable, you are getting things done and have good motivation you can try cutting the dose in half for a month and if everything is still going well you can try stopping the medication. Please discuss these changes with Dr. Romero prior to decreasing doses or stopping medications. If you are sleeping well when you go home you can try cutting the Trazodone in 1/2 or going without. Sleep is important in healing so if you need it to sleep take it. 2. 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 This type of arthritis should be managed by a gas derrick operator. The [facility] is a good place to go. Currently you are taking Allopurinol to decrease the uric acid in the blood. You are also taking prednisone 10 mg a day and colchicine 0.6 mg a day to decrease inflammation while we are adding the Allopurinol Prednisone is a steroid and has a lot of side effects so you do not want to have to stay on this for a long period of time. The gas derrick operator will taper you off the steroid when appropriate. DO NOT suddenly stop the Prednisone because you will get really sick......your BP will drop, you will feel very tired, the swelling in the hands and feet will increase and you hurt all over. This medicine must be tapered off. 3. Try and lose some weight, it will help with the pain due to arthritis and make it easier to exercise. 4. If you continue to have a lot of swelling in your legs and it is not going away with compression, diuretics and elevation of the legs consider being seen in the wound care center at the hospital to talk about lymphedema pumps to help decrease the swelling. Just call [phone] and ask to be connected to the wound care center and tell them you were referred for lymphedema pumps. 5. When your legs are swollen it will cause the skin to dry out. This will lead to cracks in the skin and this will let the bacteria that normally lives on the skin into the cracks and it will lead to infection. Make sure to moisturize your legs at least once a day to prevent dry skin/infections. Eucerin Intensive Repair is a very good moisturizer. 6. I have given you a work excuse to return to work on June 10 but, if you are not ready at that time you can ask Dr. Romero for a new work excuse. I will be sending a copy of the discharge summary to Dr. Romero and Dr. Spencer. 7. you are going to need a Left knee replacement at some point. There are 3 compartments in the knee and you have severe osteoarthritis in all 3 compartments. Losing weight will help keep your joints more healthy. Weight is easy to gain and very hard to lose.......don't be in a hurry. Losing 1-2 lbs a week is good. The dieticians here at the hospital run a Program called [employer]. If you need help with your diet Dr. Romero can write a referral for you to the program. 8. Thank you for all your hard work! If you ever need our services again we will be here for you. If you have any questions after you leave rehab please do not hesitate to call me at: Office: [phone] CELL: [phone] PS: The orthopedic doctor who injected your knee was Dr. Salcido. He has an office at [facility] here in [place] if you need his services in the future. Discharge Orders/Prescriptions Prescriptions: New potassium chloride [Klor-Con M20] 20 mEq Tablet,Er Particles/Crystals 20 meq PO DAILYCM Qty: 60 0RF allopurinol 100 mg Tablet 100 mg PO DAILYCM Qty: 30 0RF colchicine 0.6 mg tablet 0.6 mg PO DAILY Qty: 30 0RF bumetanide 0.5 mg Tablet 1 mg PO DAILY Qty: 60 0RF oxycodone 5 mg Tablet 5 mg PO Q4H PRN PRN (Reason: Pain Score 6-10) 7 Days Qty: 20 0RF trazodone 100 mg Tablet 100 mg PO QHS Qty: 30 0RF sertraline 50 mg Tablet 50 mg PO DAILY Qty: 30 0RF prednisone 10 mg tablet 10 mg PO DAILY Qty: 30 0RF Continued sildenafil (pulm.hypertension) 20 mg tablet 1 tab PO DAILY Label Comments: TAKE 1 TABLET BY MOUTH NEEDED cholecalciferol (vitamin D3) [Vitamin D3] 50 mcg (2,000 unit) tablet 1 tab DAILY Label Comments: 1 tablet by mouth once a day acetaminophen [Tylenol] 325 mg Tablet 650 mg PO Q4H PRN PRN (Reason: Fever, pain 1-10) Qty: 0 0RF ascorbic acid (vitamin C) 500 mg tablet 500 mg PO BID ferrous sulfate 325 mg (65 mg iron) tablet,delayed release (DR/EC) 325 mg PO QODAY losartan 50 mg tablet 1 tab PO DAILY Qty: 30 0RF pantoprazole [Protonix] 40 mg tablet,delayed release (DR/EC) 40 mg PO DAILY Qty: 30 0RF Changed polyethylene glycol 3350 17 gram powder in packet 17 g PO DAILY PRN (Reason: Constipation) Qty: 1 0RF sodium bicarbonate 650 mg tablet 650 mg PO BID Qty: 60 0RF Rx Instructions: Take this medication with a meal Discontinued potassium chloride 10 mEq tablet extended release 2 tab PO DAILY Label Comments: 2 tablet by mouth once a day albuterol sulfate 2.5 mg /3 mL (0.083 %) Solution For Nebulization 2.5 mg inhalation Q2H PRN PRN (Reason: Dyspnea, wheezing) Qty: 0 0RF prednisone 10 mg tablet 10 mg PO DAILY Rx Instructions: 30 mg for 4 days, 20 mg for 4 days, and 10 mg for 5 days sennosides-docusate sodium [Stool Softener-Stimulant Laxat] 8.6-50 mg tablet 2 tab PO BID No Action allopurinol 100 mg tablet 100 mg PO TIDCM Rx Instructions: Uptitrate if kidney function returns to normal. Referrals / Follow Up: [facility] [Other] (For Tophaceous Gout Referral faxed Office request that you call and make appointment ) Nany Spencer MD [Med Staff - Consulting] - (06/06/22 3 pm @ [place] location. Expect new patient information in the mail) Basil Romero MD [Primary Care Provider] - (Called to schedule appt. Office will call within 24 hrs to schedule appt) Disposition Disposition (needs filled in before D/C Order can be placed): Home, Self Care Charges/Coding Visit Charges Inpatient E&M: 82686 Disch Hosp
[2022-05-05] MEDS: Ferrous Sulfate 325 MG Tablet PO (12:22)
[2022-05-05 13:42] VITALS: BP 122/80; PULSE 94; RESP 16; TEMP 36.7; O2SAT 95
--- NOTE | 2022-05-05 13:43 | NURSING ---
Patient discharged at this time. reported his [facility] appt is Aug [address] Solorzano requested the appt to be sooner and the office notified. A . there will speak to Dr. Solorzano in regards to referral for appointment sooner. Family aware.
== END 2022-05-05 13:45 | disposition home or self-care (01) | DRG 554 ==
PROVIDERS: Admitting Provider Internal Medicine; PCP Internal Medicine Infectious Disease; Visit Provider Internal Medicine
DX: M1A.0621 Idiopathic chronic gout, left knee, with tophus (tophi) (principal); N02.8 Recurrent and persistent hematuria with other morphologic changes; Z68.43 Body mass index [BMI] 50.0-59.9, adult; E66.01 Morbid (severe) obesity due to excess calories; D64.9 Anemia, unspecified; N18.2 Chronic kidney disease, stage 2 (mild); M17.12 Unilateral primary osteoarthritis, left knee; I12.9 Hypertensive chronic kidney disease with stage 1 through stage 4 chronic kidney disease, or unspecified chronic kidney disease; I87.2 Venous insufficiency (chronic) (peripheral); M1A.0411 Idiopathic chronic gout, right hand, with tophus (tophi); M1A.0421 Idiopathic chronic gout, left hand, with tophus (tophi); F32.A Depression, unspecified; Z23 Encounter for immunization; Z79.899 Other long term (current) drug therapy; Z79.52 Long term (current) use of systemic steroids; Z96.641 Presence of right artificial hip joint
CPT/HCPCS: 0064A; 36415; 80048; 80069; 82274; 83735; 85014; 85018; 85025; 85027; 87428; 91306; 93005; 97110; 97116; 97162; 97166; 97530; 97535; 97802; 97803; J7050; A4216

== ENCOUNTER → 2022-05-13 | Outpatient (CLI) | payer OTHER, SELFPAY ==
[2022-05-13 10:43] LABS: Hematocrit 29.2 % (40-54); Hemoglobin 9.1 g/dL (13.0-16.5); Mean Corp Hgb Conc 31.2 g/dL (32-36); Mean Corpuscular Hgb 28.9 pg (27.0-32.0); Mean Corpuscular Volume 92.7 fL (80-94); Mean Platelet Vol. 8.6 fl (6.2-12.0); Platelet Count 231 K/mm3 (150-450); RBC Distribution Width CV 17.2 % (11.6-14.6); RBC Distribution Width SD 57.5 fl (35.1-43.9); Red Blood Count 3.15 M/mm3 (4.6-6.2); White Blood Count 7.7 K/mm3 (4.4-11.0)
[2022-05-13 11:02] LABS: BUN 11 mg/dL (7-18); BUN/Creat Ratio 8.5 RATIO (10-20); Calcium,Total 9.1 mg/dL (8.5-10.1); Chloride 112 mmol/L (98-107); Creatinine, Serum 1.29 mg/dL (0.70-1.30); EST Glomerular Filtration Rate 60 mL/min (>60); Est Glom Filt Rate - Afr Amer 72 mL/min (>60); Glucose 92 mg/dL (74-106); Phosphorus 3.1 mg/dL (2.5-4.9); Potassium 3.7 mmol/L (3.5-5.1); Sodium Level 145 mmol/L (136-145)
== END | disposition home or self-care (01) ==
PROVIDERS: PCP Internal Medicine Infectious Disease; Referring Provider Internal Medicine; Visit Provider Internal Medicine
DX: D64.9 Anemia, unspecified (principal); N18.30 Chronic kidney disease, stage 3 unspecified; N02.8 Recurrent and persistent hematuria with other morphologic changes
CPT/HCPCS: 36415; 80069; 85027

== ENCOUNTER → 2022-05-20 | Outpatient (CLI) | payer OTHER, SELFPAY ==
[2022-05-20 11:58] LABS: Anion Gap 9 (5-15); BUN 10 mg/dL (7-18); BUN/Creat Ratio 8.6 RATIO (10-20); Calcium,Total 9.2 mg/dL (8.5-10.1); Chloride 108 mmol/L (98-107); Creatinine, Serum 1.16 mg/dL (0.70-1.30); EST Glomerular Filtration Rate 68 mL/min (>60); Est Glom Filt Rate - Afr Amer 82 mL/min (>60); Glucose 108 mg/dL (74-106); Potassium 3.6 mmol/L (3.5-5.1); Sodium Level 141 mmol/L (136-145)
== END | disposition home or self-care (01) ==
PROVIDERS: PCP Internal Medicine Infectious Disease
DX: N17.9 Acute kidney failure, unspecified (principal)
CPT/HCPCS: 36415; 80048

== ENCOUNTER → 2022-06-21 | Outpatient (CLI) | payer OTHER, SELFPAY ==
--- NOTE | 2022-06-21 15:33 | STRESSREP ---
Stress Test Report Pharmacologic myocardial perfusion stress test. 61-year-old man with history of dyspnea on exertion. Stress protocol: Resting EKG demonstrates sinus rhythm with a rate of 100 bpm normal intervals are noted resting blood pressure is 126/90 mmHg. 0.4 mg of regadenoson was infused per usual protocol followed by rapid intravenous saline flush injection continuous EKG monitoring was performed. The maximum heart rate attained was 107 bpm which was 67% of max impacted heart rate the maximum workload was 1 metabolic equivalent. At rest there were no ST or T wave changes noted to suggest abnormal flow reserve and at peak infusion nonspecific ST changes were noted with did not meet the criteria for ischemia. No clinical angina was noted. Myocardial perfusion protocol. 14.7 mCi of technetium 99m sestamibi was injected at rest. 0.4 mg of regadenoson was infused per usual protocol. At peak infusion 44.6 mCi of technetium 99m sestamibi was injected stress images were obtained stress and rest images were reconstructed and compared in the short axis vertical long and horizontal long axis. Gated images were also obtained. Perfusion SPECT analysis: Review of the images demonstrate normal uptake of tracer noted in all areas of the myocardium. There is a small area of the mid anterior wall with mildly reduced perfusion. The resting images demonstrate a similar patent on the resting images. With reduced perfusion in the mid anterior wall. A minimal amount of improvement however cannot be completely excluded suggesting a mild amount of mid anterior ischemia. Gated SPECT analysis: The gated ejection fraction is noted to be 48%. Conclusion: Pharmacologic myocardial perfusion stress test with possible mild mid anterior ischemia present. Previous small myocardial infarction or attenuation artifact cannot be completely excluded. Mild cardiomyopathy present.
== END | disposition home or self-care (01) ==
LOC: CVS 06:43
PROVIDERS: PCP Internal Medicine Infectious Disease; Referring Provider Internal Medicine Pulmonary Disease; Visit Provider Internal Medicine Pulmonary Disease
DX: R06.00 Dyspnea, unspecified (principal)
CPT/HCPCS: 78452; 93017; A9500; A4216; J2785

== ENCOUNTER 2022-07-18 07:24 | Day surgery (SDC) | payer OTHER, SELFPAY ==
[2022-07-08 11:21] LABS: Hematocrit 34.7 % (40-54); Hemoglobin 11.1 g/dL (13.0-16.5); Mean Corpuscular Hgb 29.1 pg (27.0-32.0); Mean Corpuscular Volume 91.1 fL (80-94); Mean Platelet Vol. 8.9 fl (6.2-12.0); Platelet Count 287 K/mm3 (150-450); RBC Distribution Width CV 14.6 % (11.6-14.6); RBC Distribution Width SD 48.7 fl (35.1-43.9); Red Blood Count 3.81 M/mm3 (4.6-6.2); White Blood Count 9.4 K/mm3 (4.4-11.0)
[2022-07-08 11:25] LABS: Prothrombin Time (Protime)PT. 12.4 SECONDS (11.7-14.9)
[2022-07-08 11:26] LABS: Partial Thromboplast Time 32.4 Seconds (24.1-36.2)
[2022-07-08 16:12] LABS: Anion Gap 6 (5-15); BUN 15 mg/dL (7-18); BUN/Creat Ratio 10.3 RATIO (10-20); Calcium,Total 9.1 mg/dL (8.5-10.1); Chloride 107 mmol/L (98-107); Creatinine, Serum 1.46 mg/dL (0.70-1.30); EST Glomerular Filtration Rate 52 mL/min (>60); Est Glom Filt Rate - Afr Amer 63 mL/min (>60); Glucose 136 mg/dL (74-106); Potassium 4.1 mmol/L (3.5-5.1); Sodium Level 140 mmol/L (136-145)
[2022-07-17 07:54] VITALS: BMI 43.4
--- NOTE | 2022-07-17 13:13 | HP.PCM_ITS ---
History and Physical Date of Admission: 07/18/22 [facility] [address] [place] [address] Name:GAMA RAMIREZ : 1960 Provider: Dr. Aneudy Pantoja MD Age/Sex:? 62/M HPI HPI History of Present Illness Surgical H&P: Yes Details: This is a 62-year-old white male who presents today for outpatient cardiovascular consultation for concerns of chest discomfort concerning for angina pectoris, shortness of breath/dyspnea on exertion, and abnormal pharmacologic stress nuclear imaging study, superimposed upon a history of underlying hypertension and IgA nephropathy (biopsy positive).? He states for some time now he has been noticing with exertion a centralized chest pressure.? It does not necessarily radiate.? It can be associated with shortness of breath and dyspnea.? His symptoms are not necessarily associated with nausea, emesis, or diaphoresis.? His symptoms are relieved with rest.? They do not occur at rest nor do they occur at night. He does have lower extremity peripheral pitting edema.? He states his legs are half the size that they used to be.? He notes this issue has been going on for years.? He does wear compression type stockings. From a cardiovascular standpoint he has undergone evaluation which included a transthoracic echocardiogram and a pharmacologic stress nuclear imaging study.? The results are noted below. From a noncardiac standpoint he has been diagnosed with anemia and renal insufficiency/failure.? He apparently required 2 units of PRBCs.? Earlier this year with respect to his renal insufficiency his creatinine level was above 5.? It has significantly decreased.? He continues to follow with nephrology for these issues. He does have an ECG today.? He was noted to be in sinus rhythm with a low voltage QRS in the limb leads and poor R wave progression with consideration to a pulmonary disease process but also on previous anterior [place] of indeterminate age cannot be excluded as well as having findings potentially compatible with an inferior [place] of indeterminate age. Of note his echocardiogram did not suggest any obvious left ventricular regional wall motion abnormalities.? However it was a diminished quality study. His pharmacologic stress nuclear imaging study raised concerns of possible myocardial ischemia and could not exclude a previous infarction. Intake Vital Signs ? 04/27/2215:55 07/03/2215:07 07/03/2215:13 Height 5 ft 10.08 in 5 ft 10.08 in 5 ft 10 in Weight: ? ? 303 lb BMI ? ? 43.4 BP ? ? 120/78 Blood Pressure Location ? ? Lt brachial Position ? ? Sitting Respiration ? ? 18 Pulse ? ? 96 Pulse Source ? ? Auscultation Intake Visit Reasons:?ISCHEMIA/ REF. SIBILIA Radiographer Required: No Accompanied by: Allergies Sulfa (Sulfonamide Antibiotics) Allergy (Intermediate, Verified 07/03/22 15:13) Hives Medications cholecalciferol (vitamin D3) 50 mcg (2,000 unit) tablet (Vitamin D3) 1 tab DAILY Supplement 04/07/22 [History Confirmed 07/03/22] sildenafil (pulm.hypertension) 20 mg tablet 1 tab PO DAILY BP 04/07/22 [History Confirmed 07/03/22] acetaminophen 325 mg tablet (Tylenol) 650 mg PO Q4H PRN PRN Fever, pain 1-10 #0 tabs 04/13/22 [Rx Confirmed 07/03/22] ascorbic acid (vitamin C) 500 mg tablet 500 mg PO BID Supplement 04/13/22 [History Confirmed 07/03/22] ferrous sulfate 325 mg (65 mg iron) tablet,delayed release 325 mg PO QODAY Supplement 04/13/22 [History Confirmed 07/03/22] bumetanide 0.5 mg tablet 1 mg PO DAILY #60 tabs 05/04/22 [Rx Confirmed 07/03/22] losartan 50 mg tablet 1 tab PO DAILY BP #30 tabs 05/04/22 [Rx Confirmed 07/03/22] pantoprazole 40 mg tablet,delayed release (Protonix) 40 mg PO DAILY Stomach acid #30 tabs 05/04/22 [Rx Confirmed 07/03/22] potassium chloride 20 mEq tablet,extended release(part/cryst) (Klor-Con M) 20 meq PO DAILYCM #60 tabs 05/04/22 [Rx Confirmed 07/03/22] sertraline 50 mg tablet 50 mg PO DAILY #30 tabs 05/04/22 [Rx Confirmed 07/03/22] trazodone 100 mg tablet 100 mg PO QHS #30 tabs 05/04/22 [Rx Confirmed 07/03/22] allopurinol 100 mg tablet 200 mg PO DAILY Gout 07/03/22 [History Confirmed 07/03/22] aspirin 81 mg tablet,delayed release 81 mg PO DAILY #1 TAB 07/03/22 [Rx Confirmed 07/03/22] colchicine 0.6 mg tablet 0.6 mg PO Q OTHER DAY 07/03/22 [History] metoprolol tartrate 25 mg tablet 25 mg PO BID #60 tabs 07/03/22 [Rx Confirmed 07/03/22] PFSH Medical History? Abnormal stress test Acidosis MAXI (acute kidney injury) Chronic anemia Chronic tophaceous gout CKD (chronic kidney disease), stage III Essential hypertension GERD (gastroesophageal reflux disease) Gout of left knee HTN (hypertension) Hyperuricemia Left knee DJD Leg edema Morbid obesity Proteinuria Venous insufficiency (chronic) (peripheral) Venous stasis Surgical History? History of cholecystectomy History of right hip replacement History of umbilical hernia repair Family History? Father?? Prostate cancer Diabetes Hypertension Myocardial infarction,? Onset Age: 67Grandfather Prostate cancerMother Diabetes HypertensionOther Colon cancer Social History? household members:? spouse Smoking Status:? Never smoker alcohol intake:? never substance use type:? does not use caffeine:? Yes (Rare) ROS Const Const: Positive for fatigue (increased) and weakness (increased); Negative for body ache, fever(s), headache(s), chills, frequent falls, night sweats, daytime sleepiness, difficulty sleeping, excessive sweating, weight gain, weight loss, increased appetite, poor appetite, anorexia or other Eyes Eyes: Negative for blurry vision or double vision ENT ENT: Negative for headache(s), dizziness or balance problems Cardio Chest Pain: Yes Character: other (heaviness) Onset: exercise Location: mid sternal Duration: brief Relieving: rest Palpitations: No Edema: None (wears compression socks) Muscle aches with walking: None Resp Respiratory: Positive for SOB with activity (increased); Negative for SOB at rest, SOB orthopnea\SOB lying down, Cough, Coughing up blood/hemoptysis, chest congestion, pain on inspiration, snoring, stridor, wheezing, crackles, paroxysmal nocturnal dyspnea or other Musc Musc: Negative for muscle aches/ myalgia, muscle weakness, joint pain or balance problems Neuro Neuro: Positive for weakness (increased); Negative for dizziness, lightheadedness, near syncope, syncope, orthostatic symptoms, frequent falls, headache(s), confusion, memory loss, restless legs, blurry vision, double vision, vertigo, seizures, lack of coordination or other Endo Endo: Positive for fatigue (increased); Negative for excessive sweating Cardiology Exam Const Appearance: cooperative, healthy appearing, comfortable, no acute distress, well developed and well groomed Nutritional Appearance: obese Orientation: alert, awake and oriented x3 Head Head: normal to inspection, normocephalic and atraumatic Ears: hearing grossly normal bilaterally Nose: external nose normal Face and Sinus: face symmetric Eyes Eyelids: eyelids normal Conjunctivae: conjunctivae normal Pupils: PERRL EOM: EOM intact bilaterally Neck Neck: normal visual inspection and full ROM Carotids: normal carotid upstroke Chest Chest inspection: normal inspection of the chest, symmetric chest movement and normal respiratory effort Auscultation: Bilateral: Clear to Auscultation Cardio Palpation: normal PMI Rate: regular rate Rhythm: regular rhythm Heart sounds: S1 normal and S2 normal GI GI: normal to inspection, soft, bowel sounds present and obese Neuro General: patient alert, patient awake, patient oriented x3, gait normal and moves all extremities Skin Skin: no rashes or lesions noted Extremities Pulses: Normal: Right Radial Pulse and Left Radial Pulse Lower Extremity Edema: +3: Bilateral Psych Psychological: normal affect Supplemental Info Supplemental Information And thoracic echocardiogram: 04-08-2022 Interpretation Summary Normal LV size. Left ventricular systolic function is normal. The estimated ejection fraction is 60 %. Contrast injection was performed. The study was technically limited. The study was technically difficult. Stress test: 06-21-2022 Stress Test Report Pharmacologic myocardial perfusion stress test. 61-year-old man with history of dyspnea on exertion. Stress protocol: Resting EKG demonstrates sinus rhythm with a rate of 100 bpm normal intervals are noted resting blood pressure is 126/90 mmHg.? 0.4 mg of regadenoson was infused per usual protocol followed by rapid intravenous saline flush injection continuous EKG monitoring was performed.? The maximum heart rate attained was 107 bpm which was 67% of max impacted heart rate the maximum workload was 1 metabolic equivalent.? At rest there were no ST or T wave changes noted to suggest abnormal flow reserve and at peak infusion nonspecific ST changes were noted with did not meet the criteria for ischemia.? No clinical angina was noted. Myocardial perfusion protocol. 14.7 mCi of technetium 99m sestamibi was injected at rest.? 0.4 mg of regadenoson was infused per usual protocol.? At peak infusion 44.6 mCi of technetium 99m sestamibi was injected stress images were obtained stress and rest images were reconstructed and compared in the short axis vertical long and horizontal long axis.? Gated images were also obtained. Perfusion SPECT analysis: Review of the images demonstrate normal uptake of tracer noted in all areas of the myocardium.? There is a small area of the mid anterior wall with mildly reduced perfusion.? The resting images demonstrate a similar patent on the resting images.? With reduced perfusion in the mid anterior wall.? A minimal amount of improvement however cannot be completely excluded suggesting a mild amount of mid anterior ischemia. Gated SPECT analysis: The gated ejection fraction is noted to be 48%. Conclusion: Pharmacologic myocardial perfusion stress test with possible mild mid anterior ischemia present.? Previous small myocardial infarction or attenuation artifact cannot be completely excluded.? Mild cardiomyopathy present. Chest x-ray: 04-07-2022 FINDINGS: EKG electrodes are seen. Mild elevation of the right hemidiaphragm.? There is no demonstrated pleural abnormality. Normal size heart. ? Normal mediastinum and nargis.? Normal visualized pulmonary arteries.? There is atherosclerotic tortuosity of the aortic arch and descending thoracic aorta. There are diffuse degenerative changes of the visualized thoracic spine. Normal visualized ribs, clavicles, and shoulders. There is no demonstrated abnormality of the visualized soft tissue structures of the upper abdomen. RAD/Chest 1 View (Portable) IMPRESSION: No acute abnormality is seen. ? Electronically Signed: Sergio Pollard MD at 13:17 EDT Reading Location ID and State: 603 / [place] Labs: ?? ? No Data to Display Diagnostics: ?? ? Electrocardiogram ? Echocardiogram ? Stress Test NM ? Stress Test ? Chest X-Ray ? Venous Doppler Study ? Pulmonary: ?? ? No Data to Display Assessment and Plan Assessment and Plan (1) Angina pectoris: ?Status:?Acute ?Plan: He does have symptoms compatible with angina pectoris. At the moment he will initiate additional medical therapy with aspirin 81 mg p.o. daily. He will also initiate medical therapy with metoprolol tartrate 25 mg p.o. twice daily. He is currently on a vasodilator and thus cannot initiate nitrate therapy. Ideally he is to be recommended for further evaluation with diagnostic cardiac catheterization.? The procedure and risk were discussed with him.? He was agreeable to this approach. However prior to proceeding this manner an inquiry will be made to his dry kiln operator as to whether or not he can proceed with such a IV contrast related study based upon his history of his IgA nephropathy and his recent acute renal insufficiency, etc. (2) Shortness of breath: ?Status:?Acute ?Plan: He does have shortness of breath and dyspnea. He may have an angina pectoris equivalent. The same time he may have a separate underlying pulmonary disease process. He is being scheduled for upcoming PFTs in the near future by his animal care attendant. He will continue his cardiac evaluation as noted. (3) Abnormal stress test: ?Status:?Acute ?Plan: His stress test is abnormal. Hopefully he will be able to proceed with a diagnostic cardiac catheterization. If not he may need to be managed medically for presumed CAD/myocardial ischemia. (4) Essential hypertension: ?Status:?Acute ?Plan: He will continue medical therapy as he is able. (5) Acute on chronic anemia: ?Status:?Chronic ?Plan: He remains somewhat anemic. This could contribute to his shortness of breath and dyspnea on top of any underlying cardiopulmonary disease process (6) IgA nephropathy: ?Status:?Suspected ?Plan: He states he has been diagnosed with IgA nephropathy biopsy. He will continue to follow with his dry kiln operator for this. Based upon this information will be requested from his dry kiln operator as to how to proceed with diagnostic cardiac catheterization. ? ? ? Orders: Orders 12 Lead EKG performed by [facility] Today I10 - Essential (primary) hypertension, R94.39 - Abnormal result of other cardiovascular function study ? Medications: New aspirin 81 mg? PO DAILY 1 TAB 0RF ? ? metoprolol tartrate 25 mg? PO BID 60 tabs 6RF ? ? Plan Details Additional Comments: The above was discussed with the patient with his spouse present.? They were agreeable to this approach. Thank you for allowing me to participate in the care of your patient.? Please don't hesitate to call if any issues arise. This note was generated using a voice recognition system and there may be incorrect words, spelling or punctuation that were not noted when reviewing the office note prior to saving. Follow Up: ? ? 3 Months (PFM ) COVID (Procedure Consent) Procedure Criteria Procedure Criteria: Yes Elective The surgeon/proceduralist and patient have discussed in detail the risk of exposure to and/or potential harm posed by the COVID-19 virus with having a surgery/procedure at this time versus the risk of? delaying the surgery/procedure. It is not possible to know either the risk of delaying the surgery or procedure or chance of getting an infection with perfect accuracy, but a joint decision was made between the patient and the surgeon/proceduralist ?to proceed at this time with the scheduled surgery/procedure as indicated on the consent form. Coding Level of Care Code Off vis,new,level 4 Diagnoses Angina pectoris? I20.9 Shortness of breath? R06.02 Abnormal stress test? R94.39 Essential hypertension? I10 Acute on chronic anemia? D64.9 IgA nephropathy? N02.8 Coding Level of Care Code Off vis,new,level 4 Diagnoses Angina pectoris? I20.9 Shortness of breath? R06.02 Abnormal stress test? R94.39 Essential hypertension? I10 Acute on chronic anemia? D64.9 IgA nephropathy? N02.8 Aneudy Pantoja MD CC:? Dr. Nany Spencer MD; Dr. Dao Spaulding MD; Dr. Basil Romero MD ~ Assessment & Plan Addt'l Comments Addendum: The patient's case has previously been reviewed by the patient's dry kiln operator. The patient's dry kiln operator noted the patient could proceed with further evaluation with diagnostic cardiac catheterization as deemed appropriate. The patient's case was discussed and reviewed with the patient. He was agreeable to this approach.
--- NOTE | 2022-07-19 15:03 | CL.D_ITS ---
Patient Name: GAMA AGUILERA Study Date: 07/18/2022 Performing: Marquez Romano MD Ht: 70 inches 177.8 cm : 1960 Wt: 303.4 lbs 137.44 kg Age: 62 Gender: male BSA: 2.49 PROCEDURE(S) PERFORMED [id number]-([id number])[facility] CLINICAL PROFILE AND INDICATIONS Indications: Suspected CAD Heart Failure: None Stress/Imaging Stress Test w/SPECT MPI: Yes Result: Positive Intermediate RiskStress Test with SPECT MPI: Positive Intermediate Risk CAD Presentations: Unstable angina. CONCLUSIONS Mild luminal irregularities in LAD. Otherwise angiographically normal coronaries RECOMMENDATIONS DESCRIPTION OF PROCEDURE The patient arrived to the procedure lab. The risks and benefits of the procedure as well as a full description of our services here and current unavailability of surgical backup were fully explained to the patient and/or their significant other prior to the catheterization. The Timeout was completed, verifying the correct patient and procedure. The patient's procedural site was prepped and draped in the usual fashion. Local anesthetic was given subcutaneously to right radial region with Lidocaine 2%. Using a modified Seldinger technique, arterial access was obtained via the right radial artery, a 6Fr sheath was inserted. Left Coronary Artery selective angiography was performed in multiple views using a 5 Fr. JL3.5 catheter. LV to AO pullback pressures were then recorded. Right Coronary Artery selective angiography was then performed in multiple views using a 6 Fr. JR 4 catheter.The arterial sheath was pulled and a TR Band was applied for hemostasis 10cc air inserted. CORONARY ANGIOGRAPHY DOMINANCE: Right Dominant LEFT MAIN: Angiographically normal LEFT ANTERIOR DESCENDING ARTERY: Mild luminal irregularities CIRCUMFLEX ARTERY: Angiographically normal RIGHT CORONARY ARTERY: Angiographically normal COMPLICATIONS No Complications PROCEDURE MEDICATIONS Fentanyl 50 mcg IV Versed 1 mg IV Oxygen: 2 L/min via nasal cannula Heparin given IA 07/18/2022 10:13:53 Verapamil 2.5mg, Ntg 100mcgs, 3000 units of Heparin given IA 07/18/2022 10:13:53 SUMMARY OF HEMODYNAMIC DATA Time AIR REST ECG 07:50:48 AO 94/70 (80) SA 10:16:15 LV 116/-3, 15 10:19:31 LV 113/1, 17 10:19:37 LVp 112/-2, 16 10:19:42 AO 114/1 (38) 10:19:47 Signed By Marquez Romano MD On 07/19/2022 15:02:47 Marquez Romano MD
== END 2022-07-18 11:55 | disposition home or self-care (01) ==
LOC: CLSP 07:25
PROVIDERS: PCP Internal Medicine Infectious Disease; Referring Provider Internal Medicine Cardiovascular Disease; Visit Provider Internal Medicine Cardiovascular Disease
DX: I25.110 Atherosclerotic heart disease of native coronary artery with unstable angina pectoris (principal); E66.01 Morbid (severe) obesity due to excess calories; N18.9 Chronic kidney disease, unspecified; D64.9 Anemia, unspecified; I12.9 Hypertensive chronic kidney disease with stage 1 through stage 4 chronic kidney disease, or unspecified chronic kidney disease; K21.9 Gastro-esophageal reflux disease without esophagitis; I87.2 Venous insufficiency (chronic) (peripheral); N02.8 Recurrent and persistent hematuria with other morphologic changes; M1A.9XX1 Chronic gout, unspecified, with tophus (tophi); Z79.82 Long term (current) use of aspirin; Z79.899 Other long term (current) drug therapy
CPT/HCPCS: 36415; 80048; 85027; 85610; 85730; 93454; 99152; J7040; Q9967; C1769; C1894

== ENCOUNTER → 2022-09-09 | Outpatient (CLI) | payer OTHER, SELFPAY ==
[2022-09-09 10:27] LABS: Absolute Lymphocyte Count 3.37 X10^3/uL (0.83-4.51); Absolute Neutrophil Count 4.3 X10^3/uL (2.0-7.7); Basophil# 0.04 X10^3/uL; Basophil% 0.5 % (0-1); Eosinophil# 0.17 X10^3/uL; Hematocrit 38.7 % (40-54); Hemoglobin 12.4 g/dL (13.0-16.5); Lymphocyte # 3.37 X10^3/ul (0.83-4.51); Lymphocyte % 39.6 % (19-41); Mean Corpuscular Hgb 29.4 pg (27.0-32.0); Mean Corpuscular Volume 91.7 fL (80-94); Mean Platelet Vol. 9.3 fl (6.2-12.0); Monocyte# 0.58 X10^3/uL; Monocyte% 6.8 % (0-10); NRBC Flagged by Analyzer 0 % (0-5); Neutrophil # 4.31 X10^3/uL (2.7-7.7); Neutrophil % 50.5 % (47-70); Platelet Count 264 K/mm3 (150-450); RBC Distribution Width CV 15.2 % (11.6-14.6); RBC Distribution Width SD 50.8 fl (35.1-43.9); Red Blood Count 4.22 M/mm3 (4.6-6.2); White Blood Count 8.5 K/mm3 (4.4-11.0)
[2022-09-09 10:32] LABS: Protein, Urine (Random) 10.9 mg/dL (<11.9); Protein:Creat Ratio 183 mg/g CRE (0-200)
[2022-09-09 10:52] LABS: Albumin, Serum 3.8 g/dL (3.2-5.0); BUN 23 mg/dL (7-18); BUN/Creat Ratio 16.5 RATIO (10-20); Calcium,Total 9.3 mg/dL (8.5-10.1); Chloride 110 mmol/L (98-107); Creatinine, Serum 1.39 mg/dL (0.70-1.30); EST Glomerular Filtration Rate 55 mL/min (>60); Est Glom Filt Rate - Afr Amer 66 mL/min (>60); Glucose 113 mg/dL (74-106); Phosphorus 3.8 mg/dL (2.5-4.9); Potassium 4.4 mmol/L (3.5-5.1); Sodium Level 142 mmol/L (136-145)
== END | disposition home or self-care (01) ==
LOC: LAB 10:05
PROVIDERS: PCP Internal Medicine Infectious Disease; Visit Provider Internal Medicine Nephrology
DX: N17.9 Acute kidney failure, unspecified (principal)
CPT/HCPCS: 36415; 80069; 82570; 84156; 85025

== ENCOUNTER → 2022-10-04 | Outpatient (CLI) | payer OTHER, SELFPAY ==
[2022-10-04 17:42] LABS: Anion Gap 8 (5-15); BUN 21 mg/dL (7-18); Calcium,Total 9.4 mg/dL (8.5-10.1); Chloride 105 mmol/L (98-107); Creatinine, Serum 1.62 mg/dL (0.70-1.30); EST Glomerular Filtration Rate 46 mL/min (>60); Est Glom Filt Rate - Afr Amer 56 mL/min (>60); Glucose 96 mg/dL (74-106); Potassium 4.1 mmol/L (3.5-5.1); Sodium Level 140 mmol/L (136-145)
[2022-10-04 17:44] LABS: BNP,B-Type NATRIURETIC PEPTIDE 30.2 pg/mL (0-100)
== END | disposition home or self-care (01) ==
LOC: LAB 16:33
PROVIDERS: PCP Internal Medicine Infectious Disease; Visit Provider Nurse Practitioner Gerontology
DX: R06.02 Shortness of breath (principal)
CPT/HCPCS: 36415; 80048; 83880

== ENCOUNTER → 2023-01-12 | Outpatient (CLI) | payer OTHER, SELFPAY ==
[2023-01-12 16:41] LABS: Bacteria 0 SEEN /hpf (None Seen); Mucous, Urine 0 SEEN /hpf (<or=2+); Red Blood Cells-Urine 0 SEEN /hpf (0-5); White Blood Cells 0 SEEN /hpf (0-5)
[2023-01-12 17:18] LABS: Color, Urine Yellow (Yellow); Glucose, Dipstick Normal (Normal); Ketone-Dipstick Negative (Negative); Leukocyte Esterase-Dipstick 100 /ul (Negative); Nitrite-Dipstick Negative (Negative); Occult Blood-Urine 10 /ul (Negative); Protein-Dipstick Negative (Negative); Specific Gravity, Urine 1.015 (1.002-1.030); Urine Bilirubin Dipstick Negative (Negative); Urine Clarity Clear (Clear); Urine Urobilinogen Normal (Normal)
[2023-01-12 17:30] LABS: Squamous Epithelial Cells - UA 0-5 SEEN /hpf (0-5)
[2023-01-12 17:36] LABS: Anion Gap 8 (5-15); BUN 27 mg/dL (7-18); Calcium,Total 8.8 mg/dL (8.5-10.1); Chloride 109 mmol/L (98-107); Creatinine, Serum 1.59 mg/dL (0.70-1.30); EST Glomerular Filtration Rate 47 mL/min (>60); Est Glom Filt Rate - Afr Amer 57 mL/min (>60); Glucose 106 mg/dL (74-106); Potassium 4.8 mmol/L (3.5-5.1); Sodium Level 142 mmol/L (136-145)
[2023-01-12 17:39] LABS: Protein:Creat Ratio 132 mg/g CRE (0-200)
== END | disposition home or self-care (01) ==
LOC: LAB 16:37
PROVIDERS: PCP Internal Medicine Infectious Disease; Referring Provider Internal Medicine Nephrology; Visit Provider Internal Medicine Nephrology
DX: N18.31 Chronic kidney disease, stage 3a (principal)
CPT/HCPCS: 36415; 80048; 81001; 82570; 84156

== ENCOUNTER → 2023-01-18 | Outpatient (CLI) | payer OTHER, SELFPAY ==
--- NOTE | 2023-01-18 16:50 | US_ITS ---
STUDY: RENAL ULTRASOUND - COMPLETE REASON FOR EXAM: Male, 62 years old. MAXI . Hematuria. TECHNIQUE: Ultrasound evaluation of the kidneys was performed with real-time and static hansen-scale imaging. COMPARISON: None. FINDINGS: RIGHT KIDNEY: Normal location of the right kidney, which is normal in size. The right kidney measures 11.5 cm x 5 cm x 5.1 cm. There is a normal cortex of the right kidney. The renal cortex measures 1.4 cm. There is no right renal mass or cyst. There are no right renal calculi. There is no right hydronephrosis. DISTAL RIGHT URETER: There is non-visualization of the distal right ureter. There is no demonstrated right ureterovesical junction calculus. There is no demonstrated right ureteral jet. LEFT KIDNEY: Normal location of the left kidney, which is normal in size. The left kidney measures 12.3 cm x 3.8 cm x 6 cm. There is a normal cortex of the left kidney. The renal cortex measures 1.4 cm. There is a 1.8 cm x 1.9 cm x 2 cm cyst. There are no left renal calculi. There is no left hydronephrosis. DISTAL LEFT URETER: There is non-visualization of the distal left ureter. There is no demonstrated left ureterovesical junction calculus. There is no demonstrated left ureteral jet. BLADDER: The distended urinary bladder has a volume of 170 ml. The empty urinary bladder has a volume of 0 ml. There is a normal wall thickness of the distended urinary bladder. There is no demonstrated mass within the urinary bladder. There are no demonstrated bladder calculi. US/Kidney and Bladder IMPRESSION: Small left renal cyst. Electronically Signed: Sergio Pollard MD at 14:38 EDT ,
== END | disposition home or self-care (01) ==
LOC: US 16:47
PROVIDERS: PCP Internal Medicine Infectious Disease; Referring Provider Internal Medicine Nephrology; Visit Provider Internal Medicine Nephrology
DX: N17.9 Acute kidney failure, unspecified (principal)
CPT/HCPCS: 76770

== ENCOUNTER → 2023-03-03 | Outpatient (CLI) | payer OTHER, SELFPAY ==
[2023-03-03 12:09] LABS: Hematocrit 35.3 % (40-54); Hemoglobin 11.8 g/dL (13.0-16.5); Mean Corp Hgb Conc 33.4 g/dL (32-36); Mean Corpuscular Volume 98.6 fL (80-94); Mean Platelet Vol. 9.7 fl (6.2-12.0); Platelet Count 213 K/mm3 (150-450); RBC Distribution Width CV 14.6 % (11.6-14.6); RBC Distribution Width SD 53.1 fl (35.1-43.9); Red Blood Count 3.58 M/mm3 (4.6-6.2); White Blood Count 7.1 K/mm3 (4.4-11.0)
[2023-03-03 12:55] LABS: Albumin, Serum 3.6 g/dL (3.2-5.0); BUN 27 mg/dL (7-18); BUN/Creat Ratio 15.9 RATIO (10-20); Calcium,Total 9.1 mg/dL (8.5-10.1); Chloride 108 mmol/L (98-107); EST Glomerular Filtration Rate 43 mL/min (>60); Est Glom Filt Rate - Afr Amer 53 mL/min (>60); Glucose 97 mg/dL (74-106); Phosphorus 3.9 mg/dL (2.5-4.9); Potassium 4.6 mmol/L (3.5-5.1); Sodium Level 142 mmol/L (136-145); Uric Acid 7.2 mg/dL (3.5-7.2)
[2023-03-03 12:59] LABS: Protein, Urine (Random) 6.1 mg/dL (<11.9); Protein:Creat Ratio 93 mg/g CRE (0-200)
[2023-03-05 07:39] LABS: PTHIN 53.3 pg/mL (18.4-80.1)
[2023-03-05 07:45] LABS: Vitamin D,25 Hydroxy 44.6 ng/mL
== END | disposition home or self-care (01) ==
LOC: LAB 11:41
PROVIDERS: PCP Internal Medicine Infectious Disease; Referring Provider Internal Medicine Nephrology; Visit Provider Internal Medicine Nephrology
DX: N02.8 Recurrent and persistent hematuria with other morphologic changes (principal); N17.9 Acute kidney failure, unspecified
CPT/HCPCS: 36415; 80069; 82306; 82570; 83970; 84156; 84550; 85027

== ENCOUNTER → 2023-10-15 | Outpatient (CLI) | payer OTHER, SELFPAY ==
[2023-10-15 17:27] LABS: Hematocrit 41.6 % (40-54); Hemoglobin 13.1 g/dL (13.0-16.5); Mean Corp Hgb Conc 31.5 g/dL (32-36); Mean Corpuscular Hgb 30.4 pg (27.0-32.0); Mean Corpuscular Volume 96.5 fL (80-94); Mean Platelet Vol. 9.5 fl (6.2-12.0); Platelet Count 232 K/mm3 (150-450); RBC Distribution Width CV 14.6 % (11.6-14.6); RBC Distribution Width SD 51.2 fl (35.1-43.9); Red Blood Count 4.31 M/mm3 (4.6-6.2); White Blood Count 7.2 K/mm3 (4.4-11.0)
[2023-10-15 17:49] LABS: Protein, Urine (Random) 37.4 mg/dL (<11.9); Protein:Creat Ratio 190 mg/g CRE (0-200)
[2023-10-15 17:55] LABS: Albumin, Serum 3.5 g/dL (3.2-5.0); BUN 19 mg/dL (7-18); BUN/Creat Ratio 13.5 RATIO (10-20); Calcium,Total 9.3 mg/dL (8.5-10.1); Chloride 105 mmol/L (98-107); Creatinine, Serum 1.41 mg/dL (0.70-1.30); EST Glomerular Filtration Rate 54 mL/min (>60); Est Glom Filt Rate - Afr Amer 65 mL/min (>60); Glucose 109 mg/dL (74-106); PTHIN 61.1 pg/mL (18.4-80.1); Phosphorus 3.4 mg/dL (2.5-4.9); Potassium 4.2 mmol/L (3.5-5.1); Sodium Level 134 mmol/L (136-145)
[2023-10-15 17:57] LABS: Vitamin D,25 Hydroxy 55.2 ng/mL
== END | disposition home or self-care (01) ==
LOC: LAB 16:43
PROVIDERS: PCP Internal Medicine Infectious Disease; Referring Provider Internal Medicine Nephrology; Visit Provider Internal Medicine Nephrology
DX: N02.8 Recurrent and persistent hematuria with other morphologic changes (principal)
CPT/HCPCS: 36415; 80069; 82306; 82570; 83970; 84156; 85027

== ENCOUNTER → 2024-04-03 | Outpatient (CLI) | payer OTHER, SELFPAY ==
[2024-04-03 17:52] LABS: Hematocrit 41.5 % (40-54); Hemoglobin 13.5 g/dL (13.0-16.5); Mean Corp Hgb Conc 32.5 g/dL (32-36); Mean Corpuscular Volume 95.2 fL (80-94); Mean Platelet Vol. 9.3 fl (6.2-12.0); Platelet Count 211 K/mm3 (150-450); RBC Distribution Width SD 52.6 fl (35.1-43.9); Red Blood Count 4.36 M/mm3 (4.6-6.2); White Blood Count 6.5 K/mm3 (4.4-11.0)
[2024-04-03 18:07] LABS: Protein, Urine (Random) 16.2 mg/dL (<11.9); Protein:Creat Ratio 108 mg/g CRE (0-200)
[2024-04-03 18:55] LABS: Albumin, Serum 3.5 g/dL (3.2-5.0); BUN 16 mg/dL (7-18); BUN/Creat Ratio 10.7 RATIO (10-20); Calcium,Total 9.2 mg/dL (8.5-10.1); Chloride 107 mmol/L (98-107); Creatinine, Serum 1.49 mg/dL (0.70-1.30); EST Glomerular Filtration Rate 50 mL/min (>60); Est Glom Filt Rate - Afr Amer 61 mL/min (>60); Glucose 101 mg/dL (74-106); Phosphorus 2.6 mg/dL (2.5-4.9); Potassium 3.9 mmol/L (3.5-5.1); Sodium Level 140 mmol/L (136-145)
[2024-04-03 19:00] LABS: Vitamin D,25 Hydroxy 58.8 ng/mL
== END | disposition home or self-care (01) ==
LOC: LAB 17:31
PROVIDERS: PCP Internal Medicine Infectious Disease; Referring Provider Internal Medicine Nephrology; Visit Provider Internal Medicine Nephrology
DX: N02.8 Recurrent and persistent hematuria with other morphologic changes (principal)
CPT/HCPCS: 36415; 80069; 82306; 82570; 83970; 84156; 85027

== ENCOUNTER → 2024-10-13 | Outpatient (CLI) | payer OTHER, SELFPAY ==
[2024-10-13 17:15] LABS: Hematocrit 43.1 % (40-54); Hemoglobin 14.4 g/dL (13.0-16.5); Mean Corp Hgb Conc 33.4 g/dL (32-36); Mean Corpuscular Hgb 30.8 pg (27.0-32.0); Mean Corpuscular Volume 92.1 fL (80-94); Platelet Count 198 K/mm3 (150-450); RBC Distribution Width CV 14.5 % (11.6-14.6); RBC Distribution Width SD 48.6 fl (35.1-43.9); Red Blood Count 4.68 M/mm3 (4.6-6.2); White Blood Count 6.3 K/mm3 (4.4-11.0)
[2024-10-13 17:27] LABS: Protein, Urine (Random) 83.5 mg/dL (<11.9); Protein:Creat Ratio 381 mg/g CRE (0-200)
[2024-10-13 17:32] LABS: Albumin, Serum 3.3 g/dL (3.2-5.0); BUN 10 mg/dL (7-18); BUN/Creat Ratio 9.3 RATIO (10-20); Calcium,Total 9.4 mg/dL (8.5-10.1); Chloride 105 mmol/L (98-107); Creatinine, Serum 1.07 mg/dL (0.70-1.30); EST Glomerular Filtration Rate 74 mL/min (>60); Est Glom Filt Rate - Afr Amer 89 mL/min (>60); Glucose 95 mg/dL (74-106); Phosphorus 2.3 mg/dL (2.5-4.9); Potassium 3.1 mmol/L (3.5-5.1); Sodium Level 140 mmol/L (136-145)
== END | disposition home or self-care (01) ==
LOC: LAB 16:30
PROVIDERS: PCP Internal Medicine Infectious Disease; Referring Provider Internal Medicine Nephrology; Visit Provider Internal Medicine Nephrology
DX: N02.8 Recurrent and persistent hematuria with other morphologic changes (principal)
CPT/HCPCS: 36415; 80069; 82570; 84156; 85027